=== PATIENT | male | born 1930 | race Caucasian/White ===

== ENCOUNTER → 2016-09-01 | Outpatient (CLI) | payer OTHER ==
[~2016-09-01] MED LIST: ALBUAER2 INH; ASPI81TA28 PO; ATOR-22 PO; FINA5TAB4 PO; LTN/10 PO; METO25TA56 PO; MULT-506 PO; OMEG10007 PO; OMEP40CA41 PO; TADA10TA PO
--- NOTE | 2016-09-01 10:38 | DIAGNOSTIC IMAGING REPORT ---
CT OF THE LUMBAR SPINE WITHOUT CONTRAST CT DOSE: 858.98 mGy.cm CLINICAL HISTORY: Lumbago. TECHNIQUE: Axial images of the lumbar spine were obtained without IV contrast. Sagittal and coronal reconstructions were viewed. COMPARISON STUDY: Lumbar spine radiographs June 08, 2011. FINDINGS: For purposes of numbering on this exam, the L5-S1 disc space is assigned to axial image 327 of 371. There is mild levoscoliosis of the lower lumbar spine. There is slight anterolisthesis of L4 and L5 likely due to facet arthrosis. There is a mild compression fracture of the superior endplate of L1 which is unchanged since exam of June 08, 2011. There is no acute lumbar spine fracture. There is no suspicious lesion by CT. There is moderate to severe multilevel degenerative disc disease with disc space narrowing, osteophytosis and vacuum disc phenomenon. There is moderate multilevel facet arthrosis. Paravertebral soft tissues are unremarkable. Central canal and neural foramen are suboptimally assessed by CT. There may be postsurgical changes at the L3-L4 level. There is suspected moderate central canal stenosis at L2-L3 with suspected severe central canal stenosis at L3-L4 and at least moderate central canal stenosis at L4-L5. There is moderate to severe multilevel neural foraminal stenosis. IMPRESSION: 1. No acute lumbar spine fracture or subluxation. Old mild L1 compression deformity which is unchanged since exam of June 08, 2011. 2. Moderate to severe multilevel degenerative disc disease and facet arthrosis with suspected moderate to severe multilevel central canal or neural foraminal stenosis, most pronounced at the L3-L4 and L4-L5 levels. Electronically signed by: Emmanuel Lim M.D. 09/01/2016 10:37 AM Dictated Date/Time: 09/01/2016 10:23 AM
== END | disposition home or self-care (01) ==
LOC: C.CTS 09:38
PROVIDERS: ATTEND Anesthesiology
DX: M54.5 Low back pain (principal)

== ENCOUNTER → 2016-11-16 | Outpatient (CLI) | payer OTHER ==
[~2016-11-16] MED LIST changes: -FINA5TAB4 PO
--- NOTE | 2016-11-16 13:30 | DIAGNOSTIC IMAGING REPORT ---
ULTRASOUND OF THE CAROTID ARTERIES CLINICAL HISTORY: Carotid artery stenosis status post right carotid endarterectomy. COMPARISON STUDY: Carotid artery ultrasound dated 10/06/2015. CT angiogram of the neck dated 10/15/2014. TECHNIQUE: Real-time, grayscale, and color Doppler sonography of the carotid arteries is performed. Images are reviewed in the transverse and longitudinal planes. FINDINGS: Blood pressure in the right arm measures 121/58 and blood pressure in the left arm measures 108/54. The carotid arteries are patent bilaterally and demonstrate antegrade flow. There is moderate echogenic shadowing atherosclerotic plaque seen bilaterally. Normal doppler arterial waveforms are seen throughout. Velocity measurements are listed below. Common carotid peak systolic velocity (cm/sec): RIGHT: 97 LEFT: 92 ICA proximal peak systolic velocity (cm/sec): RIGHT: 215 LEFT: 171 ICA mid peak systolic velocity (cm/sec): RIGHT: 245 LEFT: 170 ICA distal peak systolic velocity (cm/sec): RIGHT: 105 LEFT: 155 ICA/CC peak systolic ratio: RIGHT: 2.5 LEFT: 1.8 Antegrade flow was shown in the vertebral arteries. The external carotid arteries are patent. IMPRESSION: 1. Atherosclerotic plaque with evidence of 50-69% stenosis in the left proximal internal carotid artery by velocity criteria. 2. There is evidence of greater than 70% stenosis in the proximal to mid right internal carotid artery by velocity criteria. 3. These findings are similar to the 10/06/2015 examination. 4. Antegrade flow is shown in the vertebral arteries. Electronically signed by: Chicho Sanders M.D. 11/16/2016 1:29 PM Dictated Date/Time: 11/16/2016 1:26 PM
== END | disposition home or self-care (01) ==
LOC: C.ULTR 12:42
PROVIDERS: ATTEND Surgery
DX: I65.23 Occlusion and stenosis of bilateral carotid arteries (principal)

== ENCOUNTER → 2017-03-01 | Outpatient (CLI) | payer OTHER ==
[2017-03-01 13:09] LABS: ALT/SGPT 21 U/L (12-78); AST/SGOT 20 U/L (15-37); BLOOD UREA NITROGEN 24 mg/dl (7-18); BUN/CREATININE RATIO 21.6 (10-20); CALCIUM 9.2 mg/dl (8.5-10.1); CARBON DIOXIDE 25 mmol/L (21-32); CHLORIDE 108 mmol/L (98-107); CHOLESTEROL 118 mg/dl (0-200); GLUCOSE 123 mg/dl (70-99); POTASSIUM 4.2 mmol/L (3.5-5.1); SODIUM 140 mmol/L (136-145); TRIGLYCERIDES 90 mg/dl (0-150); VERY LOW DENSITY LIPOPROT CALC 18 mg/dl
[2017-03-01 13:11] LABS: ALB/GLOB RATIO 0.9 (0.9-2); ALKALINE PHOSPHATASE 139 U/L (45-117); CHOLESTEROL/HDL RATIO 2.3; ESTIMATED AVERAGE GLUCOSE 151 mg/dl; HA1C FLAG Normal (Normal); HDL CHOLESTEROL 52 mg/dl; LDL CHOLESTEROL CALCULATED 48 mg/dl
== END | disposition home or self-care (01) ==
LOC: C.LABPVFM 07:42
PROVIDERS: ATTEND Family Medicine
DX: I10 Essential (primary) hypertension (principal); E78.00 Pure hypercholesterolemia, unspecified; E80.6 Other disorders of bilirubin metabolism; J43.9 Emphysema, unspecified; R73.01 Impaired fasting glucose

== ENCOUNTER → 2017-06-15 | Outpatient (CLI) | payer OTHER ==
[2017-06-15 17:58] LABS: ALB/GLOB RATIO 0.7 (0.9-2); ALT/SGPT 26 U/L (12-78); AST/SGOT 23 U/L (15-37); BLOOD UREA NITROGEN 16 mg/dl (7-18); BUN/CREATININE RATIO 16.9 (10-20); CALCIUM 8.9 mg/dl (8.5-10.1); CARBON DIOXIDE 24 mmol/L (21-32); CHLORIDE 108 mmol/L (98-107); CREATININE 0.97 mg/dl (0.60-1.40); GLUCOSE 106 mg/dl (70-99); POTASSIUM 4.3 mmol/L (3.5-5.1); SODIUM 136 mmol/L (136-145)
[2017-06-15 17:59] LABS: ALKALINE PHOSPHATASE 131 U/L (45-117)
[2017-06-16 06:23] LABS: ESTIMATED AVERAGE GLUCOSE 143 mg/dl; HA1C FLAG Normal (Normal)
== END | disposition home or self-care (01) ==
LOC: C.LABPVFM 11:32
PROVIDERS: ATTEND Family Medicine
DX: E11.9 Type 2 diabetes mellitus without complications (principal)

== ENCOUNTER → 2017-10-16 | Outpatient (CLI) | payer OTHER ==
[2017-10-16 13:16] LABS: HEMOGLOBIN A1C 6.6 % (4.5-5.6)
[2017-10-16 13:39] LABS: ALBUMIN 3.4 gm/dl (3.4-5.0); ALT/SGPT 27 U/L (12-78); AST/SGOT 25 U/L (15-37); BLOOD UREA NITROGEN 21 mg/dl (7-18); CALCIUM 8.5 mg/dl (8.5-10.1); CARBON DIOXIDE 24 mmol/L (21-32); CHOLESTEROL 109 mg/dl (0-200); CREATININE 1.06 mg/dl (0.60-1.40); GLUCOSE 124 mg/dl (70-99); SODIUM 140 mmol/L (136-145)
[2017-10-16 13:42] LABS: ALKALINE PHOSPHATASE 105 U/L (45-117); LDL CHOLESTEROL CALCULATED 31 mg/dl; TOTAL PROTEIN 7.1 gm/dl (6.4-8.2)
== END | disposition home or self-care (01) ==
LOC: C.LABPVFM 07:36
PROVIDERS: ATTEND Family Medicine
DX: I10 Essential (primary) hypertension (principal); E78.00 Pure hypercholesterolemia, unspecified; E11.9 Type 2 diabetes mellitus without complications; I48.0 Paroxysmal atrial fibrillation; J45.909 Unspecified asthma, uncomplicated; I25.10 Atherosclerotic heart disease of native coronary artery without angina pectoris

== ENCOUNTER 2018-06-15 09:34 | Inpatient (IN) ==
[2018-06-15] MEDS ORDERED: LEVALBUTEROL HCL 1.25 MG/3 ML NEB NEB STA (10:07)
--- NOTE | 2018-06-15 10:32 | XRay Report ---
XR chest 1V portable CLINICAL HISTORY: Sepsis. COMPARISON STUDY: Chest radiograph September 22, [address] December 06, 2017. FINDINGS: Incidental note is made of a right shoulder arthroplasty and a dual lead left subclavian pa cemaker. Cardiac mediastinal silhouette is stable. There is no pneumothorax. A trace left pleural eff usion is suspected. Nodular left mid and lower lung airspace opacity is noted. A 2.6 cm nodular opaci ty is noted. Findings have developed since exam of December 06, 2017. There is no evidence for pulmonary edema. IMPRESSION: 1. Left lower lung nodular airspace opacity which favors pneumonia. Post treatment radiographs to ens ure resolution are recommended to exclude the possibility of a pulmonary nodule. 2. Trace left pleural effusion. 3. No evidence for pulmonary edema. Electronically signed by: Emmanuel Lim M.D. 06/15/2018 10:31 AM
[2018-06-15] MEDS ORDERED: levoFLOXacin 500 MG TAB PO STA (10:36)
[2018-06-15] MEDS ORDERED: PIPERACILLIN/TAZOBACTAM 4.5 GM/120 ML BAG IV ONE (10:36)
[2018-06-15] MEDS ORDERED: PIPERACILL/TAZOBAC CONSULT ACTIVE PRN ×2 (10:36→13:43)
[2018-06-15] MEDS ORDERED: methylPREDNISolone 60 MG in SYRINGE 1 ML IV STA (10:42)
[2018-06-15] MEDS ORDERED: SODIUM CHLORIDE 0.9% 1000ML 1,000 ML IV ONE (10:42)
[2018-06-15 10:55] LABS: Basophils # (auto) 0.03 K/uL (0-0.2); Basophils % (auto) 0.2 %; Hematocrit (blood only) 43.2 % (42-52); Hemoglobin 14.8 g/dL (14.0-18.0); Immature Granulocytes # (auto) 0.05 K/uL (0.00-0.02); Immature Granulocytes % (auto) 0.3 %; Lymphocytes # (auto) 0.56 K/uL (1.2-3.4); Lymphocytes % (auto) 3.5 %; Mean Corpuscular Hgb Conc 34.3 g/dL (32-36); Mean Corpuscular Volume 96.6 fL (80-100); Mean Platelet Volume 10.5 fL (7.4-10.4); Monocytes # (auto) 1.43 K/uL (0.11-0.59); Neutrophils # (auto) 13.79 K/uL (1.4-6.5); Platelet Count 190 K/uL (130-400); RDW Coefficient of Variation 13.2 % (11.5-14.5); RDW Standard Deviation 46.6 fL (36.4-46.3); Red Blood Count 4.47 M/uL (4.7-6.1); White Blood Count 15.86 K/uL (4.8-10.8)
[2018-06-15 11:06] LABS: Influenza A virus by PCR Neg for Influ A (Neg); Influenza B virus by PCR Neg for Influ B (Neg)
[2018-06-15 11:08] LABS: INR 1.2 (0.9-1.1); Partial Thromboplastin Ratio 1.2; Partial Thromboplastin Time 31.5 Seconds (21.0-31.0)
[2018-06-15 11:12] LABS: Albumin Level 2.9 gm/dl (3.4-5.0); BUN Creatinine Ratio 16.3 (10-20); Calcium 8.8 mg/dl (8.5-10.1); Creatinine Clr Calc Pharmacy 39.2 ml/min; Est GFR (African American) 56.7; Potassium 4.1 mmol/L (3.5-5.1)
[2018-06-15 11:22] LABS: Albumin Globulin Ratio 0.7 (0.9-2); Bilirubin,Total 2.2 mg/dl (0.1-1); Globulin 4.3 gm/dl (2.5-4.0); Total Protein 7.2 gm/dl (6.4-8.2); Troponin I 0.071 ng/ml (0-0.045)
--- NOTE | 2018-06-15 11:57 | History & Physical Report ---
Date of Service June 15, 2018 Assessment & Plan (1) Pneumonia: -Admit to [facility] -Continue on Xopenex nebulizers, Tessalon Perles, Mucinex, incentive spirometry , and supplemental O2 as needed - Given Solu-Medrol 60 mg in the ER, continue low dose steriods and taper - Given Zosyn, Levaquin in the ER. Patient has prolonged QT so will switch over to doxycycline and zosyn for now. - WBC elevated at 15 K , follow am labs (2) Asthma: - Xopenex nebulizers and other supportive care as above (3) Elevated troponin: -Troponin elevated at 0.071, will trend x2 more sets next set around 1600 -Likely secondary to acute illness, EKG reviewed without signs of acute ischemia or ST wave inversions (4) Paroxysmal A-fib: -Continue the patient on Eliquis 5 mg twice daily, currently in normal sinus rhythm (5) Sick sinus syndrome: (6) Cardiac pacemaker: (7) CAD (coronary artery disease): (8) Hypertension: Continue on Eliquis as above, aspirin 81 mg daily, benazepril 5 mg daily, metoprolol tartrate 25 mg BID (9) HLD (hyperlipidemia): - Continue atorvastatin (10) DM II (diabetes mellitus, type II), controlled: - ISS with Accu-Cheks - Last A1c was 6.5 in March 2018, no need to recheck at this time - HH/diabetic diet (11) DVT prophylaxis: Teds, SCDs, continue Eliquis History of Present Illness Primary Care Provider: Cynthia Jin MD This is a 88 yo M with PMHx of sick sinus syndrome, CAD, paroxysmal A. fib, dual -chamber pacemaker, HTN, HLD, DM type II, asthma, who presents with acute onset of worsening shortness of breath and weakness. Patient's and daughter are present at bedside. Patient notes that approximately 3 days ago he began feeling more weak, last evening he was unable to perform minimal exertional activities without becoming short of breath. This morning the patient was significantly short of breath and thus was brought here. Patient was found to be hypoxic at 92% on room air. He also has a productive wet cough with dark mucus. notes that he did have a fever this morning, although the patient denies sweats or chills. He has not been around any known sick contacts. Patient noted that he did feel a tightness around the left side of his lower chest, which has completely resolved at this point in time and denies that it is was an actual pain. Patient was administered a Solu-Medrol treatment and nebulizer here in the ER and feels breathing has significantly improved. Allergies Allergy/AdvReac Type Severity Reaction Status Date / Time No Known Allergies Allergy Unknown Verified 06/15/18 10:36 Home Medications Home Medications Medication Instructions Recorded Confirmed Type albuterol sulfate [Ventolin HFA] 2 puff INHALATION QID PRN 06/15/18 06/15/18 History apixaban [Eliquis] 5 mg PO BID 06/15/18 06/15/18 History aspirin 81 mg PO DAILY 06/15/18 06/15/18 History atorvastatin 20 mg PO HS 06/15/18 06/15/18 History benazepril 5 mg PO QAM 06/15/18 06/15/18 History finasteride 5 mg PO QAM 06/15/18 06/15/18 History metoprolol tartrate 25 mg PO BID 06/15/18 06/15/18 History omega 1-djg-[id number]-fish oil [Fish Oil] 1 cap PO QAM 06/15/18 06/15/18 History Past Med/Surg History Medical History Elevated troponin DM II (diabetes mellitus, type II), controlled HLD (hyperlipidemia) Sick sinus syndrome Pneumonia CAD (coronary artery disease) Cardiac pacemaker Paroxysmal A-fib Heart disease (Chronic) Hypertension (Chronic) Asthma (Chronic) Enlarged prostate (Chronic) Pancreatitis due to biliary obstruction (Resolved 07/18/14) S/P ERCP (Acute) Elevated WBCs (Acute) SIRS (systemic inflammatory response syndrome) (Acute) Surgical History Status post endoscopic retrograde cholangiopancreatography (Resolved 07/18/14) History of renal stent (Acute) Social History Current Living Situation: Spouse Other Information That Helps Us Care for You: No Feels Safe at Home: Yes Safety Concerns: Feels Safe At This Time Smoking Status: Never smoker Do You Dip or Chew Tobacco: No Second Hand Exposure: No Tobacco Cessation Education Requested by Patient: No Hx Alcohol Use: No Hx Substance Use: No Beliefs That Will Affect Care: None Preferred Language: Kyrgyz Communication Ability: Effective 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 Cardiovascular: See HPI, no tightness or palpitations Abdomen: No pain, nausea, vomiting, diarrhea or constipation Musculoskeletal: No joint pain, calf pain, swelling Neurologic: No weakness, numbness/tingling, or balance problems Psychiatric: No anxiety or depression Skin: No rash or itch Physical Exam 2 Vital Signs (Past 24 Hours): Last Vital Signs Temp 37.3 C 06/15/18 09:44 Pulse 82 06/15/18 11:40 Resp 39 H 06/15/18 11:40 BP 107/59 L 06/15/18 09:44 Pulse Ox 92 06/15/18 11:40 Physical Exam: General: awake, alert, no apparent distress Head: Normocephalic, atraumatic ENT: PERRL, EOMI, no pharyngeal exudate, mucous membranes moist Chest: + coarse rales and rhonchi at the left base, on 2 L via NC, + cough with green sputum Cardiac: Regular rate and rhythm, faint ELROY, no JVD, normal peripheral pulses, good capillary refill Abdominal: NABS x 4 quadrants, soft, nontender to palpation, no rebound, guarding or tenderness Extremities: Normal inspection, no peripheral edema or erythema, calfs nontender to palpation Psych: Normal mood and affect Neuro: AAO x 3, strength intact bilaterally and related 5/5, no motor deficits, speech is clear, no peripheral sensory deficits Results & Data Diagnostic Findings XR chest 1V portable CLINICAL HISTORY: Sepsis. COMPARISON STUDY: Chest radiograph September 22, [address] December 06, 2017. FINDINGS: Incidental note is made of a right shoulder arthroplasty and a dual lead left subclavian pacemaker. Cardiac mediastinal silhouette is stable. There is no pneumothorax. A trace left pleural effusion is suspected. Nodular left mid and lower lung airspace opacity is noted. A 2.6 cm nodular opacity is noted. Findings have developed since exam of December 06, 2017. There is no evidence for pulmonary edema. IMPRESSION: 1. Left lower lung nodular airspace opacity which favors pneumonia. Post treatment radiographs to ensure resolution are recommended to exclude the possibility of a pulmonary nodule. 2. Trace left pleural effusion. 3. No evidence for pulmonary edema. ECG Additional Comments: 15-JUN-2018 10:07:30 [facility] Ventricular-paced rhythm Abnormal ECG When compared with ECG of 22-SEP-2014 11:53, Vent. rate 80 BPM [place] interval * ms QRS duration 156 ms QT/QTc 440/507 ms P-R-T axes * -73 78 Code Status & VTE Plan Code Status Full Supervising Physician Co-Signing Physician Notes I saw and examined the patient independantly of Ms. Katharina Montelongo PA-C. I agree with the above assessment and plan with any exceptions as below: 88yo M w/ hx of DM, CAD, paroxsymal afib, and asthma who presents with community -acquired pneumonia. Overall, breathing comfortably on room air with minimal wheezing. Will treat with CAP abx, DuoNebs, and monitor.
[2018-06-15] MEDS ORDERED: ONDANSETRON INJ 2 MG/ML 2 ML VIAL IV PRN (13:43)
[2018-06-15] MEDS ORDERED: PIPERACILLIN/TAZOBACTAM 4.5 GM/120 ML BAG IV SCH (13:43)
[2018-06-15] MEDS ORDERED: ALBUTEROL HFA 8 GM INHALER INH PRN (13:43)
[2018-06-15] MEDS ORDERED: LEVALBUTEROL 1.25MG/0.5ML NEB NEB PRN (14:02)
[2018-06-15] MEDS: BENZONATATE 100 MG CAPSULE PO SCH ×2 (15:26→21:02)
[2018-06-15] MEDS: PIPERACILLIN/TAZOBACTAM 3.375 GM in DEXTROSE 5% 100 ML IV SCH (17:47)
[2018-06-15] MEDS: LEVALBUTEROL 1.25MG/0.5ML NEB NEB SCH (19:00)
[2018-06-15] MEDS ORDERED: ATORVASTATIN 20 MG TAB PO SCH (21:00)
[2018-06-15] MEDS: METOPROLOL TARTRATE 25 MG TAB PO SCH (21:02)
[2018-06-15] MEDS: APIXABAN 5 MG TABLET PO SCH (21:02)
[2018-06-15] MEDS: guaiFENesin 600 MG TABCR PO SCH (21:03)
[2018-06-15] MEDS: DOXYCYCLINE HYCLATE 100 MG in DEXTROSE 5% 100 ML IV SCH (21:41)
[2018-06-15] MEDS: methylPREDNISolone 40 MG in SYRINGE 0 ML IV SCH (21:41)
[2018-06-16] MEDS: LEVALBUTEROL 1.25MG/0.5ML NEB NEB SCH ×3 (01:50→13:50)
[2018-06-16] MEDS: PIPERACILLIN/TAZOBACTAM 3.375 GM in DEXTROSE 5% 100 ML IV SCH ×2 (01:55→10:33)
[2018-06-16 06:27] LABS: Hematocrit (blood only) 39.9 % (42-52); Hemoglobin 13.8 g/dL (14.0-18.0); Mean Corpuscular Hgb Conc 34.6 g/dL (32-36); Mean Corpuscular Volume 96.4 fL (80-100); Mean Platelet Volume 10.1 fL (7.4-10.4); Platelet Count 200 K/uL (130-400); RDW Coefficient of Variation 13.3 % (11.5-14.5); RDW Standard Deviation 46.7 fL (36.4-46.3); Red Blood Count 4.14 M/uL (4.7-6.1); White Blood Count 12.55 K/uL (4.8-10.8)
[2018-06-16 07:26] LABS: Albumin Globulin Ratio 0.6 (0.9-2); Albumin Level 2.8 gm/dl (3.4-5.0); BUN Creatinine Ratio 16.8 (10-20); Bilirubin,Total 1.8 mg/dl (0.1-1); Calcium 8.7 mg/dl (8.5-10.1); Creatinine Clr Calc Pharmacy 37.7 ml/min; Est GFR (African American) 48.2; Est GFR (Non-African American) 41.6; Globulin 4.4 gm/dl (2.5-4.0); Potassium 3.9 mmol/L (3.5-5.1); Total Protein 7.2 gm/dl (6.4-8.2)
[2018-06-16] MEDS: BENZONATATE 100 MG CAPSULE PO SCH ×2 (08:06→12:55)
[2018-06-16] MEDS: METOPROLOL TARTRATE 25 MG TAB PO SCH (08:06)
[2018-06-16] MEDS: APIXABAN 5 MG TABLET PO SCH (08:07)
[2018-06-16] MEDS: guaiFENesin 600 MG TABCR PO SCH (08:07)
[2018-06-16] MEDS: DOXYCYCLINE HYCLATE 100 MG in DEXTROSE 5% 100 ML IV SCH (08:15)
[2018-06-16] MEDS ORDERED: OMEGA-3 (PURIFIED FISH OIL) 1 GM CAP PO SCH (09:00)
[2018-06-16] MEDS ORDERED: ASPIRIN 81 MG ECTAB PO SCH (09:00)
[2018-06-16] MEDS ORDERED: ENALAPRIL MALEATE 5 MG TAB PO SCH (09:00)
[2018-06-16] MEDS ORDERED: FINASTERIDE 5 MG TAB PO SCH (09:00)
[2018-06-16] MEDS ORDERED: SODIUM CHLORIDE 0.9% 1000ML 500 ML IV ONE (10:17)
[2018-06-16] MEDS: methylPREDNISolone 40 MG in SYRINGE 0 ML IV SCH (10:32)
--- NOTE | 2018-06-16 15:52 | Discharge Summary ---
Date of Service June 16, 2018 Admission HPI Per Admitting Provider This is a 88 yo M with PMHx of sick sinus syndrome, CAD, paroxysmal A. fib, dual -chamber pacemaker, HTN, HLD, DM type II, asthma, who presents with acute onset of worsening shortness of breath and weakness. Patient's and daughter are present at bedside. Patient notes that approximately 3 days ago he began feeling more weak, last evening he was unable to perform minimal exertional activities without becoming short of breath. This morning the patient was significantly short of breath and thus was brought here. Patient was found to be hypoxic at 92% on room air. He also has a productive wet cough with dark mucus. notes that he did have a fever this morning, although the patient denies sweats or chills. He has not been around any known sick contacts. Patient noted that he did feel a tightness around the left side of his lower chest, which has completely resolved at this point in time and denies that it is was an actual pain. Patient was administered a Solu-Medrol treatment and nebulizer here in the ER and feels breathing has significantly improved. Principal Diagnosis Community-acquired pneumonia Discharge Exam Constitutional WD/WN, vitals as above Eyes EOM intact bilaterally; no conjunctival abnormality ENMT external ear and nose normal, oropharynx normal Neck trachea midline, no thyromegaly normal visual inspection Respiratory normal respiratory effort, lungs clear to auscultation no respiratory distress Cardiovascular RRR, no murmur, no edema Gastrointestinal (Abdomen) Inspection/Auscultation: abdomen normal to inspection; abdomen not distended Musculoskeletal no cyanosis or clubbing, extremities motor strength 5/5 Skin no rashes, warm and dry Neurologic moves all extremities and awake Psychiatric Orientation: alert, oriented to person and cooperative Discharge Data Allergies Allergy/AdvReac Type Severity Reaction Status Date / Time No Known Allergies Allergy Unknown Verified 06/15/18 10:36 Consultations 06/15/18 11:27 ED Decision to Admit Stat 06/15/18 13:43 Consult Case Management - Discharge Planning Routine Hospital Course (1) Pneumonia: Started on doxyclycine and Zosyn as we couldn't do levoquin due to his QTc. Also did standing nebulizers. By 24 hours, he felt much better and requested discharge. Discharged on doxycycline and Augmentin to cover usual community-acquired pneumonia bugs. Short course of steroids to also reduce lung inflammation. Follow up with PCP in 1 week. On room air on discharge. (2) Asthma: - Xopenex nebulizers and other supportive care as above (3) Elevated serum creatinine: Baseline Creatinine appears to be ~1.3. On discharge, it was 1.5. Possibly due to some mild retention as he had a bladder scan, then a straight cath with ~250 mL of urine. However, he is on a BPH med, and this seemed to be fairly typical symptom-galloway for him. Will get repeat BMP with his PCP in 1 week to ensure stability, and can consider adding tamsulosin to his regimen if needed. (4) Elevated troponin: Troponins elevated at 0.07 x 2. EKG was non-ischemic. No chest pain. Likely mild demand ischemia from infection. Follow up outpatient. (5) Paroxysmal A-fib: -Continue the patient on Eliquis 5 mg twice daily, currently in normal sinus rhythm (6) Sick sinus syndrome: (7) Cardiac pacemaker: (8) CAD (coronary artery disease): (9) Hypertension: Continued benazepril 5 mg daily, metoprolol tartrate 25 mg BID. BP good while inpatient. (10) HLD (hyperlipidemia): - Continue atorvastatin (11) DM II (diabetes mellitus, type II), controlled: Last A1c was 6.5 in March 2018, no need to recheck while inpatient. BP was mildly elevated while inpatient, but likely due to steroids which will be self-limited. - HH/diabetic diet Total Time Total Time Spent Total Time Spent (In Minutes): 35 Total Time Includes: Examination of the Patient, Discharge Planning, Medication Reconciliation and Communication With Other Providers Discharge Plan Discharge Items Patient Disposition: Home - Self-Care Reason For Visit: PNEUMONIA, ACUTE HYPOXIC RESPIRATORY FAILURE Discharge Diagnosis: Pneumonia Condition: Good Discharge Goals: Improve function Activity: Resume your previous activity Non-emergency contact: Primary Care Provider Call non-emergency contact if: you have any medication questions, your symptoms worsen and your temperature is above 100.5 Follow-up/Referrals: Cynthia Jin MD [Primary Care Provider] - (Please see Dr. iJn next week to check up on your breathing and be sure your kidney function is ok.) Diet: Heart Healthy Addtl Provider Instructions: Mr. Dempsey, You were admitted to the hospital with pneumonia which was causing your asthma to get worse. We gave you some breathing treatments, antibiotics, and steroids, and your breathing improved within a day. We are giving you a pair of antibiotics to take for 4 more days, along with 4 more days of steroids. Please use your albuterol inhaler as needed, though if you need to use it more than 3-4 times a day for more than another 1-2 days, please let Dr. Jin know, and she may need to see you sooner or send you back to the Emergency Department for a few breathing treatments. I would like her to get a kidney function when you see her next week to be sure it is stable. Take the first dose of the two antibiotics (doxycycline and Augmentin) tonight, then two times per day until they are gone. Take the steroid tomorrow morning ( 2 tablets for each dose), then every morning after that until it is gone as well. All 3 medications should end on June 19. Prescriptions: New doxycycline hyclate 100 mg capsule 100 mg PO BID Qty: 7 RF: 0 prednisone 20 mg tablet 40 mg PO DAILY Qty: 6 RF: 0 amoxicillin-pot clavulanate [Augmentin] 875-125 mg tablet 1 tab PO BID Qty: 7 RF: 0 Continue atorvastatin 20 mg tablet 20 mg PO HS RF: 0 benazepril 5 mg tablet 5 mg PO QAM RF: 0 aspirin 81 mg Tablet,Delayed Release (Dr/Ec) 81 mg PO DAILY RF: 0 albuterol sulfate 90 mcg/actuation HFA aerosol inhaler 2 puff Inhalation QID PRN (Reason: Shortness Of Breath Or Wheezing) RF: 0 finasteride 5 mg tablet 5 mg PO QAM RF: 0 metoprolol tartrate 25 mg tablet 25 mg PO BID RF: 0 omega 9-wju-kpn-fish oil [Fish Oil] 1,000 mg (120 mg-180 mg) Capsule 1 cap PO QAM RF: 0 apixaban 5 mg tablet 5 mg PO BID RF: 0 Visit Report Forms: My [facility] [employer] Stand-Alone Forms: My [facility] Discharge Orders: Discharge Order (Routine); Ordered 06/16/18 Ordered By: Himanshu Voss Admission Data Admit Date/Time: 06/15/18 12:07 Attending Provider: Himanshu Voss Admit Provider: Himanshu Voss Primary Care Provider: Cynthia Jin Other Providers: Himanshu Voss Service: Telemetry Medical Other Interventions: Discharge Summary Assessment (RN) Last Done: 06/16/18 12:58 DC Date/Time DO NOT enter until pt leaves facility: 06/16/18 14:04
--- NOTE | 2018-06-16 19:14 | Emergency Department Note ---
Entered by Kaleb Fountain acting as a scribe for History of Present Illness General Chief complaint: Fever Stated complaint: FEVER,COLD Time Seen by Provider: 06/15/18 09:58 Source: patient Limitations: no limitations History of Present Illness Provider complaint: Cough/Chest Pain Onset (ago): hour(s) (Last night) Location: chest Pain Consistency: + other (persistent) Maximum Pain Intensity: 5 Quality: + other (Cough) Associated symptoms: + chest pain and + fever/chills Treatments prior to arrival: other (home inhalers. ) The patient is an 88 year old male who presents to the Emergency Room with complaints of a persistent cough throughout the night last night. The patient states that he could not sleep last night as he was coughing persistently. He then developed upper chest discomfort. He notes that it was not a "sharp pain" but was uncomfortable. He believes the pain was secondary to the significance of the cough and adds that it is resolved at this time. The family members at bedside add that he did have a fever 102.0 degrees. He does have a history of asthma and has inhalers at home. He notes he has been using his inhalers as prescribed. Home Medications Home Medications Medication Instructions Recorded Confirmed Type albuterol sulfate 2 puff INHALATION QID PRN 06/15/18 06/15/18 History apixaban 5 mg PO BID 06/15/18 06/15/18 History aspirin 81 mg PO DAILY 06/15/18 06/15/18 History atorvastatin 20 mg PO HS 06/15/18 06/15/18 History benazepril 5 mg PO QAM 06/15/18 06/15/18 History finasteride 5 mg PO QAM 06/15/18 06/15/18 History metoprolol tartrate 25 mg PO BID 06/15/18 06/15/18 History omega 3-[id number] oil [Fish Oil] 1 cap PO QAM 06/15/18 06/15/18 History amoxicillin-pot clavulanate 1 tab PO BID #7 tab 06/16/18 Rx [Augmentin] doxycycline hyclate 100 mg PO BID #7 cap 06/16/18 Rx prednisone 40 mg PO DAILY #6 tab 06/16/18 Rx Allergies Allergy/AdvReac Type Severity Reaction Status Date / Time No Known Allergies Allergy Unknown Verified 06/15/18 10:36 Past Med/Surg History Medical History Elevated troponin DM II (diabetes mellitus, type II), controlled HLD (hyperlipidemia) Sick sinus syndrome Pneumonia CAD (coronary artery disease) Cardiac pacemaker Paroxysmal A-fib Heart disease (Chronic) Hypertension (Chronic) Asthma (Chronic) Enlarged prostate (Chronic) Pancreatitis due to biliary obstruction (Resolved 07/18/14) S/P ERCP (Acute) Elevated WBCs (Acute) SIRS (systemic inflammatory response syndrome) (Acute) Surgical History Status post endoscopic retrograde cholangiopancreatography (Resolved 07/18/14) History of renal stent (Acute) Social History marital status: Current Living Situation: Spouse Other Information That Helps Us Care for You: No Feels Safe at Home: Yes Safety Concerns: Feels Safe At This Time Smoking Status: Never smoker Do You Dip or Chew Tobacco: No Second Hand Exposure: No Tobacco Cessation Education Requested by Patient: No Hx Alcohol Use: No Hx Substance Use: No Beliefs That Will Affect Care: None Preferred Language: Ecuadorean Review of Systems See HPI for pertinent positives & negatives. and A total of 10 systems reviewed and were otherwise negative Physical Exam Vital Signs Vital Signs - 24 hr 06/15/18 19:34 06/15/18 22:06 06/15/18 22:20 Temperature Temperature Source Pulse Rate 75 Pulse Rate [Radial] 78 Pulse Rhythm [Radial] Pulse Strength [Radial] Respiratory Rate 16 Respiratory Effort / Characteristics Non-Labored Non-Labored Respiratory Depth Respiratory Pattern Regular Blood Pressure [Right Arm] Blood Pressure Mean [Right Arm] Blood Pressure Position [Right Arm] Pulse Oximetry 96 Oxygen Delivery Method Room Air Room Air 06/15/18 23:33 06/16/18 01:50 06/16/18 07:14 Temperature 36.7 C Temperature Source Oral Pulse Rate Pulse Rate [Radial] 79 79 76 Pulse Rhythm [Radial] Regular Pulse Strength [Radial] Normal Respiratory Rate 16 16 16 Respiratory Effort / Characteristics Non-Labored Non-Labored Non-Labored Spontaneous Respiratory Depth Normal Respiratory Pattern Regular Blood Pressure [Right Arm] 113/70 Blood Pressure Mean [Right Arm] 84 Blood Pressure Position [Right Arm] Lying Pulse Oximetry 94 94 97 Oxygen Delivery Method Room Air Room Air Room Air 06/16/18 07:26 06/16/18 08:45 06/16/18 12:58 Temperature 36.6 C 36.6 C Temperature Source Oral Pulse Rate Pulse Rate [Radial] 76 76 Pulse Rhythm [Radial] Pulse Strength [Radial] Respiratory Rate 18 18 Respiratory Effort / Characteristics Non-Labored Respiratory Depth Normal Respiratory Pattern Regular Blood Pressure [Right Arm] 144/71 H 144/71 H Blood Pressure Mean [Right Arm] 95 Blood Pressure Position [Right Arm] Pulse Oximetry 97 97 Oxygen Delivery Method Room Air GENERAL: Awake, alert, well-appearing, in no acute distress. Coughing persistently on exam. HENT: Normocephalic, atraumatic. Oropharynx unremarkable. EYES: Normal conjunctiva. Sclera non-icteric. NECK: Supple. No nuchal rigidity. FROM. No JVD. RESPIRATORY: Slight wheezes at the bases. CARDIAC: Regular rate, normal rhythm. Extremities warm and well perfused. Pulses equal. ABDOMEN: Soft, non-distended. No tenderness to palpation. No rebound or guarding. No masses. RECTAL: Deferred. MUSCULOSKELETAL: Chest examination reveals no tenderness. The back is symmetrical on inspection without obvious abnormality. There is no CVA tenderness to palpation. No joint edema. LOWER EXTREMITIES: Calves are equal size bilaterally and non-tender. No edema. No discoloration. NEURO: Normal sensorium. No sensory or motor deficits noted. SKIN: No rash or jaundice noted. Course 1002: Past medical records reviewed. The patient was evaluated in room A12B, and a complete history and physical examination were performed. 1127: I reviewed the patient's case with Katharina Hoover PA-C. She will evaluate the patient for further management. Consultations Consultation #1: 1127: I reviewed the patient's case with Katharina Hoover PA-C. She will evaluate the patient for further management. Administered Medications Discontinued Medications Apixaban (Eliquis) 5 mg PO BID [facility] Stop: 07/15/18 20:59 Last Admin: 06/16/18 08:07 Dose: 5 mg Admin: 06/15/18 21:02 Dose: 5 mg Aspirin (Ecotrin) 81 mg PO DAILY [facility] Stop: 07/16/18 08:59 Last Admin: 06/16/18 08:07 Dose: 81 mg Atorvastatin Calcium (Lipitor) 20 mg PO HS [facility] Stop: 07/15/18 20:59 Last Admin: 06/15/18 21:01 Dose: 20 mg Benzonatate (Tessalon Perle) 100 mg PO TID [facility] Stop: 07/15/18 13:59 Last Admin: 06/16/18 12:55 Dose: 100 mg Admin: 06/16/18 08:06 Dose: 100 mg Admin: 06/15/18 21:02 Dose: 100 mg Admin: 06/15/18 15:26 Dose: 100 mg Enalapril Maleate (Vasotec) 5 mg PO QAM [facility] Stop: 07/16/18 08:59 Last Admin: 06/16/18 08:06 Dose: 5 mg Finasteride (Proscar) 5 mg PO QAM [facility] Stop: 07/16/18 08:59 Last Admin: 06/16/18 08:06 Dose: 5 mg Fish Oil (Flomot-3 (Purified Fish Oil)) 1 gm PO QAM [facility] Stop: 07/16/18 08:59 Last Admin: 06/16/18 08:07 Dose: 1 gm Guaifenesin (Mucinex) 1,200 mg PO Q12 [facility] Stop: 07/15/18 20:59 Last Admin: 06/16/18 08:07 Dose: 1,200 mg Admin: 06/15/18 21:03 Dose: 1,200 mg Piperacillin Sod/Tazobactam Sod (Zosyn) 4.5 gm in 120 mls @ 240 mls/hr IV NOW ONE Stop: 06/15/18 11:05 Last Infusion: 06/15/18 12:15 Dose: 0 mls/hr Admin: 06/15/18 11:30 Dose: 240 mls/hr Methylprednisolone 60 mg/ (Syringe) 1.96 mls @ 1.5 mls/min IV NOW STA Stop: 06/15/18 10:43 Last Admin: 06/15/18 11:46 Dose: 1.5 mls/min Sodium Chloride (Nss 1000ml) 1,000 mls @ 999 mls/hr IV .Q1H1M ONE Stop: 06/15/18 11:42 Last Infusion: 06/15/18 12:30 Dose: 0 mls/hr Admin: 06/15/18 11:30 Dose: 999 mls/hr Doxycycline Hyclate 100 mg/ (Dextrose) 110 mls @ 50 mls/hr IV Q12 [facility]; Protocol Stop: 06/22/18 20:59 Last Admin: 06/16/18 08:15 Dose: 50 mls/hr Infusion: 06/16/18 00:03 Dose: 0 mls/hr Admin: 06/15/18 21:41 Dose: 50 mls/hr Piperacillin Sod/Tazobactam (Sod 3.375 gm/ Dextrose) 115 mls @ 28.75 mls/hr IV Q8H [facility]; Protocol Stop: 06/22/18 16:59 Last Admin: 06/16/18 10:33 Dose: 28.8 mls/hr Infusion: 06/16/18 06:00 Dose: 0 mls/hr Admin: 06/16/18 01:55 Dose: 28.8 mls/hr Infusion: 06/15/18 21:47 Dose: 0 mls/hr Admin: 06/15/18 17:47 Dose: 28.8 mls/hr Methylprednisolone 40 mg/ (Syringe) 0.64 mls @ 1.5 mls/min IV Q12H [facility] Stop: 07/15/18 21:59 Last Admin: 06/16/18 10:32 Dose: 1.5 mls/min Admin: 06/15/18 21:41 Dose: 1.5 mls/min Levalbuterol HCl (Xopenenx 1.25mg/3ml Neb) 1.25 mg NEB NOW STA Stop: 06/15/18 10:08 Last Admin: 06/15/18 11:18 Dose: 1.25 mg Levalbuterol HCl (Xopenex 1.25mg/0.5ml Neb) 1.25 mg NEB Q6R [facility] Stop: 07/15/18 13:59 Last Admin: 06/16/18 13:50 Dose: Not Given Admin: 06/16/18 07:13 Dose: 1.25 mg Admin: 06/16/18 01:50 Dose: 1.25 mg Admin: 06/15/18 19:00 Dose: 1.25 mg Levofloxacin (Levaquin) 500 mg PO NOW STA Stop: 06/15/18 10:37 Last Admin: 06/15/18 11:43 Dose: 500 mg Methylprednisolone (Solu-Medrol) Confirm Administered Dose 80 mg .ROUTE .STK- MED ONE Stop: 06/15/18 11:29 Last Admin: 06/15/18 11:45 Dose: Not Given Metoprolol Tartrate (Lopressor) 25 mg PO BID [facility] Stop: 07/15/18 20:59 Last Admin: 06/16/18 08:06 Dose: 25 mg Admin: 06/15/18 21:02 Dose: 25 mg Medical Decision Making Differential Diagnosis Differential diagnosis: Etiologies such as shingles, musculoskeletal pain, pericarditis, myocarditis, cardiac ischemia, pericardial tamponade, pneumonia, pneumothorax, pleural effusion, hemothorax, pleurisy, aortic pathology, pulmonary embolism, intra- abdominal process, as well as others were considered. Medical Records Attestation: I reviewed the patient's medical records. Home Medications Current Medication List: was personally reviewed by me Laboratory Data Attestation: I reviewed the patient's lab results. Result diagrams: 06/16/18 05:50 06/16/18 05:50 Lab Results 06/15/18 06/15/18 06/15/18 Range/Units 10:30 10:35 10:35 WBC 15.86 H (4.8-10.8) K/uL RBC 4.47 L (4.7-6.1) M/uL Hgb 14.8 (14.0-18.0) g/dL Hct 43.2 (42-52) % MCV 96.6 (80-100) fL MCH 33.1 (25-34) pg MCHC 34.3 (32-36) g/dL RDW Std Deviation 46.6 H (36.4-46.3) fL RDW Coeff of Yuliya 13.2 (11.5-14.5) % Plt Count 190 (130-400) K/uL MPV 10.5 H (7.4-10.4) fL Immature Gran % (Auto) 0.3 % Neut % (Auto) 87.0 % Lymph % (Auto) 3.5 % [place] % (Auto) 9.0 % Eos % (Auto) 0.0 % Baso % (Auto) 0.2 % Immature Gran # (Auto) 0.05 H (0.00-0.02) K/uL Neut # (Auto) 13.79 H (1.4-6.5) K/uL Lymph # (Auto) 0.56 L (1.2-3.4) K/uL [place] # (Auto) 1.43 H (0.11-0.59) K/uL Eos # (Auto) 0.00 (0-0.5) K/uL Baso # (Auto) 0.03 (0-0.2) K/uL PT 12.0 (9.0-12.0) Seconds INR 1.2 H (0.9-1.1) APTT 31.5 H (21.0-31.0) Seconds PTT Ratio 1.2 Sodium (136-145) mmol/L Potassium (3.5-5.1) mmol/L Chloride (98-107) mmol/L Carbon Dioxide (21-32) mmol/L Anion Gap (3-11) BUN (7-18) mg/dl Creatinine (0.6-1.4) mg/dl Est Cr Clr Drug Dosing ml/min Est GFR ( Amer) Est GFR (Non-Af Amer) BUN/Creatinine Ratio (10-20) Glucose (70-99) mg/dl POC Glucose (70-99) Lactate (0.4-2.0) mmol/L Calcium (8.5-10.1) mg/dl Total Bilirubin (0.1-1) mg/dl AST (15-37) U/L ALT (12-78) U/L Alkaline Phosphatase (45-117) U/L Total Creatine Kinase (39-308) U/L CK-MB (CK-2) (0.5-3.6) ng/ml CK/CKMB % Calc (0-3.0) Troponin I (0-0.045) ng/ml Total Protein (6.4-8.2) gm/dl Albumin (3.4-5.0) gm/dl Globulin (2.5-4.0) gm/dl Albumin/Globulin Ratio (0.9-2) Influenza Type A (PCR) Neg for Influ A (Neg) Influenza Type B (PCR) Neg for Influ B (Neg) 06/15/18 06/15/18 06/15/18 Range/Units 10:35 10:35 15:57 WBC (4.8-10.8) K/uL RBC (4.7-6.1) M/uL Hgb (14.0-18.0) g/dL Hct (42-52) % MCV (80-100) fL MCH (25-34) pg MCHC (32-36) g/dL RDW Std Deviation (36.4-46.3) fL RDW Coeff of Yuliya (11.5-14.5) % Plt Count (130-400) K/uL MPV (7.4-10.4) fL Immature Gran % (Auto) % Neut % (Auto) % Lymph % (Auto) % [place] % (Auto) % Eos % (Auto) % Baso % (Auto) % Immature Gran # (Auto) (0.00-0.02) K/uL Neut # (Auto) (1.4-6.5) K/uL Lymph # (Auto) (1.2-3.4) K/uL [place] # (Auto) (0.11-0.59) K/uL Eos # (Auto) (0-0.5) K/uL Baso # (Auto) (0-0.2) K/uL PT (9.0-12.0) Seconds INR (0.9-1.1) APTT (21.0-31.0) Seconds PTT Ratio Sodium 134 L (136-145) mmol/L Potassium 4.1 (3.5-5.1) mmol/L Chloride 101 (98-107) mmol/L Carbon Dioxide 23 (21-32) mmol/L Anion Gap 10.0 (3-11) BUN 21 H (7-18) mg/dl Creatinine 1.31 (0.6-1.4) mg/dl Est Cr Clr Drug Dosing 39.2 ml/min Est GFR ( Amer) 56.7 Est GFR (Non-Af Amer) 49.0 BUN/Creatinine Ratio 16.3 (10-20) Glucose 168 H (70-99) mg/dl POC Glucose (70-99) Lactate 1.7 (0.4-2.0) mmol/L Calcium 8.8 (8.5-10.1) mg/dl Total Bilirubin 2.2 H (0.1-1) mg/dl AST 12 L (15-37) U/L ALT 24 (12-78) U/L Alkaline Phosphatase 119 H (45-117) U/L Total Creatine Kinase 67 (39-308) U/L CK-MB (CK-2) 2.0 (0.5-3.6) ng/ml CK/CKMB % Calc 3.0 (0-3.0) Troponin I 0.071 H* 0.070 H* (0-0.045) ng/ml Total Protein 7.2 (6.4-8.2) gm/dl Albumin 2.9 L (3.4-5.0) gm/dl Globulin 4.3 H (2.5-4.0) gm/dl Albumin/Globulin Ratio 0.7 L (0.9-2) Influenza Type A (PCR) (Neg) Influenza Type B (PCR) (Neg) 06/16/18 06/16/18 06/16/18 Range/Units 05:50 05:50 11:53 WBC 12.55 H (4.8-10.8) K/uL RBC 4.14 L (4.7-6.1) M/uL Hgb 13.8 L (14.0-18.0) g/dL Hct 39.9 L (42-52) % MCV 96.4 (80-100) fL MCH 33.3 (25-34) pg MCHC 34.6 (32-36) g/dL RDW Std Deviation 46.7 H (36.4-46.3) fL RDW Coeff of Yuliya 13.3 (11.5-14.5) % Plt Count 200 (130-400) K/uL MPV 10.1 (7.4-10.4) fL Immature Gran % (Auto) % Neut % (Auto) % Lymph % (Auto) % [place] % (Auto) % Eos % (Auto) % Baso % (Auto) % Immature Gran # (Auto) (0.00-0.02) K/uL Neut # (Auto) (1.4-6.5) K/uL Lymph # (Auto) (1.2-3.4) K/uL [place] # (Auto) (0.11-0.59) K/uL Eos # (Auto) (0-0.5) K/uL Baso # (Auto) (0-0.2) K/uL PT (9.0-12.0) Seconds INR (0.9-1.1) APTT (21.0-31.0) Seconds PTT Ratio Sodium 134 L (136-145) mmol/L Potassium 3.9 (3.5-5.1) mmol/L Chloride 101 (98-107) mmol/L Carbon Dioxide 24 (21-32) mmol/L Anion Gap 9.0 (3-11) BUN 25 H (7-18) mg/dl Creatinine 1.50 H (0.6-1.4) mg/dl Est Cr Clr Drug Dosing 37.7 ml/min Est GFR ( Amer) 48.2 Est GFR (Non-Af Amer) 41.6 BUN/Creatinine Ratio 16.8 (10-20) Glucose 277 H (70-99) mg/dl POC Glucose 316 H (70-99) Lactate (0.4-2.0) mmol/L Calcium 8.7 (8.5-10.1) mg/dl Total Bilirubin 1.8 H (0.1-1) mg/dl AST 18 (15-37) U/L ALT 23 (12-78) U/L Alkaline Phosphatase 106 (45-117) U/L Total Creatine Kinase (39-308) U/L CK-MB (CK-2) (0.5-3.6) ng/ml CK/CKMB % Calc (0-3.0) Troponin I (0-0.045) ng/ml Total Protein 7.2 (6.4-8.2) gm/dl Albumin 2.8 L (3.4-5.0) gm/dl Globulin 4.4 H (2.5-4.0) gm/dl Albumin/Globulin Ratio 0.6 L (0.9-2) Influenza Type A (PCR) (Neg) Influenza Type B (PCR) (Neg) 06/16/18 Range/Units 11:53 WBC (4.8-10.8) K/uL RBC (4.7-6.1) M/uL Hgb (14.0-18.0) g/dL Hct (42-52) % MCV (80-100) fL MCH (25-34) pg MCHC (32-36) g/dL RDW Std Deviation (36.4-46.3) fL RDW Coeff of Yuliya (11.5-14.5) % Plt Count (130-400) K/uL MPV (7.4-10.4) fL Immature Gran % (Auto) % Neut % (Auto) % Lymph % (Auto) % [place] % (Auto) % Eos % (Auto) % Baso % (Auto) % Immature Gran # (Auto) (0.00-0.02) K/uL Neut # (Auto) (1.4-6.5) K/uL Lymph # (Auto) (1.2-3.4) K/uL [place] # (Auto) (0.11-0.59) K/uL Eos # (Auto) (0-0.5) K/uL Baso # (Auto) (0-0.2) K/uL PT (9.0-12.0) Seconds INR (0.9-1.1) APTT (21.0-31.0) Seconds PTT Ratio Sodium (136-145) mmol/L Potassium (3.5-5.1) mmol/L Chloride (98-107) mmol/L Carbon Dioxide (21-32) mmol/L Anion Gap (3-11) BUN (7-18) mg/dl Creatinine (0.6-1.4) mg/dl Est Cr Clr Drug Dosing ml/min Est GFR ( Amer) Est GFR (Non-Af Amer) BUN/Creatinine Ratio (10-20) Glucose (70-99) mg/dl POC Glucose 321 H (70-99) Lactate (0.4-2.0) mmol/L Calcium (8.5-10.1) mg/dl Total Bilirubin (0.1-1) mg/dl AST (15-37) U/L ALT (12-78) U/L Alkaline Phosphatase (45-117) U/L Total Creatine Kinase (39-308) U/L CK-MB (CK-2) (0.5-3.6) ng/ml CK/CKMB % Calc (0-3.0) Troponin I (0-0.045) ng/ml Total Protein (6.4-8.2) gm/dl Albumin (3.4-5.0) gm/dl Globulin (2.5-4.0) gm/dl Albumin/Globulin Ratio (0.9-2) Influenza Type A (PCR) (Neg) Influenza Type B (PCR) (Neg) Imaging Data Attestation: I personally reviewed and interpreted this imaging study as follows : Radiologist's Impression: XR chest 1V portable CLINICAL HISTORY: Sepsis. COMPARISON STUDY: Chest radiograph September 22, [address] December 06, 2017. FINDINGS: Incidental note is made of a right shoulder arthroplasty and a dual lead left subclavian pacemaker. Cardiac mediastinal silhouette is stable. There is no pneumothorax. A trace left pleural effusion is suspected. Nodular left mid and lower lung airspace opacity is noted. A 2.6 cm nodular opacity is noted. Findings have developed since exam of December 06, 2017. There is no evidence for pulmonary edema. IMPRESSION: 1. Left lower lung nodular airspace opacity which favors pneumonia. Post treatment radiographs to ensure resolution are recommended to exclude the possibility of a pulmonary nodule. 2. Trace left pleural effusion. 3. No evidence for pulmonary edema. Electronically signed by: Emmanuel Lim M.D. 06/15/2018 10:31 AM ECG Data Attestation: I personally reviewed and interpreted this ECG as follows: Indication: chest pain Rate (beats per minute): 80 Rhythm: other (Paced rhythm) Findings: no ST depression and no ST elevation Blood Pressure Blood Pressure Findings: Normal blood pressure MDM Narrative This is an 88-year-old male who presents emergency department complaining of cough. Patient appears to have pneumonia on chest x-ray. Based on these findings blood cultures were obtained the patient was started on Zosyn Levaquin and vancomycin. I will note that the patient also has an elevation in his troponin. Based on these findings I did discuss the case with the hospitalist service who agreed to admit the patient. Patient was in agreement with the treatment plan. Impression & Plan Left lower lobe pneumonia Discharge Plan Visit Data *Final* Discharge Date/Time: 06/15/18 13:17 Chief Complaint: Fever Stated Complaint: FEVER,COLD ED Provider: Praneeth Macdonald Discharge Problem: Left lower lobe pneumonia Patient Disposition: Admitted As Inpatient Condition: Good Discharge Instructions Interventions: ED Discharge Assessment Last Done: 06/15/18 13:17 The scribe's documentation has been prepared under my direction and personally reviewed by me in its entirety. I confirm that the note above accurately reflects all work, treatment, procedures, and medical decision making performed by me.
== END 2018-06-16 14:04 | disposition home or self-care (01) | DRG 195 ==
LOC: ED 09:34 → 2N 12:07

== ENCOUNTER 2018-08-18 07:05 | Inpatient (IN) ==
[2018-08-18] MEDS ORDERED: methylPREDNISolone 125 MG/2 ML VIAL IV STA (07:40)
[2018-08-18] MEDS ORDERED: ALBUT/IPRATROP 3MG/0.5MG NEB 3 ML VIAL NEB STA ×2 (07:40→08:41)
--- NOTE | 2018-08-18 07:45 | Emergency Department Note ---
ED Visit Note I assisted in the care of this patient with Dr. Villa . Resident Activity Tracking Resident Involvement: Resident Care Provided Care Provided: Adult ED
[2018-08-18 08:05] LABS: Basophils # (auto) 0.01 K/uL (0-0.2); Basophils % (auto) 0.2 %; Eosinophils # (auto) 0.04 K/uL (0-0.5); Eosinophils % (auto) 0.9 %; Hematocrit (blood only) 39.4 % (42-52); Hemoglobin 12.9 g/dL (14.0-18.0); Immature Granulocytes # (auto) 0.01 K/uL (0.00-0.02); Immature Granulocytes % (auto) 0.2 %; Lymphocytes # (auto) 0.72 K/uL (1.2-3.4); Mean Corpuscular Hgb Conc 32.7 g/dL (32-36); Mean Corpuscular Volume 98.7 fL (80-100); Mean Platelet Volume 9.9 fL (7.4-10.4); Monocytes % (auto) 18.9 %; Neutrophils # (auto) 2.66 K/uL (1.4-6.5); Neutrophils % (auto) 62.8 %; Platelet Count 152 K/uL (130-400); RDW Coefficient of Variation 14.2 % (11.5-14.5); RDW Standard Deviation 51.4 fL (36.4-46.3); Red Blood Count 3.99 M/uL (4.7-6.1); White Blood Count 4.24 K/uL (4.8-10.8)
[2018-08-18 08:23] LABS: BUN Creatinine Ratio 15.3 (10-20); Calcium 8.7 mg/dl (8.5-10.1); Creatinine Clr Calc Pharmacy 53.1 ml/min; Est GFR (African American) 74.1; Potassium 4.1 mmol/L (3.5-5.1)
[2018-08-18 08:36] LABS: Influenza B virus by PCR Neg for Influ B (Neg)
--- NOTE | 2018-08-18 08:41 | XRay Report ---
XR chest 2V routine CLINICAL HISTORY: wheezing dyspnea COMPARISON STUDY: 07/26/2017 FINDINGS: The bones soft tissues and hemidiaphragms are normal. The cardiomediastinal silhouette is n ormal. The lungs are clear. The pulmonary vasculature is normal. Mild bibasilar atelectasis considere d chronic. No focal infiltrate. Permanent bipolar cardiac pacer with leads in good position. IMPRESSION: Chronic change. No acute process. Mild bibasilar atelectatic change. The above report was generated using voice recognition software. It may contain grammatical, syntax or spelling errors. Electronically signed by: Rogelio Paris M.D. 08/18/2018 8:40 AM
[2018-08-18 08:44] LABS: Troponin I 0.238 ng/ml (0-0.045)
[2018-08-18] MEDS ORDERED: OSELTAMIVIR PHOSPHATE 75 MG CAP PO STA (08:50)
--- NOTE | 2018-08-18 10:06 | Emergency Department Note ---
Entered by Estella Emanuel acting as a scribe for Ryan Villa History of Present Illness General Chief complaint: Shortness of Breath/Dyspnea Stated complaint: CHEST COLD,SOB Time Seen by Provider: 08/18/18 07:17 Source: patient History of Present Illness Onset (ago): day(s) (last night) Location: chest Maximum Pain Intensity: 5 Quality: + other (SOB) Associated symptoms: + chest pain (when he coughs), + cough (productive) and + other (Positive runny nose, congestion. Negative pain with urination, coughing up blood, recent long travel); no fever/chills and no nausea/vomiting The patient is a 88 year old male who presents to the Emergency Room with complaints of SOB beginning last night. He reports he was sleeping last night when a runny nose, congestion, and a productive cough woke him up. He describes his symptoms as his "chest tearing up" due to his cough and rates it as a 5/10 in severity. He took 3 puffs of albuterol at 0600 but they have not modified his symptoms. Pt has chest pain only when he coughs and denies any fevers, chills, nausea, vomiting, abdominal pain, pain with urination, coughing up blood, recent long travel. He has never been intubated or been to the ICU for his asthma. Home Medications Home Medications Medication Instructions Recorded Confirmed Type albuterol sulfate 2 puff INHALATION QID PRN 06/15/18 08/18/18 History aspirin 81 mg PO DAILY 06/15/18 08/18/18 History atorvastatin 20 mg PO HS 06/15/18 08/18/18 History benazepril 5 mg PO QAM 06/15/18 08/18/18 History finasteride 5 mg PO QAM 06/15/18 08/18/18 History metoprolol tartrate 25 mg PO BID 06/15/18 08/18/18 History omega 0-ilf-mlv-fish oil [Fish Oil] 1 cap PO QAM 06/15/18 08/18/18 History amoxicillin-pot clavulanate 1 tab PO BID #7 tab 06/16/18 08/18/18 Rx [Augmentin] doxycycline hyclate 100 mg PO BID #7 cap 06/16/18 08/18/18 Rx prednisone 40 mg PO DAILY #6 tab 06/16/18 08/18/18 Rx rivaroxaban [Xarelto] 20 mg PO DAILY 08/18/18 08/18/18 History Allergies Allergy/AdvReac Type Severity Reaction Status Date / Time No Known Allergies Allergy Unknown Verified 08/18/18 07:58 Past Med/Surg History Social History Preferred Language: Czech Communication Ability: Effective 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 and A total of 10 systems reviewed and were otherwise negative Physical Exam Vital Signs Vital Signs - 24 hr 08/18/18 07:13 08/18/18 08:02 08/18/18 08:19 Temperature 36.5 C Temperature Source Oral Sepsis Recent Fever Within 48 Hours No Sepsis Action Taken by Nursing No Action Required Pulse Rate 82 Pulse Rate [Left Finger] 73 Respiratory Rate 20 18 Respiratory Effort / Characteristics Non-Labored Non-Labored Spontaneous Respiratory Depth Normal Normal Respiratory Pattern Regular Blood Pressure 183/82 H Blood Pressure [Right Arm] 160/86 H Blood Pressure Mean 115 Blood Pressure Mean [Right Arm] 110 Blood Pressure Position [Right Arm] Lying Pulse Oximetry 98 98 95 Oxygen Delivery Method Room Air Room Air Room Air 08/18/18 09:06 08/18/18 09:34 Temperature Temperature Source Sepsis Recent Fever Within 48 Hours Sepsis Action Taken by Nursing Pulse Rate Pulse Rate [Left Finger] 80 Respiratory Rate 18 Respiratory Effort / Characteristics Non-Labored Spontaneous SOB on Exertion Respiratory Depth Normal Normal Respiratory Pattern Regular Regular Blood Pressure Blood Pressure [Right Arm] 168/72 H Blood Pressure Mean Blood Pressure Mean [Right Arm] 104 Blood Pressure Position [Right Arm] Lying Pulse Oximetry 94 Oxygen Delivery Method Room Air Room Air GENERAL: He is oriented to person, place, and time. He appears well-developed and well-nourished. He does not appear distressed. ____ HENT: Exam performed. Head: Normocephalic and atraumatic. Right Ear: External ear normal. No mastoid tenderness. Left Ear: External ear normal. No mastoid tenderness. Mouth/Throat: The oropharynx is clear and moist. No trismus in the jaw. No dental abscesses or uvula swelling. No oropharyngeal exudate or tonsillar abscesses. ____ EYES: Conjunctivae and EOM are normal. Pupils are equal, round, and reactive to light. Right eye exhibits no discharge. Left eye exhibits no discharge. No scleral icterus. ____ NECK: Normal range of motion. Neck supple. No JVD present. No spinous process tenderness present. No carotid bruit present. No rigidity. No tracheal deviation and normal range of motion present. No Brudzinski's sign and no Kernig's sign noted. ____ CV: Normal rate, regular rhythm, normal heart sounds and intact distal pulses. There is no peripheral edema. Palpable radial pulses bue. ____ PULM/CHEST: Effort normal and breath sounds normal. No respiratory distress. No stridor. He has bilateral expiratory wheezes. He has no rales. Chest Wall: He exhibits no tenderness. ____ ABD: The abdomen is soft. Bowel sounds are normal. He has no distension. No mass is present. There is no tenderness. There is no rebound, no guarding, no Paulson's sign and no tenderness at McBurney's point. Rovsig negative MUSC/SKEL: Normal range of motion. There is no tenderness or deformity. 2+ pitting edema BLE LYMPH: No cervical adenopathy. ____ NEURO: He is alert and oriented to person, place, and time. He has normal strength. No cranial nerve deficit or sensory deficit. Coordination and gait normal. GCS eye subscore is 4. GCS verbal subscore is 5. GCS motor subscore is 6. cerbellar tests wnl. ____ SKIN: Skin is warm and dry. He is not diaphoretic. ____ PSYCH: He has a normal mood and affect. His behavior is normal. Judgment and thought content normal. ____ Course 0739: Past medical records reviewed. The patient was evaluated in room B9 , and a complete history and physical examination were performed. 0842: I checked on the patient at this time. Vital signs stable. He feels better after the first Duoneb. Repeat lung exam shows he is still having expiratory wheezes. He will receive another Duoneb treatment. 0855: Vital signs stable. Pt not reporting any chest pain. Pt is influenza A positive. Labs show positive troponin of 0.238. This is significantly elevated from his previous. Creatinine wnl. Bedside ultrasound showed trace pericardial effusion and no tamponade. It is thought that the elevated troponin could be due to the influenza infection and possible myocarditis. Pt denies any chest pain. Will hold off on anticoagulation. 0900: I reviewed the patient's case with MARGE Gonzalez [facility] Hospitalist. Dr. Stewart, [facility] Hospitalist will evaluate the patient for further management. Consultations Consultation #1: I reviewed the patient's case with MARGE Gonzalez [facility] Hospitalist. Dr. Stewart, [facility] Hospitalist will evaluate the patient for further management. Time: 09:00 Administered Medications Discontinued Medications Albuterol (Duoneb) 3 ml NEB NOW STA Stop: 08/18/18 07:41 Last Admin: 08/18/18 08:04 Dose: 3 ml Documented by: [id number] Albuterol (Duoneb) 3 ml NEB NOW STA Stop: 08/18/18 08:42 Last Admin: 08/18/18 08:45 Dose: 3 ml Documented by: [id number] Methylprednisolone (Solumedrol) 125 mg IV NOW STA Stop: 08/18/18 07:41 Last Admin: 08/18/18 08:04 Dose: 125 mg Documented by: [id number] Oseltamivir Phosphate (Tamiflu) 75 mg PO NOW STA Stop: 08/18/18 08:51 Last Admin: 08/18/18 08:54 Dose: 75 mg Documented by: [id number] Medical Decision Making Medical Records Attestation: I reviewed the patient's medical records. Home Medications Current Medication List: was personally reviewed by me Laboratory Data Attestation: I reviewed the patient's lab results. Result diagrams: 08/18/18 07:55 08/18/18 07:55 Lab Results 08/18/18 08/18/18 08/18/18 Range/Units 07:55 07:55 07:55 WBC 4.24 L (4.8-10.8) K/uL RBC 3.99 L (4.7-6.1) M/uL Hgb 12.9 L (14.0-18.0) g/dL Hct 39.4 L (42-52) % MCV 98.7 (80-100) fL MCH 32.3 (25-34) pg MCHC 32.7 (32-36) g/dL RDW Std Deviation 51.4 H (36.4-46.3) fL RDW Coeff of Yuliya 14.2 (11.5-14.5) % Plt Count 152 (130-400) K/uL MPV 9.9 (7.4-10.4) fL Immature Gran % (Auto) 0.2 % Neut % (Auto) 62.8 % Lymph % (Auto) 17.0 % Wythe % (Auto) 18.9 % Eos % (Auto) 0.9 % Baso % (Auto) 0.2 % Immature Gran # (Auto) 0.01 (0.00-0.02) K/uL Neut # (Auto) 2.66 (1.4-6.5) K/uL Lymph # (Auto) 0.72 L (1.2-3.4) K/uL Wythe # (Auto) 0.80 H (0.11-0.59) K/uL Eos # (Auto) 0.04 (0-0.5) K/uL Baso # (Auto) 0.01 (0-0.2) K/uL Sodium 136 (136-145) mmol/L Potassium 4.1 (3.5-5.1) mmol/L Chloride 103 (98-107) mmol/L Carbon Dioxide 25 (21-32) mmol/L Anion Gap 7.0 (3-11) BUN 16 (7-18) mg/dl Creatinine 1.05 (0.6-1.4) mg/dl Est Cr Clr Drug Dosing 53.1 ml/min Est GFR ( Amer) 74.1 Est GFR (Non-Af Amer) 64.0 BUN/Creatinine Ratio 15.3 (10-20) Glucose 102 H (70-99) mg/dl Calcium 8.7 (8.5-10.1) mg/dl Troponin I 0.238 H* (0-0.045) ng/ml NT-Pro-B Natriuret Pep 1512 (0-1800) pg/ml Influenza Type A (PCR) Pos for Influ A A* (Neg) Influenza Type B (PCR) Neg for Influ B (Neg) Imaging Data Radiologist's Impression: Radiology results as stated below per my review and the radiologist's interpretation: XR chest 2V routine CLINICAL HISTORY: wheezing dyspnea COMPARISON STUDY: 07/26/2017 FINDINGS: The bones soft tissues and hemidiaphragms are normal. The cardiomediastinal silhouette is normal. The lungs are clear. The pulmonary vasculature is normal. Mild bibasilar atelectasis considered chronic. No focal infiltrate. Permanent bipolar cardiac pacer with leads in good position. IMPRESSION: Chronic change. No acute process. Mild bibasilar atelectatic change. The above report was generated using voice recognition software. It may contain grammatical, syntax or spelling errors. Electronically signed by: Rogelio Paris M.D. 08/18/2018 8:40 AM ECG Data Attestation: I personally reviewed and interpreted this ECG as follows: Indication: SOB/dyspnea Rate (beats per minute): 76 Rhythm: other (paced rhythm ) Findings: + other (NM interval 242, QRS 112, QRS 468, baseline wander due to artifact); no ST depression and no ST elevation Blood Pressure Blood Pressure Findings: Elevated blood pressure Blood Pressure Disposition: further management by hospitalist SUSAN Narrative 0739: Past medical records reviewed. The patient was evaluated in room B9 , and a complete history and physical examination were performed. 0842: I checked on the patient at this time. Vital signs stable. He feels better after the first Duoneb. Repeat lung exam shows he is still having expiratory wheezes. He will receive another Duoneb treatment. 0855: Vital signs stable. Pt not reporting any chest pain. Pt is influenza A positive. Labs show positive troponin of 0.238. This is significantly elevated from his previous. Creatinine wnl. Bedside ultrasound showed trace pericardial effusion and no tamponade. It is thought that the elevated troponin could be due to the influenza infection and possible myocarditis. Pt denies any chest pain. Will hold off on anticoagulation. 0900: I reviewed the patient's case with MARGE Gonzalez [facility] Hospitalist. Dr. Stewart, [facility] Hospitalist will evaluate the patient for further management. Impression & Plan Influenza A, Elevated troponin Discharge Plan Visit Data Chief Complaint: Shortness of Breath/Dyspnea Stated Complaint: CHEST COLD,SOB ED Provider: Ryan Villa ED Midlevel Provider: Shruti Talley Discharge Problem: Influenza A, Elevated troponin Patient Disposition: Being Evaluated by Hospitalist Forms Stand Alone Forms: My [facility] Prescriptions Prescriptions: No Action atorvastatin 20 mg tablet 20 mg PO HS RF: 0 benazepril 5 mg tablet 5 mg PO QAM RF: 0 aspirin 81 mg Tablet,Delayed Release (Dr/Ec) 81 mg PO DAILY RF: 0 albuterol sulfate 90 mcg/actuation HFA aerosol inhaler 2 puff Inhalation QID PRN (Reason: Shortness Of Breath Or Wheezing) RF: 0 finasteride 5 mg tablet 5 mg PO QAM RF: 0 metoprolol tartrate 25 mg tablet 25 mg PO BID RF: 0 omega 4-lck-lnn-fish oil [Fish Oil] 1,000 mg (120 mg-180 mg) Capsule 1 cap PO QAM RF: 0 doxycycline hyclate 100 mg capsule 100 mg PO BID Qty: 7 RF: 0 prednisone 20 mg tablet 40 mg PO DAILY Qty: 6 RF: 0 amoxicillin-pot clavulanate [Augmentin] 875-125 mg tablet 1 tab PO BID Qty: 7 RF: 0 Xarelto 20 mg tablet 20 mg PO DAILY RF: 0 Referrals Referrals: Aroldo Lomeli MD [Primary Care Provider] - The scribe's documentation has been prepared under my direction and personally reviewed by me in its entirety. I confirm that the note above accurately reflects all work, treatment, procedures, and medical decision making performed by me.
--- NOTE | 2018-08-18 10:41 | History & Physical Report ---
Date of Service August 18, 2018 Assessment & Plan (1) Influenza A: Patient will be admitted on isolation droplet precautions. Will initiate Tamiflu. Supportive management. P.O. intake is stable. Encourage fluids. Tylenol will be ordered for pain and fever. (2) Elevated troponin: Patient will be admitted to telemetry for elevated troponins. He has a history of sick sinus syndrome, pacemaker placement, and coronary artery disease. Cardiac markers will be performed. Echo today showing trace pericardial effusion. EKG will be repeated tomorrow morning. He has been ordered sublingual nitroglycerin as needed. Morphine as needed for chest pain. (3) Asthma: Patient with SOB despite Duoneb and methylprednisolone, however he is not hypoxic nor in any current respiratory distress. Will order Duonebs q4hrs and prednisone 40mg daily. (4) Rebound tenderness of central abdomen: ? developing cirrhosis on ultrasound from March 2018, + hx of renal stones Will order a CT of the abd/pelvis with and without contrast. Will order LFTS, amylase, and lipase. (5) Paroxysmal A-fib: Rate controlled. Continue metoprolol 25 mg by mouth twice daily. Continue Xarelto. (6) Hypertension: Systolic of 168 on admission. Continue benazepril 5 mg by mouth every morning. Will also add hydralazine 10 mg by mouth every 6 hours as needed for systolic pressures greater than 160. (7) HLD (hyperlipidemia): Continue atorvastatin. (8) DM II (diabetes mellitus, type II), controlled: Patient says he is a prediabetic, and is not currently treated for diabetes. Last Hgb A1c was 6.5 in March 2018. Will repeat. Will also order BSGs ACHS. (9) Enlarged prostate: Pt denies urinary symptoms today. Continue finasteride. (10) DVT prophylaxis: The pt is already on Xarelto. Will order SCDs. (11) Lower extremity edema: Non-pitting lower extremity edema noted today. Pro BNP noted to be normal. Will order knee high CIARA hose. History of Present Illness Chief Complaint: Asthma with cold symptoms Primary Care Provider: Aroldo Lomeli MD He continues to have shortness of breath despite a DuoNeb [id number] male with multiple past medical history of sick sinus syndrome, coronary artery disease, pacemaker placement, proximal atrial fibrillation, hypertension, hyperlipidemia, and asthma presents today with complaints of worsening asthma and cold symptoms times 2 days. Patient was recently admitted here in May for pneumonia. Patient denies fever or chills at home. He does complain of a productive cough with kirkpatrick sputum. He also complains of shortness of breath, but denies chest pain. He uses Flovent and albuterol at home for his asthma. Chest x-ray on admission is noted to be negative for acute process. He continues to have some shortness of breath despite a DuoNeb treatment and 125 mg of IV methylprednisolone. Patient was also noted to have help elevated troponin on admission of 0.238. He did have an echo which showed trace pericardial effusion. EKG shows atrial paced rhythm with prolonged AV conduction, left anterior fascicular block, and septal infarct of undetermined age. Patient is currently on Xarelto for A. fib. Patient had some lower extremity edema for the last several days. BNP today is noted to be normal. Lastly, he complains of some mild abdominal tenderness superior to the umbilicus. He denies any nausea or vomiting. His last bowel movement was this morning. He denies symptoms of reflux. The patient does have a history of renal stone in the past with ureteral stent placement. He also has a history of ERCP and cholecystectomy. Patient did have a liver ultrasound in March 2018 which showed possible early changes of cirrhosis. Allergies Allergy/AdvReac Type Severity Reaction Status Date / Time No Known Allergies Allergy Unknown Verified 08/18/18 07:58 Home Medications Home Medications Medication Instructions Recorded Confirmed Type albuterol sulfate 2 puff INHALATION QID PRN 06/15/18 08/18/18 History aspirin 81 mg PO DAILY 06/15/18 08/18/18 History atorvastatin 20 mg PO HS 06/15/18 08/18/18 History benazepril 5 mg PO QAM 06/15/18 08/18/18 History finasteride 5 mg PO QAM 06/15/18 08/18/18 History metoprolol tartrate 25 mg PO BID 06/15/18 08/18/18 History omega 0-krf-jup-fish oil [Fish Oil] 1 cap PO QAM 06/15/18 08/18/18 History amoxicillin-pot clavulanate 1 tab PO BID #7 tab 06/16/18 08/18/18 Rx [Augmentin] doxycycline hyclate 100 mg PO BID #7 cap 06/16/18 08/18/18 Rx prednisone 40 mg PO DAILY #6 tab 06/16/18 08/18/18 Rx rivaroxaban [Xarelto] 20 mg PO DAILY 08/18/18 08/18/18 History Past Med/Surg History Social History Preferred Language: Greenlandic Communication Ability: Effective Tooler Required: No Beliefs That Will Affect Care: None marital status: Current Living Situation: Spouse Other Information That Helps Us Care for You: No Feels Safe at Home: Yes Safety Concerns: Feels Safe At This Time Smoking Status: Never smoker Hx Alcohol Use: No Hx Substance Use: No Review of Systems Constitutional: no fever and no chills Eyes: no worsening vision Ear, Nose, Mouth, Throat: no dizziness Respiratory: + cough, + chest congestion and + sputum production (kirkpatrick sputum ) Cardiovascular: no chest pain Gastrointestinal: + abdominal pain (central abdominal tenderness superior to the umbilicus ); no nausea, no vomiting, no change in stools and no constipation Genitourinary (Male): no dysuria and no hematuria Psychiatric: no confusion Physical Exam Vital Signs (Past 24 Hours): Last Vital Signs Temp 36.5 C 08/18/18 07:13 Pulse 80 08/18/18 09:06 Resp 18 08/18/18 09:06 BP 168/72 H 08/18/18 09:06 Pulse Ox 94 08/18/18 09:06 Patient is afebrile. He is hypertensive at 168/72, but vital signs are otherwise stable. Constitutional: + overweight; no acute distress Eyes: PERRL ENMT: Ears: no TM abnormality Nose: no turbinate abnormality and no nasal discharge Mouth: no oropharynx abnormality Neck: trachea midline, no thyromegaly normal visual inspection Thyroid: normal thyroid Respiratory: no respiratory distress Auscultation: + crackles and + rhonchi Cardiovascular: Rate/Rhythm: regular rate and regular rhythm Vessels: no JVD Gastrointestinal (Abdomen): Inspection/Auscultation: normal bowel sounds Percussion/Palpation: + abdomen tender (+ rebound tenderness midline, and superior to the umbilicus ) and abdomen soft Psychiatric: A+Ox3, euthymic affect Code Status & VTE Plan Code Status Level 1 Full Code VTE Prophylaxis Plan VTE Prophylaxis will be ordered: Yes Supervising Physician Co-Signing Physician Notes Patient seen and examined, discussed with physician human resources executive assistant about patient condition and care plan, agree current care plan 88-year-old white male admitted because of flu and elevated troponin Subjective: No chest pain when I examining him, mild. No muscle ache and generalized weakness, fever chills, Review of Systems Constitutional: Mild weakness, or fatigue Respiratory: Mild dry cough, no dyspnea on exertion Cardiac: No chest pain, No orthopnea, No PND, Abdomen: No pain, No nausea, No vomiting, No diarrhea, No constipation, No GI bleeding Musculoskeletal: No joint pain, No muscle pain, No swelling, No calf pain, No problem reported : No dysuria, No urinary frequency, No incontinence, No hematuria Neurologic: No paralysis, No weakness, No numbness/tingling, No vertigo, No balance problems Psychiatric: No depression symptoms, No anhedonism, No anxiety, No insomnia, No substance abuse Skin: No rash, No itch, No new/changing skin lesions, No color change, No bleeding Objective: General Appearance: WD/WN, no apparent distress, Eyes: normal inspection, PERRL, EOMI, sclerae normal ENT: normal ENT inspection, hearing grossly normal, pharynx normal Neck: supple, no adenopathy, thyroid normal, no JVD, no carotid bruits, trachea midline Respiratory/Chest: chest non-tender, normal breath sounds, no respiratory distress, no accessory muscle use, breath sounds, rales, wheezing Cardiovascular: regular rate, rhythm, no JVD, no murmur Abdomen: Mild tender in the mid abdomen when depressed , normal bowel sounds, soft, no organomegaly, Extremities: normal range of motion, non-tender, normal inspection, no pedal edema, no calf tenderness, normal capillary refill, pelvis stable, joint has no limited range of motion, capillary refill is normal, no cyanosis clubbing Neurologic/Psychiatric: mortar man II-XII nml as tested, no motor/sensory deficits, alert, normal mood/affect, oriented x 3 Laboratory Results - last 24 hr 08/18/18 08/18/18 08/18/18 07:55 07:55 07:55 WBC 4.24 L RBC 3.99 L Hgb 12.9 L Hct 39.4 L MCV 98.7 MCH 32.3 MCHC 32.7 RDW Std Deviation 51.4 H RDW Coeff of Yuliya 14.2 Plt Count 152 MPV 9.9 Immature Gran % (Auto) 0.2 Neut % (Auto) 62.8 Lymph % (Auto) 17.0 Ransom % (Auto) 18.9 Eos % (Auto) 0.9 Baso % (Auto) 0.2 Immature Gran # (Auto) 0.01 Neut # (Auto) 2.66 Lymph # (Auto) 0.72 L Ransom # (Auto) 0.80 H Eos # (Auto) 0.04 Baso # (Auto) 0.01 Sodium 136 Potassium 4.1 Chloride 103 Carbon Dioxide 25 Anion Gap 7.0 BUN 16 Creatinine 1.05 Est Cr Clr Drug Dosing 53.1 Est GFR ( Amer) 74.1 Est GFR (Non-Af Amer) 64.0 BUN/Creatinine Ratio 15.3 Glucose 102 H Calcium 8.7 Total Bilirubin Direct Bilirubin AST ALT Alkaline Phosphatase Troponin I 0.238 H* NT-Pro-B Natriuret Pep 1512 Total Protein Albumin Amylase Lipase Influenza Type A (PCR) Pos for Influ A A* Influenza Type B (PCR) Neg for Influ B 08/18/18 07:55 WBC RBC Hgb Hct MCV MCH MCHC RDW Std Deviation RDW Coeff of Yuliya Plt Count MPV Immature Gran % (Auto) Neut % (Auto) Lymph % (Auto) [place]ansom % (Auto) Eos % (Auto) Baso % (Auto) Immature Gran # (Auto) Neut # (Auto) Lymph # (Auto) Ransom # (Auto) Eos # (Auto) Baso # (Auto) Sodium Potassium Chloride Carbon Dioxide Anion Gap BUN Creatinine Est Cr Clr Drug Dosing Est GFR ( Amer) Est GFR (Non-Af Amer) BUN/Creatinine Ratio Glucose Calcium Total Bilirubin 1.1 H Direct Bilirubin 0.3 H AST 35 ALT 31 Alkaline Phosphatase 157 H Troponin I NT-Pro-B Natriuret Pep Total Protein 7.0 Albumin 3.3 L Amylase 43 Lipase 196 Influenza Type A (PCR) Influenza Type B (PCR) Assessment and plan: 88-year-old white male admitted because of influenza A continue Tamiflu, supportive care plenty fluid intake, Tylenol as needed for pain or fever, Minimal elevated troponin at 0.23, no EKG changes, patient has no more chest pain, likely demanding ischemia which is from A. fib with rapid ventricular response cont telemetry for elevated troponins, cardiology consult, Possible asthma exacerbation with hx of Asthma: has SOB despite Duoneb and methylprednisolone, cont Duonebs q4hrs and prednisone 40mg daily. Rebound tenderness of central abdomen: Follow-up abdominal CT and labs, Paroxysmal A-fib: Rate controlled. Continue metoprolol 25 mg by mouth twice daily. Continue Xarelto. Hypertension: Systolic of 168 on admission. Continue benazepril 5 mg by mouth every morning., cont hydralazine 10 mg by mouth every 6 hours as needed for systolic pressures greater than 160. Can add beta-anum Dyslipidemia hypertension BPH, continue with current medication Discussed with patient and family in bedside about condition, Answered All Questions
[2018-08-18] MEDS ORDERED: HydrALAZINE 10 MG TAB PO PRN (10:59)
[2018-08-18] MEDS ORDERED: MoRPHine SULFATE 4 MG/ML 1 ML CARP\\VIAL IV PRN (10:59)
[2018-08-18] MEDS ORDERED: ACETAMINOPHEN 325 MG TAB PO PRN (10:59)
[2018-08-18] MEDS ORDERED: OSELTAMIVIR PHOSPHATE 75 MG CAP PO SCH (10:59)
[2018-08-18] MEDS ORDERED: NITROGLYCERIN SL 0.4 MG/TAB TAB SL PRN (10:59)
[2018-08-18] MEDS ORDERED: METOPROLOL TARTRATE 1 MG/ML VIAL IV PRN (11:25)
[2018-08-18 11:56] LABS: Albumin Level 3.3 gm/dl (3.4-5.0); Bilirubin Direct 0.3 mg/dl (0-0.2); Bilirubin,Total 1.1 mg/dl (0.2-1)
[2018-08-18] MEDS ORDERED: IOVERSOL 100ml IV PRN (12:55)
[2018-08-18] MEDS ORDERED: PHARMACY GLYCEMIC MGMT CONSULT PRN (12:57)
--- NOTE | 2018-08-18 13:12 | CT Scan Report ---
CT abd pelvis oral and IV con CT DOSE: 894.93 mGycm HISTORY: Pain rebound tenderness TECHNIQUE: Multiaxial CT images of the abdomen and pelvis were performed following the use of intrave nous and oral contrast. A dose lowering technique was utilized adhering to the principles of ALARA. COMPARISON STUDY: 07/18/2014 FINDINGS: Chronic bibasilar parenchymal infiltrative change. Within the biliary ductal system unchanged in the prior study. This appears to be postoperative. Prominence of the common bile duct unaltered from the prior study. Kidneys demonstrate mild fullness of the renal collecting systems and ureters bilaterally as compared to the prior study. No evidence f or a true obstructing lesion is present with this potentially secondary to a component of bladder obs truction. Nonobstructive bowel pattern. IMPRESSION: 1. Interval development of mild bilateral hydroureteronephrosis. 2. This potentially is secondary to a component of bladder outlet obstruction. 3. Nonobstructive bowel pattern. 4. Stable postoperative appearance to the biliary ductal system. 5. Chronic bibasilar parenchymal infiltrative change. The above report was generated using voice recognition software. It may contain grammatical, syntax or spelling errors. Electronically signed by: Rogelio Paris M.D. 08/18/2018 1:10 PM
[2018-08-18] MEDS ORDERED: GLUCAGON FOR INJ 1 MG VIAL SQ PRN (13:15)
[2018-08-18] MEDS ORDERED: GLUCOSE 10 TABS/TUBE PO PRN (13:15)
[2018-08-18] MEDS ORDERED: DEXTROSE 50% 50 ML SYRINGE IV PRN (13:15)
[2018-08-18] MEDS ORDERED: GLUCOSE 40% GEL 15 GM TUBE PO PRN (13:15)
[2018-08-18] MEDS ORDERED: CARBOHYDRATES FOR HYPOGLYCEMIA PO PRN (13:15)
[2018-08-18] MEDS: ALBUT/IPRATROP 3MG/0.5MG NEB 3 ML VIAL NEB SCH ×4 (14:58→23:10)
[2018-08-18] MEDS: INSULIN ASPART 100 UNITS/ML 3 ML PEN SQ SCH ×3 (15:06→21:40)
[2018-08-18] MEDS ORDERED: LOPERAMIDE HCL 2 MG CAP PO PRN (15:15)
[2018-08-18] MEDS ORDERED: ATORVASTATIN 20 MG TAB PO SCH (21:00)
[2018-08-18] MEDS: METOPROLOL TARTRATE 25 MG TAB PO SCH (21:33)
[2018-08-18] MEDS: OSELTAMIVIR PHOSPHATE SUSP 30 MG/5 ML UDP PO SCH (21:42)
[2018-08-19] MEDS ORDERED: INSULIN ASPART 100 UNITS/ML 3 ML PEN SQ SCH
[2018-08-19] MEDS: ALBUT/IPRATROP 3MG/0.5MG NEB 3 ML VIAL NEB SCH ×3 (03:01→11:08)
[2018-08-19 04:33] LABS: Hemoglobin 12.7 g/dL (14.0-18.0); Immature Granulocytes # (auto) 0.01 K/uL (0.00-0.02); Immature Granulocytes % (auto) 0.2 %; Lymphocytes % (auto) 13.8 %; Mean Corpuscular Hgb Conc 33.4 g/dL (32-36); Mean Corpuscular Volume 97.2 fL (80-100); Monocytes # (auto) 1.05 K/uL (0.11-0.59); Monocytes % (auto) 18.1 %; Neutrophils # (auto) 3.94 K/uL (1.4-6.5); Neutrophils % (auto) 67.9 %; Platelet Count 163 K/uL (130-400); RDW Coefficient of Variation 14.2 % (11.5-14.5); RDW Standard Deviation 50.8 fL (36.4-46.3); Red Blood Count 3.91 M/uL (4.7-6.1)
[2018-08-19 04:49] LABS: BUN Creatinine Ratio 19.4 (10-20); Calcium 8.3 mg/dl (8.5-10.1); Est GFR (African American) 69.3; Est GFR (Non-African American) 59.8; Magnesium 1.9 mg/dl (1.8-2.4); Potassium 4.6 mmol/L (3.5-5.1)
[2018-08-19 05:15] LABS: Phosphorus 3.3 mg/dl (2.5-4.9); Troponin I 0.204 ng/ml (0-0.045)
[2018-08-19] MEDS: METOPROLOL TARTRATE 25 MG TAB PO SCH (08:01)
[2018-08-19] MEDS: INSULIN ASPART 100 UNITS/ML 3 ML PEN SQ SCH ×2 (08:03→12:25)
[2018-08-19] MEDS: OSELTAMIVIR PHOSPHATE SUSP 30 MG/5 ML UDP PO SCH (08:09)
[2018-08-19] MEDS ORDERED: NovoLIN-N (NPH) PER UNIT CHARGE SQ ONE (08:30)
[2018-08-19] MEDS ORDERED: ENALAPRIL MALEATE 5 MG TAB PO SCH (09:00)
[2018-08-19] MEDS ORDERED: FINASTERIDE 5 MG TAB PO SCH (09:00)
[2018-08-19] MEDS ORDERED: RIVAROXABAN 20 MG TAB PO SCH (09:00)
[2018-08-19] MEDS ORDERED: predniSONE 20 MG TAB PO SCH (09:00)
[2018-08-19] MEDS ORDERED: ASPIRIN 81 MG ECTAB PO SCH (09:00)
--- NOTE | 2018-08-19 14:07 | Cardiology Consultation ---
Date of Consultation August 19, 2018 Assessment & Plan (1) Elevated troponin: Mildly elevated troponin of no major clinical significance. Suspect this is related to his presenting illness. No evidence of myocardial ischemia nor complaints of angina pectoris. No further cardiac workup indicated at this time. (2) CAD (coronary artery disease): Nonobstructive coronary artery disease noted time of cardiac catheterization in October 2013. Continue medical management. (3) Paroxysmal A-fib: The patient is currently in sinus rhythm. He is tolerating rate control and long-term anticoagulation without difficulty. (4) Cardiac pacemaker: The patient had a DDD pacemaker placed back in March 2012 because of sinus node dysfunction. Continues close follow-up with Dr. Herrera. History of Present Illness Attending Physician: Raymond Stewart MD, PhD, [facility] History of Present Illness Mr. Dempsey is an 88-year-old male admitted yesterday with influenza A. His troponin was mildly elevated and therefore, this consultation was ordered. Of note, patient typically follows with Dr. Herrera in the outpatient setting. The patient was in his usual state of health until 48 hours prior to presentation. He began to note progressive shortness of breath, a nonproductive cough, and significant fatigue. On presentation to the emergency room, his influenza swab was positive. Troponins were also mildly elevated as noted above. The patient has not experienced any exertional chest pain. He was diagnosed with nonobstructive coronary artery disease at time of her cardiac catheterization in October 2013. He had a 40% 1st diagonal stenosis, a 30% mid LCX stenosis, and a 40% mid RCA stenosis. The patient also has a history of sinus node dysfunction. He had a permanent pacemaker placed in March 2012. He has done well from a cardiac perspective s joseph that time. Currently, patient is resting comfortably in bed without complaints. Past medical and surgical history 1. Nonobstructive CAD-October 2013-see above 2. Hypertension 3. Hypercholesterolemia 4. Paroxysmal atrial fibrillation 5. SA node dysfunction 6. DDD pacemaker-March 2012 7. Diabetes mellitus 8. Emphysema 9. Gout 10. BPH 11. 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 Hearing deficit 14. Carotid endarterectomy 15. Interocular lens implants 16. Cholecystectomy 17. Bilateral TKR 18. Inguinal hernia repair 19. Hemorrhoidectomy Social history and lives with his No tobacco Social alcohol Family history Noncontributory Review of systems A 10 point review of systems was negative except for that described above. Allergies Allergy/AdvReac Type Severity Reaction Status Date / Time No Known Allergies Allergy Unknown Verified 08/18/18 07:58 Home Medications Home Medications Medication Instructions Recorded Confirmed Type albuterol sulfate 2 puff INHALATION QID PRN 06/15/18 08/18/18 History aspirin 81 mg PO DAILY 06/15/18 08/18/18 History atorvastatin 20 mg PO HS 06/15/18 08/18/18 History benazepril 5 mg PO QAM 06/15/18 08/18/18 History finasteride 5 mg PO QAM 06/15/18 08/18/18 History metoprolol tartrate 25 mg PO BID 06/15/18 08/18/18 History omega 2-muq-lln-fish oil [Fish Oil] 1 cap PO QAM 06/15/18 08/18/18 History amoxicillin-pot clavulanate 1 tab PO BID #7 tab 06/16/18 08/18/18 Rx [Augmentin] doxycycline hyclate 100 mg PO BID #7 cap 06/16/18 08/18/18 Rx prednisone 40 mg PO DAILY #6 tab 06/16/18 08/18/18 Rx Xarelto 20 mg PO DAILY 08/18/18 08/18/18 History oseltamivir [Tamiflu] 5 ml PO BID 5 Days ml 08/19/18 Rx Patient History Social History Communication Ability: Effective Beliefs That Will Affect Care: None marital status: Current Living Situation: Spouse Other Information That Helps Us Care for You: No Feels Safe at Home: Yes Safety Concerns: Feels Safe At This Time Smoking Status: Never smoker Hx Alcohol Use: No Hx Substance Use: No Physical Exam Vital Signs (Past 24 Hours): Last Vital Signs Temp 36.5 C 08/19/18 12:54 Pulse 76 08/19/18 12:54 Resp 18 08/19/18 12:54 BP 154/78 H 08/19/18 12:54 Pulse Ox 92 08/19/18 12:54 Physical Exam: In general this is a well-developed well-nourished white male in no acute distress. HEENT exam is negative. Neck is supple with full carotid upstrokes. There are no carotid bruits. Jugular venous pressure is flat at 90. There is no thyromegaly. Cardiovascular exam reveals a regular rhythm with a normal S1 and S2. No S3, S4, or murmurs are noted. Lungs are clear without rales, rhonchi, or wheezes. Abdomen is soft and nontender without bruits. Extremities reveal intact radial artery and posterior tibial pulses bilaterally. There is no peripheral edema. Results & Data Laboratory Results CBC notes a hemoglobin of 12.7, hematocrit 38.0, white count 5.8, and platelet count [id number]. Electrolytes notice a sodium of 137, potassium 4.6, chloride 106, bicarb 25, BUN 22, creatinine 1.1, glucose 145. Initial troponin was 0.238 with follow-up values of 0.133, 0.183, 0.204, and 0.18. BNP was normal at 1512. Diagnostic Findings EKG notes normal sinus rhythm and an incomplete right bundle-branch block along with a left axis deviation. monitoring manager noted a 6 beat run of ventricular tachycardia. Chest x-ray shows no acute disease.
--- NOTE | 2018-08-19 15:04 | Discharge Summary ---
Date of Service August 19, 2018 Admission HPI Per Admitting Provider He continues to have shortness of breath despite a DuoNeb [id number] male with multiple past medical history of sick sinus syndrome, coronary artery disease, pacemaker placement, proximal atrial fibrillation, hypertension, hyperlipidemia, and asthma presents today with complaints of worsening asthma and cold symptoms times 2 days. Patient was recently admitted here in May for pneumonia. Patient denies fever or chills at home. He does complain of a productive cough with kirkpatrick sputum. He also complains of shortness of breath, but denies chest pain. He uses Flovent and albuterol at home for his asthma. Chest x-ray on admission is noted to be negative for acute process. He continues to have some shortness of breath despite a DuoNeb treatment and 125 mg of IV methylprednisolone. Patient was also noted to have help elevated troponin on admission of 0.238. He did have an echo which showed trace pericardial effusion. EKG shows atrial paced rhythm with prolonged AV conduction, left anterior fascicular block, and septal infarct of undetermined age. Patient is currently on Xarelto for A. fib. Patient had some lower extremity edema for the last several days. BNP today is noted to be normal. Lastly, he complains of some mild abdominal tenderness superior to the umbilicus. He denies any nausea or vomiting. His last bowel movement was this morning. He denies symptoms of reflux. The patient does have a history of renal stone in the past with ureteral stent placement. He also has a history of ERCP and cholecystectomy. Patient did have a liver ultrasound in March 2018 which showed possible early changes of cirrhosis. Principal Diagnosis no Discharge Data Allergies Allergy/AdvReac Type Severity Reaction Status Date / Time No Known Allergies Allergy Unknown Verified 08/18/18 07:58 Consultations 08/18/18 09:07 ED Decision to Admit Stat 08/18/18 10:59 Consult Case Management - Discharge Planning Routine 08/18/18 11:26 Consult Cardiology Routine Ordered Studies 08/18/18 10:16 CT abd pelvis oral and IV con Stat Hospital Course (1) Influenza A: (2) Elevated troponin: (3) Asthma: (4) Rebound tenderness of central abdomen: (5) Paroxysmal A-fib: (6) Hypertension: (7) HLD (hyperlipidemia): (8) DM II (diabetes mellitus, type II), controlled: (9) Enlarged prostate: (10) DVT prophylaxis: (11) Lower extremity edema: 88-year-old white male admitted on August 18, 2018 because of flu and Elevated troponin: Influenza A, continue Tamiflu renal dose, and symptom treatment, patient has no other complaint, recommend to complete 5 days of Tamiflu treatment Mildly elevated troponin patient has no chest pain, [facility] Director saw patient, Suspect this is related to his presenting illness. No evidence of myocardial ischemia , No further cardiac workup indicated at this time. hx of CAD (coronary artery disease): Nonobstructive coronary artery disease noted time of cardiac catheterization in October 2013. Continue medical management. Paroxysmal A-fib: tolerating rate control and long-term anticoagulation without difficulty. Cardiac pacemaker: had a DDD pacemaker placed back in March 2012 because of sinus node dysfunction. Continues close follow-up with Dr. Herrera. History of asthma stable, diabetic stable, BPH with mild bilateral hydronephrosis, recommend follow-up with PCP Subjective upon discharge; No fever chills no chest pain, no shortness of breath, no nausea vomiting ab dominal pain diarrhea constipation, review of systems negative Objective at discharge: General Appearance: WD/WN, no apparent distress, Eyes: normal inspection, PERRL, EOMI, sclerae normal ENT: normal ENT inspection, hearing grossly normal, pharynx normal Neck: supple, no adenopathy, thyroid normal, no JVD, no carotid bruits, trachea midline Respiratory/Chest: chest non-tender, normal breath sounds, no respiratory distress, Cardiovascular: regular rate, rhythm, no JVD, no murmur Abdomen: normal bowel sounds, non tender, soft, no organomegaly, Extremities: normal range of motion, non-tender, normal inspection, no pedal edema, no calf tenderness, normal capillary refill, Neurologic/Psychiatric: shrimp picker II-XII nml as tested, no motor/sensory deficits, alert, normal mood/affect, oriented x 3 Skin: normal color, warm/dry, no rash Lymphatic: no adenopathy Lab data upon discharge: Laboratory Results - last 24 hr 08/18/18 08/18/18 08/18/18 16:11 16:15 20:32 WBC RBC Hgb Hct MCV MCH MCHC RDW Std Deviation RDW Coeff of Yuliya Plt Count MPV Immature Gran % (Auto) Neut % (Auto) Lymph % (Auto) [place] % (Auto) Eos % (Auto) Baso % (Auto) Immature Gran # (Auto) Neut # (Auto) Lymph # (Auto) [place] # (Auto) Eos # (Auto) Baso # (Auto) Sodium Potassium Chloride Carbon Dioxide Anion Gap BUN Creatinine Est Cr Clr Drug Dosing Est GFR ( Amer) Est GFR (Non-Af Amer) BUN/Creatinine Ratio Glucose POC Glucose 290 H 193 H Calcium Phosphorus Magnesium Troponin I 0.133 H* 08/18/18 08/19/18 08/19/18 22:07 00:42 04:26 WBC RBC Hgb Hct MCV MCH MCHC RDW Std Deviation RDW Coeff of Yuliya Plt Count MPV Immature Gran % (Auto) Neut % (Auto) Lymph % (Auto) [place] % (Auto) Eos % (Auto) Baso % (Auto) Immature Gran # (Auto) Neut # (Auto) Lymph # (Auto) [place] # (Auto) Eos # (Auto) Baso # (Auto) Sodium 137 Potassium 4.6 Chloride 106 Carbon Dioxide 25 Anion Gap 6.0 BUN 22 H Creatinine 1.11 Est Cr Clr Drug Dosing 49.0 Est GFR ( Amer) 69.3 Est GFR (Non-Af Amer) 59.8 BUN/Creatinine Ratio 19.4 Glucose 145 H POC Glucose 168 H Calcium 8.3 L Phosphorus 3.3 Magnesium 1.9 Troponin I 0.183 H* 0.204 H* 08/19/18 08/19/18 08/19/18 04:26 07:22 10:02 WBC 5.80 RBC 3.91 L Hgb 12.7 L Hct 38.0 L MCV 97.2 MCH 32.5 MCHC 33.4 RDW Std Deviation 50.8 H RDW Coeff of Yuliya 14.2 Plt Count 163 MPV 10.0 Immature Gran % (Auto) 0.2 Neut % (Auto) 67.9 Lymph % (Auto) 13.8 [place] % (Auto) 18.1 Eos % (Auto) 0.0 Baso % (Auto) 0.0 Immature Gran # (Auto) 0.01 Neut # (Auto) 3.94 Lymph # (Auto) 0.80 L [place] # (Auto) 1.05 H Eos # (Auto) 0.00 Baso # (Auto) 0.00 Sodium Potassium Chloride Carbon Dioxide Anion Gap BUN Creatinine Est Cr Clr Drug Dosing Est GFR ( Amer) Est GFR (Non-Af Amer) BUN/Creatinine Ratio Glucose POC Glucose 198 H Calcium Phosphorus Magnesium Troponin I 0.181 H* 08/19/18 11:22 WBC RBC Hgb Hct MCV MCH MCHC RDW Std Deviation RDW Coeff of Yuliya Plt Count MPV Immature Gran % (Auto) Neut % (Auto) Lymph % (Auto) [place] % (Auto) Eos % (Auto) Baso % (Auto) Immature Gran # (Auto) Neut # (Auto) Lymph # (Auto) [place] # (Auto) Eos # (Auto) Baso # (Auto) Sodium Potassium Chloride Carbon Dioxide Anion Gap BUN Creatinine Est Cr Clr Drug Dosing Est GFR ( Amer) Est GFR (Non-Af Amer) BUN/Creatinine Ratio Glucose POC Glucose 120 H Calcium Phosphorus Magnesium Troponin I Total Time Total Time Spent Total Time Spent (In Minutes): 35 Total Time Includes: Examination of the Patient, Discharge Planning, Medication Reconciliation and Communication With Other Providers Discharge Plan Discharge Items Patient Disposition: Home - Self-Care Reason For Visit: INFLUENZA A, ELEVATED TROPONINS Discharge Diagnosis: INFLUENZA A, EEVATED TROPONINS mild bilateral hydroureteronephrosis, possible from component of bladder outlet obstruction Condition: Fair Discharge Goals: Decrease discomfort, Diagnostic testing, Improve disease control, Improve function, Increase independence, Improve nutritional status, Learn about illness, Prevent disease and Therapeutic intervention Activity: Resume your previous activity Non-emergency contact: Primary Care Provider and [facility] Director Call non-emergency contact if: you have any medication questions Follow-up/Referrals: Aroldo Lomeli MD [Primary Care Provider] - Diet: Heart Healthy Addtl Provider Instructions: you have INFLUENZA A, you have ELEVATED TROPONINS you have mild bilateral hydroureteronephrosis, possible from component of bl adder out you need to follow up with your primary care physician in 1 week, - take medication as instructed, never overdose or any misuse, or take with alcohol, because misuse of medicine may cause organ damage or , call me, or your primary care physician if have questions of discharge medicaitons. - call your primary care physician, or go to local emergency room if has any fever/chill, chest pain, shortness of breathing, nausea/vomiting/abdominal pain, facial droop/slurry speech/local weakness, or if has any questions. - fall precaution - diet as instructed - you need to follow up with your subspecialist, such as Dr. Soler as instructed Prescriptions: New oseltamivir [Tamiflu] 6 mg/mL Suspension For Reconstitution 5 ml PO BID 5 Days RF: 0 Continued atorvastatin 20 mg tablet 20 mg PO HS RF: 0 benazepril 5 mg tablet 5 mg PO QAM RF: 0 aspirin 81 mg Tablet,Delayed Release (Dr/Ec) 81 mg PO DAILY RF: 0 albuterol sulfate 90 mcg/actuation HFA aerosol inhaler 2 puff Inhalation QID PRN (Reason: Shortness Of Breath Or Wheezing) RF: 0 finasteride 5 mg tablet 5 mg PO QAM RF: 0 metoprolol tartrate 25 mg tablet 25 mg PO BID RF: 0 omega 5-jzm-kxk-fish oil [Fish Oil] 1,000 mg (120 mg-180 mg) Capsule 1 cap PO QAM RF: 0 doxycycline hyclate 100 mg capsule 100 mg PO BID Qty: 7 RF: 0 prednisone 20 mg tablet 40 mg PO DAILY Qty: 6 RF: 0 amoxicillin-pot clavulanate [Augmentin] 875-125 mg tablet 1 tab PO BID Qty: 7 RF: 0 Xarelto 20 mg tablet 20 mg PO DAILY RF: 0 Stand-Alone Forms: [facility] Discharge Orders: Discharge Order (Routine); Ordered 08/19/18 Ordered By: Raymond Stewart Admission Data Admit Date/Time: 08/18/18 09:51 Attending Provider: Raymond Stewart Admit Provider: Raymond Stewart Primary Care Provider: Aroldo Lomeli Other Providers: Raymond Stewart ; Jose Simmons Service: Telemetry Other Interventions: Discharge Summary Assessment (RN) Last Done: 08/19/18 12:54 DC Date/Time DO NOT enter until pt leaves facility: 08/19/18 13:56
[2018-08-20 06:45] LABS: Estimated Average Glucose 169 mg/dl; Hemoglobin A1C 7.5 % (4.5-5.6)
--- NOTE | 2018-08-21 11:27 | Coding Query ---
To promote full compliance with coding requirements relating to patient care, provider participation is requested in all cases of check and transfer beader uncertainty. Please assist us with the question(s) below: Coding Question(s): The diagnoses below were documented in the H&P then subsequently fell off all further documentation. Please indicate if they are still a possible diagnosis or ruled out. Physician's Response(s): ACUTE ASTHMA EXACERBATION ( ) Diagnosed and POA ( ) Diagnosed and not POA ( x ) Ruled out ( ) Other (please specify) possible DEMAND ISCHEMIA ( x ) Diagnosed and POA ( ) Diagnosed and not POA ( ) Ruled out ( ) Other (please specify) MTDD
== END 2018-08-19 13:56 | disposition home or self-care (01) | DRG 194 ==
LOC: ED 07:05 → 2E 09:51

== ENCOUNTER 2019-11-08 10:09 | Inpatient (IN) ==
[2019-11-08] MEDS ORDERED: NITROGLYCERIN SL 0.4 MG/TAB TAB SL PRN (10:22)
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
[2019-11-08] MEDS ORDERED: SODIUM CHLORIDE 0.9% 1000ML 1,000 ML IV SCH (10:30)
[2019-11-08] MEDS ORDERED: OPTIRAY 320 125ml IV PRN (10:38)
[2019-11-08 10:46] LABS: iSTAT Creatinine 1.2 mg/dl (0.6-1.3); iSTAT Hemoglobin 16.3 g/dl (14.0-18.0); iSTAT Ionized Calcium 1.19 mmol/l (1.12-1.32)
--- NOTE | 2019-11-08 10:47 | XRay Report ---
XR chest 1V portable HISTORY: Atypical Chest Pain COMPARISON: Chest 11/05/2018. FINDINGS: No pneumothorax. No pleural effusions. There are low lung volumes. There is left-sided dual -chamber pacemaker. The heart remains borderline enlarged. Increased markings at the lung bases favor subsegmental atelectasis. Otherwise, no new focal lung consolidations to suggest pneumonia. No evide nce for pulmonary edema. There is a right shoulder prosthesis. IMPRESSION: No significant change compared to the prior study. No acute process. ACT 112: Negative or not required by law. Electronically signed by: Estrada Spence M.D. 11/08/2019 10:46 AM
[2019-11-08 10:57] LABS: Basophils # (auto) 0.02 K/uL (0-0.2); Basophils % (auto) 0.2 %; Eosinophils # (auto) 0.05 K/uL (0-0.5); Eosinophils % (auto) 0.5 %; Hematocrit (blood only) 46.6 % (42-52); Hemoglobin 15.9 g/dL (14.0-18.0); Immature Granulocytes # (auto) 0.02 K/uL (0.00-0.02); Immature Granulocytes % (auto) 0.2 %; Lymphocytes # (auto) 0.87 K/uL (1.2-3.4); Lymphocytes % (auto) 8.7 %; Mean Corpuscular Hemoglobin 33.6 pg (25-34); Mean Corpuscular Hgb Conc 34.1 g/dL (32-36); Mean Corpuscular Volume 98.5 fL (80-100); Monocytes # (auto) 0.36 K/uL (0.11-0.59); Monocytes % (auto) 3.6 %; Neutrophils # (auto) 8.67 K/uL (1.4-6.5); Neutrophils % (auto) 86.8 %; Platelet Count 227 K/uL (130-400); RDW Coefficient of Variation 13.1 % (11.5-14.5); RDW Standard Deviation 47.2 fL (36.4-46.3); Red Blood Count 4.73 M/uL (4.7-6.1); White Blood Count 9.99 K/uL (4.8-10.8)
[2019-11-08 11:04] LABS: INR 1.2 (0.9-1.1); Partial Thromboplastin Ratio 1.1; Prothrombin Time 12.2 Seconds (9.0-12.0)
--- NOTE | 2019-11-08 11:06 | CT Scan Report ---
CHEST CTA for AORTIC DISSECTION CT DOSE: 2341.43 mGy.cm HISTORY: Atypical chest pain. ro aortic dissection TECHNIQUE: Multiaxial CT images of the chest were performed both before and after the intravenous adm inistration of contrast to evaluate the aorta. Maximal intensity projection images were also obtained . A dose lowering technique was utilized adhering to the principles of ALARA. COMPARISON STUDY: Chest 11/08/2019. FINDINGS: Noncontrast imaging through the chest shows no evidence for an intramural hematoma within t he thoracic aorta. There is mild calcified plaque within the thoracic aorta. Normal caliber thoracic aorta with no evidence for dissection. There is mild calcified plaque within the coronary arteries. T he central pulmonary arteries are patent. No suspicious lytic or blastic osseous lesions. Advanced de generative changes within the left shoulder. There is a right shoulder arthroplasty. Left-sided pacem josselin is noted. No pneumothorax. Trace mucoid material within the trachea. Otherwise, the central airw ays are patent. A 7 mm right thyroid nodule. Please refer to the same day abdomen and pelvis CT for f urther evaluation of the abdominal structures. Normal esophagus. The heart is mildly enlarged. No med iastinal lymphadenopathy. No left hilar lymphadenopathy. There are a few mildly enlarged right hilar/ bronchial lymph nodes measuring up to 9 mm in short axis diameter. Please refer to the same day abdom en and pelvis CT for further evaluation of the abdominal structures. Bibasilar interstitial thickenin g which is likely chronic. A 7 mm left apical subpleural nodular density favor scarring. A 4 mm subpl eural nodule seen within the left lower lobe in image 146. A few bibasilar linear densities which fav or subsegmental atelectasis. Groundglass densities at the lung bases posteriorly also favor mild depe ndent change. Otherwise, no focal lung consolidations to suggest pneumonia. IMPRESSION: 1. No evidence for an aortic dissection. 2. A few mildly enlarged right hilar/bronchial lymph nodes. These are indeterminate but could be reac tive. 3. Bibasilar groundglass and linear densities are nonspecific but favor atelectasis/dependent change. 4. Additional findings as described above. 5. Please refer to the same day abdomen and pelvis CT for further evaluation. ACT 112: Negative or not required by law. Electronically signed by: Estrada Spence M.D. 11/08/2019 11:05 AM
[2019-11-08 11:07] LABS: BUN Creatinine Ratio 18.7 (10-20); Calcium 8.9 mg/dl (8.5-10.1); Est GFR (African American) 56.9; Est GFR (Non-African American) 49.1; Magnesium 2.2 mg/dl (1.8-2.4)
[2019-11-08 11:12] LABS: Troponin I 0.024 ng/ml (0-0.045)
--- NOTE | 2019-11-08 11:12 | CT Scan Report ---
CT ANGIOGRAPHY OF THE ABDOMEN AND PELVIS CLINICAL HISTORY: Chest pain. Evaluate for dissection. COMPARISON STUDY: CT of the abdomen and pelvis August 18, 2018. TECHNIQUE: Helical axial images of the abdomen and pelvis were obtained during arterial phase followi ng intravenous injection of 119 cc of Optiray 320 IV. Sagittal and coronal reconstructions were viewe d as well as maximal intensity projections on an independent 3-D workstation. Automated exposure cont rol was utilized for the study. A dose lowering technique was utilized adhering to the principles of ALARA. FINDINGS: Please note that the chest CT will be reported separately. The caliber of the abdominal aor ta is normal. There is no abdominal aortic dissection. There is moderate plaque within the abdominal aorta and the branch vessels. The mesenteric vessels are patent. There is moderate stenosis of the bi lateral renal arteries. No pneumatosis, free air or portal venous gas is present. The liver is cirrho tic. There is heterogeneity of the liver parenchyma. Pneumobilia is noted. Moderate to severe biliary ductal dilatation has increased since CT of August 18, 2018. There is a large filling defect, measurin g approximately 1.8 cm within the distal common bile duct. There is no peripancreatic infiltration. N o pancreatic ductal dilatation is present. The spleen and adrenal glands are unremarkable. There is m oderate bilateral renal cortical thinning. There is suspected scarring within the upper pole the righ t kidney. A cyst within the lower pole of the right kidney is noted. There is no evidence for a bowel obstruction. The appendix is normal. Moderate bladder wall thickening is noted. The prostate is enla rged. There are no suspicious osseous lesions. There is no ascites. No lymphadenopathy is present. IMPRESSION: 1. No abdominal aortic dissection or aneurysm. Moderate atherosclerotic plaque within the abdominal a ely and branch vessels with moderate stenosis of the bilateral renal arteries. 2. Moderate to severe biliary ductal dilatation increased since CT of August 18, 2018. Large filling de fect, measuring approximately 1.8 cm, within the distal common bile duct. A large calculus is favored . A mass could appear similar. GI consultation is recommended. 3. Cirrhosis. Heterogeneity of the liver parenchyma, possibly due to the phase of enhancement or for passive hepatic congestion. No mass identified. ACT 112: Negative or not required by law. Electronically signed by: Emmanuel Lim M.D. 11/08/2019 11:10 AM
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
[2019-11-08 12:11] LABS: Albumin Level 3.8 gm/dl (3.4-5.0); Bilirubin Direct 0.7 mg/dl (0-0.2); Bilirubin,Total 1.8 mg/dl (0.2-1); Total Protein 8.2 gm/dl (6.4-8.2)
[2019-11-08] MEDS ORDERED: DEXTROSE 50% 50 ML SYRINGE IV PRN (13:35)
[2019-11-08] MEDS ORDERED: ACETAMINOPHEN 325 MG TAB PO PRN (13:35)
[2019-11-08] MEDS ORDERED: NON-FORMULARY MEDICATION (Acetaminophen [Tylenol Arthritis Pain] 650 MG) PO PRN (13:35)
[2019-11-08] MEDS ORDERED: CARBOHYDRATES FOR HYPOGLYCEMIA PO PRN (13:35)
[2019-11-08] MEDS ORDERED: ALBUTEROL HFA 8 GM INHALER INH PRN (13:35)
[2019-11-08] MEDS ORDERED: GLUCAGON FOR INJ 1 MG VIAL SQ PRN (13:35)
[2019-11-08] MEDS ORDERED: ONDANSETRON INJ 2 MG/ML 2 ML VIAL IV PRN (13:35)
[2019-11-08] MEDS ORDERED: GLUCOSE 40% GEL 15 GM TUBE PO PRN (13:35)
[2019-11-08] MEDS ORDERED: GLUCOSE 10 TABS/TUBE PO PRN (13:35)
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
[2019-11-08] MEDS: HEPARIN SOD 5,000 UNIT/0.5 ML VIAL SQ SCH ×2 (15:55→22:22)
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
[2019-11-08] MEDS: INSULIN ASPART 100 UNITS/ML 3 ML PEN SC SCH ×2 (17:07→20:41)
--- NOTE | 2019-11-08 18:26 | XCELERA ---
[id number]
--- NOTE | 2019-11-08 19:46 | Electrocardiogram Report ---
Test Reason : Blood Pressure : / mmHG Vent. Rate : 065 BPM Atrial Rate : 000 BPM P-R Int : 000 ms QRS Dur : 130 ms QT Int : 426 ms P-R-T Axes : 000 -58 073 degrees QTc Int : 443 ms Atrial paced rhythm with MObitz one conduction and proprietary MVP algorithm Right bundle branch block Left anterior fascicular block Bifascicular block Voltage criteria for left ventricular hypertrophy Abnormal ECG When compared with ECG of 24-NOV-2018 10:24, Vent. rate has increased BY 2 BPM Confirmed by Mark Simmons ([id number]) on 11/08/2019 7:46:18 PM Referred By: REFERRED SELF Confirmed By:Mars Simmons
[2019-11-08] MEDS: metroNIDAZOLE 500 MG/100 ML BAG IV SCH (20:12)
[2019-11-08] MEDS: CIPROFLOXACIN / D5W 400 MG/200 ML BAG IV SCH (20:12)
[2019-11-08] MEDS: METOPROLOL TARTRATE 25 MG TAB PO SCH (20:19)
[2019-11-08] MEDS ORDERED: RIVAROXABAN 20 MG TAB PO SCH (21:00)
[2019-11-09] MEDS: HEPARIN SOD 5,000 UNIT/0.5 ML VIAL SQ SCH ×3 (05:04→20:20)
[2019-11-09] MEDS: metroNIDAZOLE 500 MG/100 ML BAG IV SCH ×3 (05:04→20:19)
[2019-11-09 06:36] LABS: Hematocrit (blood only) 43.1 % (42-52); Hemoglobin 14.9 g/dL (14.0-18.0); Mean Corpuscular Hemoglobin 33.6 pg (25-34); Mean Corpuscular Hgb Conc 34.6 g/dL (32-36); Mean Corpuscular Volume 97.3 fL (80-100); Mean Platelet Volume 9.9 fL (7.4-10.4); Platelet Count 209 K/uL (130-400); RDW Coefficient of Variation 13.3 % (11.5-14.5); RDW Standard Deviation 46.6 fL (36.4-46.3); Red Blood Count 4.43 M/uL (4.7-6.1); White Blood Count 11.52 K/uL (4.8-10.8)
[2019-11-09] MEDS ORDERED: ACETAMINOPHEN 500 MG TAB PO PRN (06:58)
[2019-11-09] MEDS ORDERED: IBUPROFEN 800 MG TAB PO PRN (07:01)
[2019-11-09 07:17] LABS: Albumin Globulin Ratio 0.8 (0.9-2); Albumin Level 3.1 gm/dl (3.4-5.0); BUN Creatinine Ratio 21.4 (10-20); Bilirubin Direct 2.1 mg/dl (0-0.2); Bilirubin,Total 4.2 mg/dl (0.2-1); Calcium 8.9 mg/dl (8.5-10.1); Creatinine Clr Calc Pharmacy 43.8 ml/min; Est GFR (African American) 61.4; Globulin 3.9 gm/dl (2.5-4.0)
--- NOTE | 2019-11-09 07:40 | Gastroenterology Progress Note ---
Date of Service November 09, 2019 Assessment & Plan (1) Cholangitis: Patient had presented with evidence of a recurrent gallstone manifest by pain and slight elevation of his liver associated enzymes. Initially he was pain-free after admission however and we had planned for ERCP early next week. Overnight he has developed chills, Rigor's and a new leukocytosis concerning for cholangitis (despite being on antibiotic coverage). Given the acute worsening of his symptoms we will proceed with ERCP today for urgent decompression of the biliary tree. The patient is at high risk of perioperative complications given his cardiac history last dose of Xarelto being yesterday. Admission and Anticipated Discharge Date Admission Date: November 08, 2019 Subjective Patient notes that his symptoms became much worse yesterday evening. His abdominal pain is now unremitting as compared to yesterday afternoon when he had no pain at all. He also has developed chills and Rigor's overnight. Review of Systems Constitutional: + chills, + sweats and + malaise Respiratory: no hemoptysis Cardiovascular: no chest pain with activity Genitourinary: no urinary frequency Physical Exam Constitutional: + ill appearing Eyes: Scleral icterus noted Respiratory: no respiratory distress Cardiovascular: Heart Sounds: + murmur Gastrointestinal (Abdomen): Inspection/Auscultation: abdomen not distended Percussion/Palpation: + abdomen tender; no guarding and abdomen not rigid Results & Data ([facility]) Vital Signs (Past 12 Hours) Vital Signs Temp Pulse Resp BP BP Pulse Ox 11/09/19 03:24 36.5 C 60 17 139/69 98 11/09/19 00:01 36.4 C L 61 18 115/69 94 11/08/19 19:55 36.7 C 60 18 129/72 98 Laboratory Results Laboratory Results - last 24 hr 11/08/19 11/08/19 11/08/19 10:25 10:25 10:25 WBC 9.99 RBC 4.73 Hgb 15.9 POC Hgb Hct 46.6 POC Hct MCV 98.5 MCH 33.6 MCHC 34.1 RDW Std Deviation 47.2 H RDW Coeff of Yuliya 13.1 Plt Count 227 MPV 10.0 Immature Gran % (Auto) 0.2 Neut % (Auto) 86.8 Lymph % (Auto) 8.7 Newton % (Auto) 3.6 Eos % (Auto) 0.5 Baso % (Auto) 0.2 Immature Gran # (Auto) 0.02 Neut # (Auto) 8.67 H Lymph # (Auto) 0.87 L Newton # (Auto) 0.36 Eos # (Auto) 0.05 Baso # (Auto) 0.02 Absolute Nucleated RBC 0.00 Nucleated RBC % (auto) 0.0 PT 12.2 H INR 1.2 H APTT 30.0 PTT Ratio 1.1 POC Sodium Sodium 140 POC Potassium Potassium 4.0 POC Chloride Chloride 105 Carbon Dioxide 27 POC Total CO2 Anion Gap 8.0 POC Anion Gap POC BUN BUN 24 H Creatinine 1.30 POC Creatinine Est Cr Clr Drug Dosing 43.0 Est GFR ( Amer) 56.9 Est GFR (Non-Af Amer) 49.1 BUN/Creatinine Ratio 18.7 Glucose 178 H POC Glucose POC Glucose (other) Estimat Average Glucose Hemoglobin A1c Calcium 8.9 POC Ioniz Calcium Cody Magnesium 2.2 Total Bilirubin Direct Bilirubin AST ALT Alkaline Phosphatase Troponin I 0.024 Total Protein Albumin Globulin Albumin/Globulin Ratio Lipase 204 11/08/19 11/08/19 11/08/19 10:25 10:33 13:39 WBC RBC Hgb POC Hgb 16.3 Hct POC Hct 48 MCV MCH MCHC RDW Std Deviation RDW Coeff of Yuliya Plt Count MPV Immature Gran % (Auto) Neut % (Auto) Lymph % (Auto) Newton % (Auto) Eos % (Auto) Baso % (Auto) Immature Gran # (Auto) Neut # (Auto) Lymph # (Auto) Newton # (Auto) Eos # (Auto) Baso # (Auto) Absolute Nucleated RBC Nucleated RBC % (auto) PT INR APTT PTT Ratio POC Sodium 135 Sodium POC Potassium 4.0 Potassium POC Chloride 104 Chloride Carbon Dioxide POC Total CO2 27 Anion Gap POC Anion Gap 10.0 L POC BUN 27 H BUN Creatinine POC Creatinine 1.2 Est Cr Clr Drug Dosing Est GFR ( Amer) Est GFR (Non-Af Amer) BUN/Creatinine Ratio Glucose POC Glucose 98 POC Glucose (other) 176 H Estimat Average Glucose Hemoglobin A1c Calcium POC Ioniz Calcium Cody 1.19 Magnesium Total Bilirubin 1.8 H Direct Bilirubin 0.7 H AST 271 H ALT 136 H Alkaline Phosphatase 222 H Troponin I Total Protein 8.2 Albumin 3.8 Globulin Albumin/Globulin Ratio Lipase 11/08/19 11/08/1911/07/20 16:23 16:36 20:23 WBC RBC Hgb POC Hgb Hct POC Hct MCV MCH MCHC RDW Std Deviation RDW Coeff of Yuliya Plt Count MPV Immature Gran % (Auto) Neut % (Auto) Lymph % (Auto) Newton % (Auto) Eos % (Auto) Baso % (Auto) Immature Gran # (Auto) Neut # (Auto) Lymph # (Auto) Newton # (Auto) Eos # (Auto) Baso # (Auto) Absolute Nucleated RBC Nucleated RBC % (auto) PT INR APTT PTT Ratio POC Sodium Sodium POC Potassium Potassium POC Chloride Chloride Carbon Dioxide POC Total CO2 Anion Gap POC Anion Gap POC BUN BUN Creatinine POC Creatinine Est Cr Clr Drug Dosing Est GFR ( Amer) Est GFR (Non-Af Amer) BUN/Creatinine Ratio Glucose POC Glucose 193 H 109 H POC Glucose (other) Estimat Average Glucose Hemoglobin A1c Calcium POC Ioniz Calcium Cody Magnesium Total Bilirubin Direct Bilirubin AST ALT Alkaline Phosphatase Troponin I 0.037 Total Protein Albumin Globulin Albumin/Globulin Ratio Lipase 11/09/19 11/09/19 11/09/19 00:25 06:20 06:20 WBC 11.52 H RBC 4.43 L Hgb 14.9 POC Hgb Hct 43.1 POC Hct MCV 97.3 MCH 33.6 MCHC 34.6 RDW Std Deviation 46.6 H RDW Coeff of Yuliya 13.3 Plt Count 209 MPV 9.9 Immature Gran % (Auto) Neut % (Auto) Lymph % (Auto) Newton % (Auto) Eos % (Auto) Baso % (Auto) Immature Gran # (Auto) Neut # (Auto) Lymph # (Auto) Newton # (Auto) Eos # (Auto) Baso # (Auto) Absolute Nucleated RBC Nucleated RBC % (auto) PT INR APTT PTT Ratio POC Sodium Sodium 137 POC Potassium Potassium 4.0 POC Chloride Chloride 106 Carbon Dioxide 22 POC Total CO2 Anion Gap 9.0 POC Anion Gap POC BUN BUN 26 H Creatinine 1.22 POC Creatinine Est Cr Clr Drug Dosing 43.8 Est GFR ( Amer) 61.4 Est GFR (Non-Af Amer) 53.0 BUN/Creatinine Ratio 21.4 H Glucose 104 H POC Glucose POC Glucose (other) Estimat Average Glucose Hemoglobin A1c Calcium 8.9 POC Ioniz Calcium Cody Magnesium Total Bilirubin 4.2 H D Direct Bilirubin 2.1 H D AST 108 H ALT 141 H Alkaline Phosphatase 202 H Troponin I 0.036 Total Protein 7.0 Albumin 3.1 L Globulin 3.9 Albumin/Globulin Ratio 0.8 L Lipase 11/09/19 06:20 WBC RBC Hgb POC Hgb Hct POC Hct MCV MCH MCHC RDW Std Deviation RDW Coeff of Yuliya Plt Count MPV Immature Gran % (Auto) Neut % (Auto) Lymph % (Auto) Newton % (Auto) Eos % (Auto) Baso % (Auto) Immature Gran # (Auto) Neut # (Auto) Lymph # (Auto) Newton # (Auto) Eos # (Auto) Baso # (Auto) Absolute Nucleated RBC Nucleated RBC % (auto) PT INR APTT PTT Ratio POC Sodium Sodium POC Potassium Potassium POC Chloride Chloride Carbon Dioxide POC Total CO2 Anion Gap POC Anion Gap POC BUN BUN Creatinine POC Creatinine Est Cr Clr Drug Dosing Est GFR ( Amer) Est GFR (Non-Af Amer) BUN/Creatinine Ratio Glucose POC Glucose POC Glucose (other) Estimat Average Glucose Pending Hemoglobin A1c Pending Calcium POC Ioniz Calcium Cody Magnesium Total Bilirubin Direct Bilirubin AST ALT Alkaline Phosphatase Troponin I Total Protein Albumin Globulin Albumin/Globulin Ratio Lipase
[2019-11-09] MEDS: INSULIN ASPART 100 UNITS/ML 3 ML PEN SC SCH ×4 (07:55→20:21)
[2019-11-09] MEDS: CIPROFLOXACIN / D5W 400 MG/200 ML BAG IV SCH ×2 (08:00→20:19)
[2019-11-09] MEDS ORDERED: fentaNYL citrate 100 MCG/2 ML VIAL ONE (08:49)
[2019-11-09] MEDS ORDERED: PROPOFOL IV EMULSION 10 MG/ML 20 ML VIAL IV ONE (08:50)
[2019-11-09] MEDS ORDERED: SUCCINYLCHOLINE 100MG/5ML SYR IV ONE (08:50)
[2019-11-09] MEDS ORDERED: LIDOCAINE HCL 2% 2 ML VIAL/AMP(20MG/ML) INFIL ONE (08:50)
[2019-11-09] MEDS ORDERED: ROCURONIUM BROMIDE 10 MG/ML 5 ML VIAL ONE (08:50)
[2019-11-09] MEDS ORDERED: fentaNYL citrate 100 MCG/2 ML VIAL IV PRN (08:56)
[2019-11-09] MEDS ORDERED: ePHEDrine sulfate 50 MG/ML AMP IV PRN (08:56)
[2019-11-09] MEDS ORDERED: ATROPINE SULFATE 0.1 MG/ML 10ML SYR IV PRN (08:56)
[2019-11-09] MEDS ORDERED: ONDANSETRON INJ 2 MG/ML 2 ML VIAL IV PRN (08:56)
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
[2019-11-09] MEDS ORDERED: INDOMETHACIN 50 MG SUPP PR ONE ×2 (09:01→09:11)
[2019-11-09] MEDS ORDERED: ROCURONIUM BROMID 50MG/5ML SYR ONE (09:30)
--- NOTE | 2019-11-09 10:07 | Post Operative Brief Note ---
Immediate Post Op Note v1 Date of Surgery November 09, 2019 Pre & Post Diagnosis Operation Date: 11/09/19 09:00 Pre-Op Diagnosis: Cholangitis Post-Op Diagnosis: Cholangitis/biliary sludge and stone material Operation Date: 11/12/19 12:30 <No data on this case meets the specified criteria> I identified the patient and participated in the time-out.: Yes Procedure Operation Date: 11/09/19 09:00 Actual Procedures p Endoscopic Retrograde Cholangiopancreatogram(Not Applicable) - Erick Schultz Operation Date: 11/12/19 12:30 <No data on this case meets the specified criteria> Surgeon Erick Schultz Revenue Investigator none Estimated Blood Loss 0 Findings Consistent with Post-Op Diagnosis
--- NOTE | 2019-11-09 10:09 | Communication Note ---
Date of Service: November 09, 2019 The patient underwent urgent ERCP today given the clinical concern of cholangitis that developed overnight. The procedure was notable for a large amount of sludge and stone material within the common bile duct. Two biliary stents were placed during the procedure today. Recommendations Continue broad-spectrum antibiotics for 10 days May have clear liquids today Repeat ERCP for stent removal in 6 to 8 weeks Would hold Xarelto for another 3 days in case another urgent follow-up procedure is needed
[2019-11-09] MEDS ORDERED: NEOSTIGMINE METHYLSULFATE 5 MG/5 ML SYR ONE (10:14)
[2019-11-09] MEDS ORDERED: GLYCOPYRROLATE 0.2 MG/ML VIAL ONE (10:14)
[2019-11-09] MEDS ORDERED: LABETALOL HCL IV 5 MG/ML 20ML IV ONE (10:20)
--- NOTE | 2019-11-09 10:22 | GI REPORT ---
Patient Name: Dagoberto Dempsey Procedure Date: 11/09/2019 9:12 AM Date of : 1930 Admit Type: Inpatient Age: 89 Gender: Male Attending MD: Erick Schultz DO Procedure: ERCP Providers: Erick Schultz DO Referring MD: Aroldo Barone Indications: Bile duct stone on Computed Tomogram Scan, Suspected ascending cholangitis, Jaundice, Elevated liver enzymes Medicines: General Anesthesia Complications: No immediate complications. Estimated blood loss: Minimal. Estimated Blood Loss: Estimated blood loss was minimal. Procedure: Pre-Anesthesia Assessment: - Prior to the procedure, a History and Physical was performed, and patient medications, allergies and sensitivities were reviewed. The patient's tolerance of previous anesthesia was reviewed. - The risks and benefits of the procedure and the sedation options and risks were discussed with the patient. All questions were answered and informed consent was obtained. - Patient identification and proposed procedure were verified prior to the procedure by the physician, the nurse and the deck officer. The procedure was verified in the procedure room. - Pre-procedure physical examination revealed no contraindications to sedation. - ASA Grade Assessment: III - A patient with severe systemic disease. - After reviewing the risks and benefits, the patient was deemed in satisfactory condition to undergo the procedure. - The anesthesia plan was to use general anesthesia. - Immediately prior to administration of medications, the patient was re-assessed for adequacy to receive sedatives. - The heart rate, respiratory rate, oxygen saturations, blood pressure, adequacy of pulmonary ventilation, and response to care were monitored throughout the procedure. - The physical status of the patient was re-assessed after the procedure. After obtaining informed consent, the scope was passed under direct vision. Throughout the procedure, the patient's blood pressure, pulse, and oxygen saturations were monitored continuously. The scope was introduced through the mouth, and advanced to the duodenum and used to inject contrast into the bile duct. The ERCP was accomplished without difficulty. The patient tolerated the procedure well. Findings: A wire straightener film of the abdomen was obtained. Surgical clips, consistent with a previous cholecystectomy, were seen in the area of the right upper quadrant of the abdomen. The esophagus was successfully intubated under direct vision without detailed examination of the pharynx, larynx, and associated structures, and upper GI tract. The upper GI tract was grossly normal. A biliary sphincterotomy had been performed in the past. The sphincterotomy appeared open. The bile duct was deeply cannulated with the short-nosed traction sphincterotome and guidewire. Contrast was injected. I personally interpreted the bile duct images. Contrast extended to the entire biliary tree. A cholecystectomy had been performed. The main bile duct was diffusely dilated. The largest diameter was 12-14 mm. The main bile duct contained filling defect(s) thought to be a stone and sludge. The lower third of the main bile duct was successfully dilated with a 10 mm balloon dilator held inflated for 3 minutes. The biliary tree was swept numerous times with a 12 to 20 mm balloon starting at the distal duct and working up to the bifurcation. A large amount of thick green sludge, soft stone material and pus was swept from the duct. No stones remained. Two 7 Fr by 4 cm biliary stents with a full external pigtail and a full internal pigtail were placed into the common bile duct. Bile and pus flowed through the stents. The stents were in good position. The total fluoroscopy exposure time was 1 minute and 28 seconds. The endoscope was withdrawn from the patient. Indomethacin 100 mg was given via suppository to decrease the risk of post-ERCP pancreatitis (PEP). Impression: - The patient has had a cholecystectomy. - Choledocholithiasis was found. Complete removal was accomplished by dilation of the biliary orifice to 10 mm and balloon extraction. -- Two biliary stents were placed into the common bile duct due to underlying cholangitis. - Indomethacin given to decrease risk of post-ERCP pancreatitis. Recommendation: - Avoid aspirin and nonsteroidal anti-inflammatory medicines for 5 days. - Use broad spectrum antibiotics for 10 days. - Clear liquid diet today. Erick Schultz D.O. Erick Schultz, 11/09/2019 10:21:46 AM This report has been signed electronically. Note Initiated On: 11/09/2019 9:12 AM Number of Addenda: 0 I attest to the content of the Intraoperative Record and orders documented therein, exceptions below {[id number]}
--- NOTE | 2019-11-09 10:30 | Fluoroscopy Report ---
[place] ERCP biliary ductal CLINICAL HISTORY: ERCP COMPARISON STUDY: Abdomen and pelvis CT 11/08/2019. FLUOROSCOPY TIME: 1 minute and 42 seconds. 9 fluoroscopic spot images. FINDINGS: The ampulla was cannulated and contrast was injected into the distended common bile duct. I rregular filling defect seen within the common bile duct. A balloon sweep was performed. This is foll owed by placement of 2 common bile duct stents. These appear in good position. The gallbladder is ghulam gically absent. IMPRESSION: Fluoroscopy provided for ERCP with placement of 2 common bile duct stents which appear in good position ACT 112: Negative or not required by law. Electronically signed by: Estrada Spence M.D. 11/09/2019 10:29 AM
--- NOTE | 2019-11-09 10:39 | Anesthesiology Progress Note ---
Date of Service November 09, 2019 Anesthesia Post Procedure Vital Signs Vital Signs: Temp Pulse Resp BP BP Pulse Ox 11/09/19 10:35 78 32 H 155/58 H 94 11/09/19 10:28 37.2 C 80 20 165/65 H 93 11/09/19 07:42 36.7 C 71 18 163/67 H 96 11/09/19 03:24 36.5 C 60 17 139/69 98 11/09/19 00:01 36.4 C L 61 18 115/69 94 11/08/19 19:55 36.7 C 60 18 129/72 98 11/08/19 15:22 36.6 C 69 20 130/53 L 96 11/08/19 13:34 36.6 C 71 20 121/69 98 11/08/19 12:30 60 23 107/47 L 97 11/08/19 12:00 60 26 H 118/44 L 96 11/08/19 11:03 66 16 165/67 H Transfer of Care Handoff Completed per policy Notes Mental Status: alert / awake / arousable and participated in evaluation Patient Amnestic to Procedure: Yes Nausea / Vomiting: adequately controlled Pain: adequately controlled Airway Patency, RR, SpO2: stable & adequate BP & HR: stable & adequate Hydration State: stable & adequate Anesthetic Complications: no major complications apparent and Pt Satisfied with anesthetic care
[2019-11-09] MEDS: ENALAPRIL MALEATE 5 MG TAB PO SCH (12:21)
[2019-11-09] MEDS: FINASTERIDE 5 MG TAB PO SCH (12:22)
[2019-11-09] MEDS: METOPROLOL TARTRATE 25 MG TAB PO SCH ×2 (12:22→20:20)
[2019-11-09] MEDS: FLUTICASONE/VILANTEROL 100/25MCG 14 PUFFS/INHALER INH SCH (12:23)
--- NOTE | 2019-11-09 18:18 | Family Medicine Progress Note ---
Date of Service November 09, 2019 Assessment & Plan (1) Cholangitis: Status post ERCP with large amount of sludge and stone material in the common bile duct, and placement of 2 stents Markedly better pain control post procedure Continue ciprofloxacin and metronidazole antibiotics for 10 days Clear liquid diet today; advancement per gastroenterology Hold Xarelto for another 3 days in case follow-up procedure is indicated Present on Admission?: Yes (2) Valvular heart disease: Xarelto being held (see above) Cardiology consult reviewed (3) HLD (hyperlipidemia): He continues on atorvastatin; if he has quick recovery of his transaminitis, I think is okay to continue If his LFTs remain elevated, will likely go ahead and hold the statin until LFTs normalize Present on Admission?: Yes (4) CAD (coronary artery disease): Quiescent/stable Continue metoprolol, enalapril, and statin (see discussion above) Present on Admission?: Yes (5) Diabetes mellitus: Hemoglobin A1c pending Glipizide is being held Present on Admission?: Yes Admission and Anticipated Discharge Date Admission Date: November 08, 2019 Subjective The patient is seen mid-to-late afternoon after returning to the floor subsequent to his ERCP. 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 The procedure was notable for a significant amount of sludge and stone material within the common bile duct; 2 stents were placed. Upon examination currently, the patient is seated in his bed -he feels much better, actually has very little pain if any at this point in time. Review of Systems Constitutional: no fever Eyes: no problem reported Ear, Nose, Mouth, Throat: no problem reported Respiratory: no cough and no dyspnea Cardiovascular: no chest pain with activity and no dyspnea at rest Gastrointestinal: no abdominal pain Genitourinary: no dysuria Neurologic: no headache(s) Physical Exam Constitutional: WD/WN, vitals as above Eyes: PERRL, conjunctivae normal, anicteric sclerae ENMT: external ear and nose normal, oropharynx normal Neck: normal visual inspection and trachea midline; no tracheal deviation Respiratory: normal respiratory effort, lungs clear to auscultation normal respiratory effort; no respiratory distress and no labored breathing Cardiovascular: RRR, no murmur, no edema Gastrointestinal (Abdomen): normal bowel sounds, soft, nontender, no hepatosplenomegaly Skin: no rashes, warm and dry no rashes Psychiatric: Orientation: alert and oriented x 3 Speech: normal rate/rhythm/volume of speech Results & Data ([facility]) Vital Signs (Past 12 Hours) Vital Signs Temp Pulse Pulse Resp BP BP Pulse Ox 11/09/19 16:00 60 11/09/19 15:16 36.5 C 63 20 97/58 L 95 11/09/19 11:30 37.1 C 68 18 101/58 L 94 11/09/19 11:00 61 11/09/19 10:40 64 27 H 127/61 92 11/09/19 10:35 78 32 H 155/58 H 94 11/09/19 10:28 37.2 C 80 20 165/65 H 93 11/09/19 07:42 36.7 C 71 18 163/67 H 96 morning labs showing white blood cell count 11.52, hemoglobin 14.9. Creatinine 1.22 AST 108, ALT 141, alkaline phosphatase 202. Total bilirubin 4.2, direct 2.1.
[2019-11-09] MEDS: ATORVASTATIN 20 MG TAB PO SCH (20:20)
[2019-11-10] MEDS: metroNIDAZOLE 500 MG/100 ML BAG IV SCH ×3 (03:43→20:13)
[2019-11-10] MEDS: HEPARIN SOD 5,000 UNIT/0.5 ML VIAL SQ SCH ×3 (06:06→20:15)
[2019-11-10 07:20] LABS: Hematocrit (blood only) 41.2 % (42-52); Mean Corpuscular Hemoglobin 33.2 pg (25-34); Mean Corpuscular Volume 97.6 fL (80-100); Mean Platelet Volume 10.2 fL (7.4-10.4); Platelet Count 183 K/uL (130-400); RDW Coefficient of Variation 13.4 % (11.5-14.5); RDW Standard Deviation 47.5 fL (36.4-46.3); Red Blood Count 4.22 M/uL (4.7-6.1); White Blood Count 9.88 K/uL (4.8-10.8)
[2019-11-10 07:51] LABS: BUN Creatinine Ratio 16.7 (10-20); Calcium 8.7 mg/dl (8.5-10.1); Creatinine Clr Calc Pharmacy 34.6 ml/min; Est GFR (Non-African American) 39.7
[2019-11-10 07:53] LABS: Albumin Globulin Ratio 0.8 (0.9-2); Bilirubin,Total 3.8 mg/dl (0.2-1); Globulin 3.9 gm/dl (2.5-4.0); Total Protein 6.9 gm/dl (6.4-8.2)
[2019-11-10] MEDS: INSULIN ASPART 100 UNITS/ML 3 ML PEN SC SCH ×4 (08:46→20:15)
[2019-11-10] MEDS: CIPROFLOXACIN / D5W 400 MG/200 ML BAG IV SCH ×2 (08:46→20:13)
[2019-11-10] MEDS: FLUTICASONE/VILANTEROL 100/25MCG 14 PUFFS/INHALER INH SCH (08:46)
[2019-11-10] MEDS: METOPROLOL TARTRATE 25 MG TAB PO SCH ×2 (08:47→20:13)
[2019-11-10] MEDS: ENALAPRIL MALEATE 5 MG TAB PO SCH (08:47)
[2019-11-10] MEDS: FINASTERIDE 5 MG TAB PO SCH (08:49)
--- NOTE | 2019-11-10 09:33 | Gastroenterology Progress Note ---
Date of Service November 10, 2019 Assessment & Plan (1) Cholangitis: Patient admitted with evidence of recurrent common bile duct stones develop cholangitis on Monday evening. He underwent urgent ERCP yesterday with biliary decompression. The patient is improving significantly and notes no abdo clementina discomfort today. Recommendations Advance diet as tolerated Complete a 14-day course of broad-spectrum antibiotics, Cipro would be a great choice Repeat ERCP for stent removal in 6 to 8 weeks May restart anticoagulation in 48 hours Please call with any questions or concerns Consider discharge on Monday if patient continues to improve Admission and Anticipated Discharge Date Admission Date: November 08, 2019 Subjective The patient notes that he feels much improved today. His abdominal pain has completely resolved. No fevers were reported overnight. Review of Systems Constitutional: no sweats and no malaise Respiratory: no change in sputum and no hemoptysis Cardiovascular: no chest pain with activity Physical Exam Respiratory: normal respiratory effort, lungs clear to auscultation Cardiovascular: Heart Sounds: + murmur Gastrointestinal (Abdomen): Percussion/Palpation: abdomen soft; abdomen nontender and no guarding Results & Data ([facility]) Vital Signs (Past 12 Hours) Vital Signs Temp Pulse Pulse Resp BP BP Pulse Ox 11/10/19 07:41 36.4 C L 69 18 135/73 96 11/10/19 04:00 36.4 C L 60 18 112/68 95 11/09/19 22:58 62 16 96/57 L 93 11/09/19 22:53 62 Laboratory Results Laboratory Results - last 24 hr 11/09/19 11/09/19 11/09/19 10:33 11:00 16:08 WBC RBC Hgb Hct MCV MCH MCHC RDW Std Deviation RDW Coeff of Yuliya Plt Count MPV Sodium Potassium Chloride Carbon Dioxide Anion Gap BUN Creatinine Est Cr Clr Drug Dosing Est GFR ( Amer) Est GFR (Non-Af Amer) BUN/Creatinine Ratio Glucose POC Glucose 128 H 148 H 220 H Calcium Total Bilirubin AST ALT Alkaline Phosphatase Total Protein Albumin Globulin Albumin/Globulin Ratio 11/09/19 11/10/19 11/10/19 20:13 06:47 06:47 WBC 9.88 RBC 4.22 L Hgb 14.0 Hct 41.2 L MCV 97.6 MCH 33.2 MCHC 34.0 RDW Std Deviation 47.5 H RDW Coeff of Yuliya 13.4 Plt Count 183 MPV 10.2 Sodium 139 Potassium 4.0 Chloride 105 Carbon Dioxide 24 Anion Gap 10.0 BUN 26 H Creatinine 1.55 H D Est Cr Clr Drug Dosing 34.6 Est GFR ( Amer) 46.0 Est GFR (Non-Af Amer) 39.7 BUN/Creatinine Ratio 16.7 Glucose 104 H POC Glucose 238 H Calcium 8.7 Total Bilirubin 3.8 H AST 52 H ALT 97 H Alkaline Phosphatase 196 H Total Protein 6.9 Albumin 3.0 L Globulin 3.9 Albumin/Globulin Ratio 0.8 L 11/10/19 07:06 WBC RBC Hgb Hct MCV MCH MCHC RDW Std Deviation RDW Coeff of Yuliya Plt Count MPV Sodium Potassium Chloride Carbon Dioxide Anion Gap BUN Creatinine Est Cr Clr Drug Dosing Est GFR ( Amer) Est GFR (Non-Af Amer) BUN/Creatinine Ratio Glucose POC Glucose 105 H Calcium Total Bilirubin AST ALT Alkaline Phosphatase Total Protein Albumin Globulin Albumin/Globulin Ratio
[2019-11-10 11:00] LABS: Estimated Average Glucose 134 mg/dl; Hemoglobin A1C 6.3 % (4.5-5.6)
--- NOTE | 2019-11-10 12:24 | Family Medicine Progress Note ---
Date of Service November 10, 2019 Assessment & Plan (1) Cholangitis: Status post ERCP with large amount of sludge and stone material in the common bile duct, and placement of 2 stents No pain today. Transaminitis is resolving Continue ciprofloxacin and metronidazole antibiotics for 10 days Advance diet today as tolerated Hold Xarelto for another 2 days in case follow-up procedure is indicated Physical therapy evaluation completed today and it looks like he will be good to return home with family support Anticipate discharge in AM if things continue to go well. (2) Valvular heart disease: Xarelto being held (see above); may restart on Monday Cardiology consult reviewed (3) HLD (hyperlipidemia): He continues on atorvastatin; if he has quick recovery of his transaminitis, I think is okay to continue If his LFTs remain elevated, will likely go ahead and hold the statin until LFTs normalize (4) CAD (coronary artery disease): Quiescent/stable Continue metoprolol, enalapril, and statin (see discussion above) (5) Diabetes mellitus: Hemoglobin A1c is excellent at 6.3%, and at this age one could consider de-escalation of glycemic agents to forego the risk of hypoglycemia Glipizide is being held during this hospitalization Admission and Anticipated Discharge Date Admission Date: November 10, 2019 Subjective Mr. Dempsey is seen midmorning. He has no complaints. He generally feels well. His diet is been gradually increased and he seems to be tolerating this. He had a slight bump in his creatinine overnight although he does tell me that he is really starting to consume oral fluids and is also noted that his urine has picked up as well. Review of Systems Constitutional: no fever Eyes: no problem reported Ear, Nose, Mouth, Throat: no pain with swallowing Respiratory: no cough and no dyspnea Cardiovascular: no chest pain with activity, no dyspnea at rest and no paroxysmal nocturnal dyspnea Gastrointestinal: no abdominal pain Genitourinary: no dysuria Musculoskeletal: no body aches Integumentary: no rash Psychiatric: no depression Physical Exam Constitutional: WD/WN, vitals as above Eyes: PERRL, conjunctivae normal, anicteric sclerae ENMT: external ear and nose normal, oropharynx normal Neck: normal visual inspection and trachea midline; no tracheal deviation Respiratory: normal respiratory effort, lungs clear to auscultation normal respiratory effort; no respiratory distress and no labored breathing Cardiovascular: RRR, no murmur, no edema Gastrointestinal (Abdomen): normal bowel sounds, soft, nontender, no hepatosplenomegaly Skin: no rashes, warm and dry no rashes Psychiatric: Orientation: alert and oriented x 3 Speech: normal rate/rhythm/volume of speech Results & Data ([facility]) Vital Signs (Past 12 Hours) Vital Signs Temp Pulse Pulse Resp BP BP Pulse Ox 11/10/19 08:00 60 11/10/19 07:41 36.4 C L 69 18 135/73 96 11/10/19 04:00 36.4 C L 60 18 112/68 95
[2019-11-10] MEDS: ATORVASTATIN 20 MG TAB PO SCH (20:13)
[2019-11-11] MEDS ORDERED: AMOXICILLIN/CLAVULANATE 875 MG TAB PO SCH
[2019-11-11] MEDS ORDERED: ALUMINUM/MAGNESIUM SUSP 30 ML UDC PO PRN (03:40)
[2019-11-11] MEDS ORDERED: COUGH DROP (SUGAR FREE) LOZ 24 LOZ/1 BOX BUCCAL ONE (03:49)
[2019-11-11] MEDS: metroNIDAZOLE 500 MG/100 ML BAG IV SCH (03:51)
[2019-11-11 06:17] LABS: Hematocrit (blood only) 40.3 % (42-52); Hemoglobin 13.8 g/dL (14.0-18.0); Mean Corpuscular Hemoglobin 33.5 pg (25-34); Mean Corpuscular Hgb Conc 34.2 g/dL (32-36); Mean Corpuscular Volume 97.8 fL (80-100); Mean Platelet Volume 10.3 fL (7.4-10.4); Platelet Count 205 K/uL (130-400); RDW Coefficient of Variation 13.3 % (11.5-14.5); RDW Standard Deviation 47.6 fL (36.4-46.3); Red Blood Count 4.12 M/uL (4.7-6.1); White Blood Count 8.22 K/uL (4.8-10.8)
[2019-11-11] MEDS: HEPARIN SOD 5,000 UNIT/0.5 ML VIAL SQ SCH (06:17)
[2019-11-11 06:23] LABS: Albumin Level 2.8 gm/dl (3.4-5.0); BUN Creatinine Ratio 17.1 (10-20); Calcium 8.5 mg/dl (8.5-10.1); Creatinine Clr Calc Pharmacy 35.2 ml/min; Est GFR (African American) 47.1; Est GFR (Non-African American) 40.6; Potassium 4.4 mmol/L (3.5-5.1)
[2019-11-11 06:29] LABS: Albumin Globulin Ratio 0.7 (0.9-2); Bilirubin,Total 1.9 mg/dl (0.2-1); Globulin 3.9 gm/dl (2.5-4.0); Total Protein 6.7 gm/dl (6.4-8.2)
[2019-11-11] MEDS: FINASTERIDE 5 MG TAB PO SCH (08:00)
[2019-11-11] MEDS: CIPROFLOXACIN / D5W 400 MG/200 ML BAG IV SCH (08:00)
[2019-11-11] MEDS: METOPROLOL TARTRATE 25 MG TAB PO SCH (08:01)
[2019-11-11] MEDS: ENALAPRIL MALEATE 5 MG TAB PO SCH (08:01)
[2019-11-11] MEDS: INSULIN ASPART 100 UNITS/ML 3 ML PEN SC SCH (08:01)
[2019-11-11] MEDS: FLUTICASONE/VILANTEROL 100/25MCG 14 PUFFS/INHALER INH SCH (08:01)
[2019-11-11] MEDS ORDERED: AMOXICILLIN/CLAVULANATE 875MG HOME PACK PO ONE (11:10)
--- NOTE | 2019-11-11 18:15 | Discharge Summary ---
Date of Service November 11, 2019 Admission HPI Per Admitting Provider This is an 89 yo M with PMHx of CAD, SSS s/p cardiac pacemaker placed in 2011, last checked in December 2018, carotid artery stenosis, hypertension, paroxysmal A. fib, moderate aortic stenosis, DM type II, cirrhosis, BPH, asthma, history of stroke in 2009 who presents with acute onset of chest pain which began this morning around 8 AM. Patient was sitting playing puzzles on his tablet at a table, not doing anything strenuous, and acutely felt a substernal chest pain which radiated to the back and to his right shoulder blade. He had some associated shortness of breath and nausea. Patient was given a full dose aspiri n by his son who was there with him at the time, and then drove him to the hospital. Patient denies ever having a pain like this before. He was able to take all his morning medications around 7 AM including 2 Tylenol for arthritic pains before any of the above complaints started. He reports that he is "Dopper" with his walking- meaning that he is unsteady on his feet and uses a walker when he is out of the house. He lives at home with his . Pain is completely resolved at this time. Principal Diagnosis Choledocholithiasis Discharge Exam Constitutional WD/WN, vitals as above Eyes EOM intact bilaterally; no conjunctival abnormality ENMT external ear and nose normal, oropharynx normal Neck trachea midline, no thyromegaly normal visual inspection Respiratory normal respiratory effort, lungs clear to auscultation no respiratory distress Cardiovascular RRR, no murmur, no edema Gastrointestinal (Abdomen) Inspection/Auscultation: abdomen normal to inspection; abdomen not distended Musculoskeletal no cyanosis or clubbing, extremities motor strength 5/5 Skin no rashes, warm and dry Neurologic moves all extremities and awake Psychiatric Orientation: alert, oriented to person and cooperative Discharge Data Allergies Allergy/AdvReac Type Severity Reaction Status Date / Time No Known Allergies Allergy Unknown Verified 11/08/19 10:56 Consultations 11/08/19 11:43 ED Decision to Admit Stat 11/08/19 13:35 Consult Cardiology Routine Consult Case Management - Discharge Planning Routine Consult Gastroenterology Routine Procedures Performed Operation Date: 11/09/19 09:00 Actual Procedures p Endoscopic Retrograde Cholangiopancreatogram(Not Applicable) - Erick Schultz Operation Date: 11/12/19 12:30 <No data on this case meets the specified criteria> Ordered Studies 11/08/19 10:32 CT angio chest dissec wo/w con Stat 11/08/19 10:41 CT angio abdomen pelvis w con Stat 11/09/19 09:00 [place] ERCP biliary ductal Routine Hospital Course (1) Cholangitis: Status post ERCP with large amount of sludge and stone material in the common bile duct, and placement of 2 stents - Continue Augmentin for 7 more days. - Follow up with GI in 1-2 weeks for follow up of stents. (2) Valvular heart disease: Restarted on discharge. (3) HLD (hyperlipidemia): He continues on atorvastatin; if he has quick recovery of his transaminitis, I think is okay to continue. (4) CAD (coronary artery disease): Quiescent/stable - Continue metoprolol, enalapril, and statin (5) Diabetes mellitus: Hemoglobin A1c is excellent at 6.3%, and at this age one could consider de-escalation of glycemic agents to forego the risk of hypoglycemia. - Glipizide is being held during this hospitalization Total Time Total Time Spent Total Time Spent (In Minutes): 35 Discharge Plan Discharge Items Patient Disposition: Home - Self-Care Reason For Visit: CHEST PAIN Discharge Diagnosis: Bile duct stones Activity: Resume your previous activity Non-emergency contact: Primary Care Provider and Insole Reinforcer Call non-emergency contact if: your symptoms worsen and your temperature is above 101 Follow-up/Referrals: Aroldo Lomeli MD [Primary Care Provider] - Deejay Linares [Physician] - (Please see your GI doctors in 1-2 weeks to be sure you're feeling well.) Diet: Carb Consistent or DM2 Addtl Attending Provider Instructions: You were admitted to the hospital with chest pain. Our testing did not reveal anything concerning with your heart; however, we did see a gallstone that was lodged in your common bile duct with an infection behind it. The GI doctors (Dr. Schultz) were able to get the stone out and you are feeling better. We are going to send you out with another week of antibiotics to fully treat the infection that was in the bile duct. Please take the Augmentin 2 times per day for another week. Your first dose should be tonight before bed. Please see Dr. Schultz or your normal GI doctor (if it is different) in 1-2 weeks to be sure you are feeling well and to get follow up for your bile duct. Pending Studies at Discharge: No Stand-Alone Forms: My [facility], Smoking Cessation Medications and DC Order Prescriptions: New amoxicillin-pot clavulanate [Augmentin] 500-125 mg tablet 1 tab PO BID Qty: 14 RF: 0 Continued albuterol sulfate 90 mcg/actuation HFA aerosol inhaler 2 puff Inhalation QID PRN (Reason: Shortness Of Breath Or Wheezing) Qty: 18 RF: 2 atorvastatin 20 mg tablet 20 mg PO HS Qty: 90 RF: 1 benazepril 5 mg tablet 5 mg PO QAM Qty: 90 RF: 1 finasteride 5 mg tablet 5 mg PO QAM Qty: 90 RF: 1 glipizide 2.5 mg tablet extended release 24hr 2.5 mg PO DAILY Qty: 90 RF: 1 metoprolol tartrate 25 mg tablet 25 mg PO BID Qty: 180 RF: 1 Breo Ellipta 100-25 mcg/dose blister with device 1 puffs INH DAILY Qty: 180 RF: 2 Xarelto 20 mg tablet 20 mg PO PM RF: 0 acetaminophen [Tylenol Arthritis Pain] 650 mg Tablet Extended Release 650 mg PO Q12H PRN (Reason: Pain) RF: 0 Discharge Orders: Discharge Order (Routine); Ordered 11/11/19 Ordered By: Himanshu Voss Admission Data Admit Date/Time: 11/10/19 11:00 Attending Provider: Himanshu Voss Admit Provider: Maurice Alvarenga Primary Care Provider: Aroldo Lomeli Other Providers: Jose Simmons ; Deejay Linares ; Himanshu Voss Other Interventions: Discharge Summary Assessment (RN) Last Done: 11/11/19 11:52 DC Date/Time DO NOT enter until pt leaves facility: 11/11/19 12:57 Coding Level of Care Code D/C Day Management >30 mins Diagnoses Cholangitis K83.09 Valvular heart disease I38 HLD (hyperlipidemia) E78.5 CAD (coronary artery disease) I25.10 Diabetes mellitus E11.9
== END 2019-11-11 12:57 | disposition home or self-care (01) | DRG 446 ==
LOC: 2S 10:09 → ED 10:09 → SUATTDRO 11:49 → 2S 13:09 → SUATTDRO 11-10 11:00

== ENCOUNTER 2022-01-03 13:30 | Inpatient (IN) ==
[2022-01-03] MEDS ORDERED: SODIUM CHLORIDE 0.9% 1000ML 1,000 ML IV STA (14:02)
[2022-01-03 14:19] LABS: Basophils # (auto) 0.03 K/uL (0-0.2); Basophils % (auto) 0.2 %; Eosinophils # (auto) 0.07 K/uL (0-0.50); Eosinophils % (auto) 0.5 %; Hematocrit (blood only) 33.5 % (40.1-51.0); Hemoglobin 11.5 g/dl (14.0-18.0); Immature Granulocytes # (auto) 0.48 K/uL (0.00-0.02); Immature Granulocytes % (auto) 3.1 %; Lymphocytes # (auto) 2.12 K/uL (1.2-3.4); Lymphocytes % (auto) 13.9 %; Mean Corpuscular Hemoglobin 33.4 pg (25.0-34.0); Mean Corpuscular Hgb Conc 34.3 g/dL (32.0-36.0); Mean Corpuscular Volume 97.4 fL (80.0-100.0); Monocytes # (auto) 1.38 K/uL (0.24-0.82); Neutrophils # (auto) 11.22 K/uL (1.4-6.5); Neutrophils % (auto) 73.3 %; Nucleated RBC # (auto) 0.04 K/uL (0-0); Nucleated RBC % (auto) 0.3 %; Platelet Count 317 K/uL (130-400); RDW Coefficient of Variation 13.4 % (11.5-14.5); RDW Standard Deviation 47.4 fL (36.4-46.3); Red Blood Count 3.44 M/uL (4.63-6.08)
[2022-01-03 14:32] LABS: INR 1.5 (0.9-1.1); Partial Thromboplastin Ratio 1.1; Partial Thromboplastin Time 28.9 Seconds (21.0-31.0); Prothrombin Time 15.9 Seconds (9.0-12.0)
[2022-01-03 14:43] LABS: Alanine Aminotransferase 38 U/L (7-52); Albumin Globulin Ratio 1.3 (0.9-2); Albumin Level 3.7 gm/dl (3.4-5.0); Alkaline Phosphatase 155 U/L (34-104); Anion Gap 8 (3-11); Aspartate Aminotransferase 23 U/L (13-39); BUN Creatinine Ratio 65.8 (10-20); Bilirubin,Total 1.1 mg/dl (0.2-1.0); Blood Urea Nitrogen 73 mg/dl (6-23); Calcium 9.2 mg/dl (8.5-10.1); Carbon Dioxide 25 mmol/L (21-32); Chloride 101 mmol/L (98-107); Est GFR (African American) 67.9 ml/min; Est GFR (Non-African American) 58.6 ml/min; Globulin 2.9 gm/dl (2.5-4.0); Glucose 223 mg/dl (70-99(Fasting)); Potassium 4.3 mmol/L (3.5-5.1); Sodium 134 mmol/L (136-145); Total Protein 6.6 gm/dl (6.0-8.3)
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
[2022-01-03] MEDS ORDERED: PANTOPRAZOLE BOLUS/DRIP 1 EACH IV STA (14:49)
[2022-01-03] MEDS ORDERED: FAMOTIDINE 20MG IV PUSH 20 MG/5 ML SYR IV STA (14:49)
[2022-01-03] MEDS ORDERED: PANTOprazole 80 MG in DEXTROSE 5% 100 ML IV ONE (14:49)
[2022-01-03] MEDS: PANTOprazole 40 MG in DEXTROSE 5% 100 ML IV SCH ×2 (15:20→20:53)
--- NOTE | 2022-01-03 15:47 | XRay Report ---
XR chest 1V portable CLINICAL HISTORY: GIB. Evaluate cardiopulmonary status and lung bases COMPARISON STUDY: 11/08/2019 TECHNIQUE: 1 view of the chest FINDINGS: Single frontal view of the chest demonstrates the cardiomediastinal silhouette to be within normal li mits. Permanent cardiac pacer is in place. The lungs are clear of alveolar opacities. There is no melba dence for pleural effusion. There is no evidence for vascular congestion. There is no acute osseous p athology. IMPRESSION: 1. No acute cardiopulmonary disease. ACT 112: Negative or not required by law. Electronically signed by: Son Meléndez M.D. 01/03/2022 3:46 PM
--- NOTE | 2022-01-03 16:02 | CT Scan Report ---
CT abd pelvis wo con CLINICAL HISTORY: upper GIB COMPARISON STUDY: CTA abdomen from 11/08/2019 CT DOSE: 588.07 mGycm TECHNIQUE: Standard CT of the Abdomen and Pelvis was performed without IV contrast. The patient did not receive oral contrast. A dose lowering technique was utilized adhering to the principles of VINH Lee. FINDINGS: Lung base: Minimal dependent atelectasis/edema seen in the lung bases posteriorly. The heart is enlar ged with coronary artery calcification. Abdominal cavity: There is no evidence for abdominal mass, adenopathy or ascites. Liver: The liver is homogeneous in attenuation on these limited noncontrast images.. Spleen: The spleen is homogeneous in attenuation on these limited noncontrast images. Pancreas: The pancreas is homogeneous in attenuation on these limited noncontrast images. Gall Bladder: Surgical clips are again seen from previous cholecystectomy with pneumobilia again seen . Mild physiologic dilatation of common bile duct is present. Adrenal glands: The adrenal glands are normal in size and attenuation on these limited noncontrast im ages. Kidneys: The kidneys are homogeneous in attenuation on these limited noncontrast images. There is no evidence for gross renal mass, calculus or hydronephrosis bilaterally. Bowel: There is no CT evidence for active GI bleed on this noncontrast study. The bowel loops are nor david placed within the abdomen and pelvis without evidence for dilatation or obstruction. There is n o evidence for mass lesion. There are no inflammatory changes present. There is no evidence for free air. There appears to be a normal appendix in the right lower quadrant. Bladder: There is no evidence for focal bladder wall thickening, calculus or diverticulum. There is m ild diffuse thickening of bladder wall characteristic of chronic bladder obstruction. : There is no evidence for pelvic mass or adenopathy. The prostate is mildly enlarged. Vasculature: There is no evidence for focal aneurysmal dilatation of the abdominal aorta. Atheroscler otic calcification is present. Osseous structures: There is no acute osseous pathology. Extensive degenerative changes are seen with evidence for lumbar canal stenosis. IMPRESSION: 1. No CT evidence for active GI bleeding on this noncontrast study. 2. No acute intra-abdominal or pelvic abnormality on these limited noncontrast images. 3. Extensive degenerative changes of lumbar spine with evidence for lumbar canal stenosis. 4. Additional nonacute findings are delineated above. ACT 112: Negative or not required by law. Electronically signed by: Son Meléndez M.D. 01/03/2022 4:01 PM
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
[2022-01-03] MEDS ORDERED: GLUCOSE 10 TAB/TUBE PO PRN (20:23)
[2022-01-03] MEDS ORDERED: PANTOprazole 40 MG in DEXTROSE 5% 100 ML IV SCH (20:23)
[2022-01-03] MEDS ORDERED: CARBOHYDRATES FOR HYPOGLYCEMIA PO PRN (20:23)
[2022-01-03] MEDS ORDERED: ONDANSETRON INJ 2 MG/ML 2 ML VIAL IV PRN (20:23)
[2022-01-03] MEDS ORDERED: GLUCOSE 40% GEL 15 GM TUBE PO PRN (20:23)
[2022-01-03] MEDS ORDERED: DEXTROSE 50% 50 ML SYRINGE IV PRN (20:23)
[2022-01-03] MEDS ORDERED: GLUCAGON FOR INJ 1 MG VIAL SQ PRN (20:23)
[2022-01-03 20:51] LABS: Hematocrit (blood only) 31.5 % (40.1-51.0); Hemoglobin 10.7 g/dl (14.0-18.0)
[2022-01-03] MEDS: SODIUM CHLORIDE 0.9% 1000ML 1,000 ML IV SCH (20:56)
[2022-01-03] MEDS: INSULIN ASPART PER UNIT SC SCH (21:41)
[2022-01-04] MEDS: PANTOprazole 40 MG in DEXTROSE 5% 100 ML IV SCH ×4 (02:06→17:40)
[2022-01-04 02:12] LABS: Basophils # (auto) 0.02 K/uL (0-0.2); Basophils % (auto) 0.2 %; Hematocrit (blood only) 30.5 % (40.1-51.0); Hemoglobin 10.3 g/dl (14.0-18.0); Immature Granulocytes # (auto) 0.29 K/uL (0.00-0.02); Immature Granulocytes % (auto) 2.9 %; Lymphocytes # (auto) 1.71 K/uL (1.2-3.4); Lymphocytes % (auto) 16.9 %; Mean Corpuscular Hgb Conc 33.8 g/dL (32.0-36.0); Mean Corpuscular Volume 100.7 fL (80.0-100.0); Monocytes # (auto) 0.78 K/uL (0.24-0.82); Monocytes % (auto) 7.7 %; Neutrophils # (auto) 7.19 K/uL (1.4-6.5); Neutrophils % (auto) 71.3 %; Platelet Count 250 K/uL (130-400); RDW Coefficient of Variation 13.5 % (11.5-14.5); Red Blood Count 3.03 M/uL (4.63-6.08); White Blood Count 10.09 K/ul (4.8-10.8)
--- NOTE | 2022-01-04 07:37 | Hospitalist Progress Note ---
Date of Service January 04, 2022 Assessment & Plan (1) Melena: Plan: 89-year-old male with past medical history of critical aortic stenosis, CAD, DM, persistent AF on Xarelto that presents complaining of melena. (1) Melena: -Patient started on protonix drip kept NPO for EGD, protonix drip switched to 40mg PO daily -GI consulted: EGD performed today found several clean ulcers nonbleeding Mechanical soft diet today then advance as tolerated Protonix 40 mg daily for 6 weeks then 20 mg daily thereafter Carafate 4 times daily for 10 days Avoid nonsteroidals if possible -Hemoglobin dropped from 15 down to 10 stabilized -Patient was on Xarelto, held for EGD resuming tomorrow -Patient is on slow IV hydration, will need to monitor carefully secondary to patient's known critical (2) Paroxysmal A-fib: Currently rate controlled on medications held Xarelto metoprolol for EGD resuming tomorrow (3) HLD (hyperlipidemia): Continue atorvastatin as ordered (4) Carotid artery stenosis: Recent endarterectomy earlier this year await med rec, i do not see antiplatelet medications on old list but may be on these at home (5) CAD (coronary artery disease): Cardiac catheterization from October 2021 noted, patient has a moderate diffuse disease of the left circumflex and right coronary artery. LAD had a 60-70% narrowing in the midsegment. Patient was also noted to have significant calcified stenosis of the right common femoral artery, right superficial femoral artery, as well as profundus femoral arteries per report (6) Diabetes mellitus: will place only on sliding scale insulin every 6 hours with no basal coverage FENa: HH DM2 soft chew Code Status: DNR/DNI DVT PPX: Xarelto PT/OT: Ordered Case Management: Pending Dispo: med/Tele Fannie Voss Do PGY 2, FCM (2) Carotid stenosis: (3) Aortic stenosis: (4) Anticoagulant long-term use: (5) HLD (hyperlipidemia): (6) Carotid artery stenosis: (7) Diabetes mellitus: (8) Cardiac pacemaker: (9) Paroxysmal A-fib: Admission and Anticipated Discharge Date Admission Date: January 03, 2022 Supervising Physician Co-Signing Physician Notes I personally examined the patient and verified all leyva points of history and exam, discussed case, and agree with decision making with Dr Voss Feeling okay right now. No further noted bleeding. Just waiting on EGD. GI input greatly appreciated. Vitals noted, in general he is awake and alert pleasant no distress. HEENT normocephalic atraumatic mucous membranes moist. Breathing unlabored no accessory muscle use good effort. Skin shows no rashes no pallor or icterus. Neuro without focal deficits. Melenasuspected upper GI bleeding with acute blood loss anemiafortunately he is hemodynamically stable, unfortunately his most recent hemoglobin was 15.4 and September and is now 10.6, suggestive of a significant degree of blood loss. Fortunately he does not require transfusion. Xarelto on hold for now. EGD lat er today. Further decision making based on results of scope. Otherwise as above Subjective Patient seen at bedside calm comfortable cooperative, states he was hoping to have EGD done this morning, was originally supposed to be at other doctor's appointment to evaluate for aortic stenosis repair. States he has felt a bit weaker after his bouts of melana, denies any recent illness trauma, this has not happened before. Patient understands he needs to remain NPO for EGD. No acute concerns at this time. Review of Systems Review of Systems: Negative fever chills Negative headache dizziness Negative chest pain palpitations SOB Negative nausea vomitting diarrhea constipation Negative numbness tingling rash swelling Physical Exam Constitutional: WD/WN, vitals as above Eyes: PERRL, conjunctivae normal, anicteric sclerae ENMT: external ear and nose normal, oropharynx normal Neck: trachea midline, no thyromegaly Respiratory: normal respiratory effort, lungs clear to auscultation Cardiovascular: Rate/Rhythm: regular rate and regular rhythm Heart Sounds: + murmur Chest (Breasts): Chest: normal inspection of chest Gastrointestinal (Abdomen): normal bowel sounds, soft, nontender, no hepatosplenomegaly Musculoskeletal: missing fingers 2-5 on right Skin: no rashes, warm and dry Results & Data Results & Data ([facility]) Vital Signs (Past 12 Hours) Vital Signs Temp Pulse Pulse Pulse Resp BP BP 01/04/22 07:25 36.5 C 60 16 111/69 01/04/22 07:16 60 01/04/22 04:00 36.5 C 60 18 112/74 01/04/22 00:12 51 L 01/03/22 23:14 36.4 C L 60 18 100/64 01/03/22 22:04 48 L 01/03/22 20:43 36.2 C L 73 20 125/58 L Pulse Ox O2 Del Method 01/04/22 07:25 98 Room Air 01/04/22 07:16 01/04/22 04:00 98 Room Air 01/04/22 00:12 01/03/22 23:14 99 Room Air 01/03/22 22:04 01/03/22 20:43 93 Room Air Resident Activity Tracking Resident Involvement: Resident Care Provided Care Provided: Adult Hospital Medicine
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
[2022-01-04 09:29] LABS: Hematocrit (blood only) 31.3 % (40.1-51.0); Hemoglobin 10.5 g/dl (14.0-18.0)
[2022-01-04 09:51] LABS: BUN Creatinine Ratio 50.5 (10-20); Calcium 8.2 mg/dl (8.5-10.1); Creatinine Clr Calc Pharmacy 44.7 ml/min; Est GFR (African American) 76.1 ml/min; Est GFR (Non-African American) 65.6 ml/min; Magnesium 2.3 mg/dl (1.7-2.4); Potassium 4.5 mmol/L (3.5-5.1)
[2022-01-04] MEDS: INSULIN ASPART PER UNIT SC SCH ×4 (10:00→20:20)
[2022-01-04 10:04] LABS: Estimated Average Glucose 177 mg/dl; Hemoglobin A1C 7.8 % (4.5-5.6)
[2022-01-04] MEDS: FLUTICASONE/VILANTEROL 100/25MCG 14 PUFFS/INHALER INH SCH (10:50)
[2022-01-04] MEDS: SODIUM CHLORIDE 0.9% 1000ML 1,000 ML IV SCH (14:06)
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
[2022-01-04 14:53] LABS: Hematocrit (blood only) 30.1 % (40.1-51.0); Hemoglobin 10.6 g/dl (14.0-18.0)
[2022-01-04] MEDS ORDERED: fentaNYL citrate 100 MCG/2 ML VIAL ONE (15:43)
[2022-01-04] MEDS ORDERED: LIDOCAINE VISCOUS 2% 15 ML UDC MT ONE (15:48)
[2022-01-04] MEDS ORDERED: KETAMINE 50 MG/5 ML SYRINGE ONE (16:07)
[2022-01-04] MEDS ORDERED: LIDOCAINE 2% MPF LOCAL 5 ML VIAL INFIL ONE (16:21)
[2022-01-04] MEDS ORDERED: PROPOFOL IV EMULSION 10 MG/ML 20 ML VIAL IV ONE (16:21)
[2022-01-04] MEDS ORDERED: PHENYLEPHRINE 100MCG/ML 5ML SYR ONE (16:21)
--- NOTE | 2022-01-04 16:23 | GI REPORT ---
Patient Name: Dagoberto Dempsey Procedure Date: 01/04/2022 3:54 PM Date of : 1930 Admit Type: Inpatient Age: 89 Gender: Male Attending MD: Erick Schultz DO Procedure: Upper GI endoscopy Providers: Erick Schultz DO Referring MD: Referred Self Indications: Melena Medicines: Monitored Anesthesia Care Complications: No immediate complications. Estimated blood loss: Minimal. Estimated Blood Loss: Estimated blood loss was minimal. Procedure: Pre-Anesthesia Assessment: - Prior to the procedure, a History and Physical was performed, and patient medications, allergies and sensitivities were reviewed. The patient's tolerance of previous anesthesia was reviewed. - The risks and benefits of the procedure and the sedation options and risks were discussed with the patient. All questions were answered and informed consent was obtained. - Patient identification and proposed procedure were verified prior to the procedure by the physician, the nurse and the soft metals hand engraver. The procedure was verified in the procedure room. - Pre-procedure physical examination revealed no contraindications to sedation. - ASA Grade Assessment: IV - A patient with severe systemic disease that is a constant threat to life. - After reviewing the risks and benefits, the patient was deemed in satisfactory condition to undergo the procedure. - The anesthesia plan was to use monitored anesthesia care (MAC). - Immediately prior to administration of medications, the patient was re-assessed for adequacy to receive sedatives. - The heart rate, respiratory rate, oxygen saturations, blood pressure, adequacy of pulmonary ventilation, and response to care were monitored throughout the procedure. - The physical status of the patient was re-assessed after the procedure. After obtaining informed consent, the endoscope was passed under direct vision. Throughout the procedure, the patient's blood pressure, pulse, and oxygen saturations were monitored continuously. The Endoscope was introduced through the mouth, and advanced to the third part of duodenum. The upper GI endoscopy was accomplished without difficulty. The patient tolerated the procedure well. Findings: The examined esophagus was normal. The Z-line was regular and was found 40 cm from the incisors. Diffuse mild inflammation characterized by congestion (edema), erythema and granularity was found in the entire examined stomach. Biopsies were taken with a cold forceps for histology. The pathology specimen was placed into Bottle A. Estimated blood loss was minimal. Four non-obstructing non-bleeding superficial gastric ulcers with no stigmata of bleeding were found in the gastric antrum. The largest lesion was 6 mm in largest dimension. The examined duodenum was normal. Impression: - Normal esophagus. - Z-line regular, 40 cm from the incisors. - Gastritis. Biopsied. - Non-obstructing non-bleeding gastric ulcers with no stigmata of bleeding. Likely an NSAID induced etiology. - Normal examined duodenum. Recommendation: - Return patient to hospital [facility] for ongoing care. - Mechanical soft diet. - Use Protonix (pantoprazole) 40 mg PO daily for 6 weeks then reduce to 20 mg per day. - Use sucralfate tablets 1 gram PO QID for 10 days. - Iron supplement for 6-8 weeks upon discharge Erick Schultz D.O. Erick Schultz, 01/04/2022 4:22:44 PM This report has been signed electronically. Note Initiated On: 01/04/2022 3:54 PM Number of Addenda: 0 I attest to the content of the Intraoperative Record and orders documented therein, exceptions below {[id number]}
--- NOTE | 2022-01-04 16:24 | Communication Note ---
Date of Service: January 04, 2022 The patient underwent upper endoscopy today was found to have several clean- based ulcers in the gastric antrum. Recommendations Mechanical soft diet today then advance as tolerated Protonix 40 mg daily for 6 weeks then 20 mg daily thereafter Carafate 4 times daily for 10 days Avoid nonsteroidals if possible Please call with questions, GI to sign off
--- NOTE | 2022-01-04 16:30 | Anesthesiology Progress Note ---
Date of Service January 04, 2022 Anesthesia Post Procedure Vital Signs Vital Signs: Temp Pulse Pulse Pulse Resp BP BP 01/04/22 14:58 36.1 C L 73 16 164/61 H 01/04/22 11:20 62 18 126/78 01/04/22 07:25 36.5 C 60 16 111/69 01/04/22 07:16 60 01/04/22 04:00 36.5 C 60 18 01/04/22 00:12 51 L 01/03/22 23:14 36.4 C L 60 18 01/03/22 22:04 48 L 01/03/22 20:43 36.2 C L 73 20 01/03/22 19:00 60 19 01/03/22 19:00 111/49 L 01/03/22 18:30 60 22 01/03/22 18:30 116/48 L 01/03/22 18:01 120/52 L 01/03/22 18:01 69 22 01/03/22 18:00 62 20 01/03/22 17:31 104/47 L 01/03/22 17:31 60 16 01/03/22 17:00 60 18 01/03/22 17:00 117/53 L 01/03/22 16:30 60 17 01/03/22 16:30 136/76 BP Pulse Ox O2 Del Method 01/04/22 14:58 100 Room Air 01/04/22 11:20 98 Room Air 01/04/22 07:25 98 Room Air 01/04/22 07:16 01/04/22 04:00 112/74 98 Room Air 01/04/22 00:12 01/03/22 23:14 100/64 99 Room Air 01/03/22 22:04 01/03/22 20:43 125/58 L 93 Room Air 01/03/22 19:00 95 01/03/22 19:00 01/03/22 18:30 95 01/03/22 18:30 01/03/22 18:01 01/03/22 18:01 95 01/03/22 18:00 95 01/03/22 17:31 01/03/22 17:31 99 01/03/22 17:00 01/03/22 17:00 01/03/22 16:30 100 01/03/22 16:30 Transfer of Care Handoff Completed per policy Notes Mental Status: alert / awake / arousable and participated in evaluation Patient Amnestic to Procedure: Yes Nausea / Vomiting: adequately controlled Pain: adequately controlled Airway Patency, RR, SpO2: stable & adequate BP & HR: stable & adequate Hydration State: stable & adequate Anesthetic Complications: no major complications apparent and Pt Satisfied with anesthetic care
--- NOTE | 2022-01-04 17:00 | Electrocardiogram Report ---
Test Reason : Blood Pressure : / mmHG Vent. Rate : 061 BPM Atrial Rate : 018 BPM P-R Int : 000 ms QRS Dur : 170 ms QT Int : 502 ms P-R-T Axes : 000 -79 097 degrees QTc Int : 505 ms Poor data quality, interpretation may be adversely affected Ventricular-paced rhythm Abnormal ECG When compared with ECG of 08-NOV-2019 10:19, Previous ECG has undetermined rhythm, needs review Confirmed by Isaias Soler ([id number]) on 01/04/2022 4:59:29 PM Referred By: REFERRED SELF Confirmed By:Isaias Soler
--- NOTE | 2022-01-04 18:37 | Billing Data ---
Date of Service January 04, 2022 Coding Level of Care Code 80311 Subseq Hosp Care Lvl 3
[2022-01-04] MEDS: METOPROLOL TARTRATE 25 MG TAB PO SCH (20:23)
[2022-01-04] MEDS ORDERED: ATORVASTATIN 20 MG TAB PO SCH (21:00)
[2022-01-05 00:59] LABS: Hemoglobin 9.5 g/dl (14.0-18.0)
[2022-01-05] MEDS: SODIUM CHLORIDE 0.9% 1000ML 1,000 ML IV SCH (05:39)
[2022-01-05] MEDS: METOPROLOL TARTRATE 25 MG TAB PO SCH (07:42)
[2022-01-05] MEDS: FLUTICASONE/VILANTEROL 100/25MCG 14 PUFFS/INHALER INH SCH (07:43)
[2022-01-05] MEDS: INSULIN ASPART PER UNIT SC SCH ×2 (07:47→12:03)
[2022-01-05 07:51] LABS: Hematocrit (blood only) 28.3 % (40.1-51.0); Hemoglobin 9.8 g/dl (14.0-18.0); Mean Corpuscular Hemoglobin 34.5 pg (25.0-34.0); Mean Corpuscular Hgb Conc 34.6 g/dL (32.0-36.0); Mean Corpuscular Volume 99.6 fL (80.0-100.0); Mean Platelet Volume 10.2 fL (9.4-12.4); Platelet Count 234 K/uL (130-400); RDW Coefficient of Variation 13.9 % (11.5-14.5); RDW Standard Deviation 49.4 fL (36.4-46.3); Red Blood Count 2.84 M/uL (4.63-6.08); White Blood Count 9.02 K/ul (4.8-10.8)
[2022-01-05 08:17] LABS: BUN Creatinine Ratio 35.6 (10-20); Calcium 7.9 mg/dl (8.5-10.1); Creatinine Clr Calc Pharmacy 44.7 ml/min; Est GFR (African American) 76.1 ml/min; Est GFR (Non-African American) 65.6 ml/min; Potassium 4.3 mmol/L (3.5-5.1)
--- NOTE | 2022-01-05 08:27 | Hospitalist Progress Note ---
Date of Service January 05, 2022 Assessment & Plan Admission and Anticipated Discharge Date Admission Date: January 03, 2022 Results & Data Results & Data ([facility]) Vital Signs (Past 12 Hours) Vital Signs Temp Pulse Pulse Resp BP Pulse Ox O2 Del Method 01/05/22 08:06 Room Air 01/05/22 07:15 36.3 C L 60 16 126/61 95 Room Air 01/05/22 03:31 36.5 C 62 18 100/58 L 97 Room Air 01/04/22 22:59 36.6 C 67 18 120/75 97 Room Air 01/04/22 23:07 63
[2022-01-05] MEDS ORDERED: RIVAROXABAN 20 MG TAB PO SCH (09:00)
[2022-01-05] MEDS ORDERED: POTASSIUM CHLORIDE CRTAB 20 MEQ TABCR PO SCH (09:00)
[2022-01-05] MEDS ORDERED: PANTOprazole 40 MG TAB PO SCH (09:00)
[2022-01-05] MEDS ORDERED: ENALAPRIL MALEATE 5 MG TAB PO SCH (09:00)
[2022-01-05] MEDS ORDERED: RIVAROXABAN 15 MG TAB PO SCH (09:00)
--- NOTE | 2022-01-05 09:22 | Gastroenterology Progress Note ---
Date of Service January 05, 2022 Assessment & Plan (1) Acute upper gastrointestinal bleeding: Plan: 89 year old male anticoagulated on Xarelto, last dose yesterday, presenting with melena, onset w/ drop in HGB From 15 --> 10 w/ BUN 73. EGD w/ non- obstructing non-bleeding gastric ulcers w/ no stigmata of bleeding. He has remained hemodynamically stable, stable HGB w/ decreasing BUN Mechanical soft diet Use Protonix (pantoprazole) 40 mg PO daily for 6 weeks then reduce to 20 mg per day. Use sucralfate tablets 1 gram PO QID for 10 days. Iron supplement for 6-8 weeks upon discharge No plan for recall endoscopy Will sign off. Thank you for allowing us to participate in the care of this patient. Please call with any acute changes, questions or concerns. Please see addendum below with additional recommendation from my supervising physician. Admission and Anticipated Discharge Date Admission Date: January 03, 2022 Supervising Physician Co-Signing Physician Notes I saw and evaluated the patient. He underwent upper endoscopy yesterday which was notable for mild gastritis in addition to several clean-based antral ulcers. Please note the recommendations as above, given his comorbid medical conditions a surveillance upper endoscopy will not be offered to this patient. Subjective S/P EGD w/ non-obstructing non-bleeding gastric ulcers with no stigmata of bleeding. Pt notes this AM he is feeling well. Denies abd pain, nausea, vomiting. No GERD, dysphagia. He had BM last evening which was mixed brown/black. No hematochezia. EGD 2021: Normal esophagus. - Z-line regular, 40 cm from the incisors. - Gastritis. Biopsied. - Non-obstructing non-bleeding gastric ulcers with no stigmata of bleeding. Likely an NSAID induced etiology. - Normal examined duodenum Review of Systems Review of Systems: All systems reviewed & are unremarkable except as noted in HPI & below Physical Exam Constitutional: WD/WN, vitals as above Neck: trachea midline, no thyromegaly Respiratory: normal respiratory effort, lungs clear to auscultation Gastrointestinal (Abdomen): normal bowel sounds, soft, nontender, no hepatosplenomegaly Skin: no rashes, warm and dry Results & Data ([facility]) Vital Signs (Past 12 Hours) Vital Signs Temp Pulse Pulse Resp BP Pulse Ox O2 Del Method 01/05/22 08:06 Room Air 01/05/22 07:15 36.3 C L 60 16 126/61 95 Room Air 01/05/22 03:31 36.5 C 62 18 100/58 L 97 Room Air 01/04/22 22:59 36.6 C 67 18 120/75 97 Room Air 01/04/22 23:07 63 Laboratory Results 01/05/22 01/05/22 01/05/22 Range/Units 07:18 07:15 07:15 WBC 9.02 (4.8-10.8) K/ul RBC 2.84 L (4.63-6.08) M/uL Hgb 9.8 L (14.0-18.0) g/dl Hct 28.3 L (40.1-51.0) % MCV 99.6 (80.0-100.0) fL MCH 34.5 H (25.0-34.0) pg MCHC 34.6 (32.0-36.0) g/dL RDW Std Deviation 49.4 H (36.4-46.3) fL RDW Coeff of Yuliya 13.9 (11.5-14.5) % Plt Count 234 (130-400) K/uL MPV 10.2 (9.4-12.4) fL Sodium 136 (136-145) mmol/L Potassium 4.3 (3.5-5.1) mmol/L Chloride 108 H (98-107) mmol/L Carbon Dioxide 22 (21-32) mmol/L Anion Gap 6 (3-11) BUN 36 H (6-23) mg/dl Creatinine 1.01 (0.6-1.4) mg/dl Est Cr Clr Drug Dosing 44.7 ml/min Est GFR ( Amer) 76.1 ml/min Est GFR (Non-Af Amer) 65.6 ml/min BUN/Creatinine Ratio 35.6 H (10-20) Glucose 120 H (70-99(Fasting)) mg/dl POC Glucose 106 H (70-99) mg/dl Estimat Average Glucose mg/dl Hemoglobin A1c (4.5-5.6) % Calcium 7.9 L (8.5-10.1) mg/dl Magnesium (1.7-2.4) mg/dl 07/01/04/22 01/04/22 Range/Units 00:37 20:16 17:27 WBC (4.8-10.8) K/ul RBC (4.63-6.08) M/uL Hgb 9.5 L (14.0-18.0) g/dl Hct 28.0 L (40.1-51.0) % MCV (80.0-100.0) fL MCH (25.0-34.0) pg MCHC (32.0-36.0) g/dL RDW Std Deviation (36.4-46.3) fL RDW Coeff of Yuliya (11.5-14.5) % Plt Count (130-400) K/uL MPV (9.4-12.4) fL Sodium (136-145) mmol/L Potassium (3.5-5.1) mmol/L Chloride (98-107) mmol/L Carbon Dioxide (21-32) mmol/L Anion Gap (3-11) BUN (6-23) mg/dl Creatinine (0.6-1.4) mg/dl Est Cr Clr Drug Dosing ml/min Est GFR ( Amer) ml/min Est GFR (Non-Af Amer) ml/min BUN/Creatinine Ratio (10-20) Glucose (70-99(Fasting)) mg/dl POC Glucose 155 H 123 H (70-99) mg/dl Estimat Average Glucose mg/dl Hemoglobin A1c (4.5-5.6) % Calcium (8.5-10.1) mg/dl Magnesium (1.7-2.4) mg/dl 01/04/22 01/04/22 01/04/22 Range/Units 14:27 12:03 09:08 WBC (4.8-10.8) K/ul RBC (4.63-6.08) M/uL Hgb 10.6 L 10.5 L (14.0-18.0) g/dl Hct 30.1 L 31.3 L (40.1-51.0) % MCV (80.0-100.0) fL MCH (25.0-34.0) pg MCHC (32.0-36.0) g/dL RDW Std Deviation (36.4-46.3) fL RDW Coeff of Yuliya (11.5-14.5) % Plt Count (130-400) K/uL MPV (9.4-12.4) fL Sodium (136-145) mmol/L Potassium (3.5-5.1) mmol/L Chloride (98-107) mmol/L Carbon Dioxide (21-32) mmol/L Anion Gap (3-11) BUN (6-23) mg/dl Creatinine (0.6-1.4) mg/dl Est Cr Clr Drug Dosing ml/min Est GFR ( Amer) ml/min Est GFR (Non-Af Amer) ml/min BUN/Creatinine Ratio (10-20) Glucose (70-99(Fasting)) mg/dl POC Glucose 160 H (70-99) mg/dl Estimat Average Glucose mg/dl Hemoglobin A1c (4.5-5.6) % Calcium (8.5-10.1) mg/dl Magnesium (1.7-2.4) mg/dl 01/04/22 01/04/22 Range/Units 09:08 09:08 WBC (4.8-10.8) K/ul RBC (4.63-6.08) M/uL Hgb (14.0-18.0) g/dl Hct (40.1-51.0) % MCV (80.0-100.0) fL MCH (25.0-34.0) pg MCHC (32.0-36.0) g/dL RDW Std Deviation (36.4-46.3) fL RDW Coeff of Yuliya (11.5-14.5) % Plt Count (130-400) K/uL MPV (9.4-12.4) fL Sodium 138 (136-145) mmol/L Potassium 4.5 (3.5-5.1) mmol/L Chloride 106 (98-107) mmol/L Carbon Dioxide 26 (21-32) mmol/L Anion Gap 6 (3-11) BUN 51 H D (6-23) mg/dl Creatinine 1.01 (0.6-1.4) mg/dl Est Cr Clr Drug Dosing 44.7 ml/min Est GFR ( Amer) 76.1 ml/min Est GFR (Non-Af Amer) 65.6 ml/min BUN/Creatinine Ratio 50.5 H (10-20) Glucose 146 H (70-99(Fasting)) mg/dl POC Glucose (70-99) mg/dl Estimat Average Glucose 177 mg/dl Hemoglobin A1c 7.8 H (4.5-5.6) % Calcium 8.2 L (8.5-10.1) mg/dl Magnesium 2.3 (1.7-2.4) mg/dl
--- NOTE | 2022-01-05 17:56 | Billing Data ---
Date of Service January 05, 2022 Coding Level of Care Code D/C DAY MANAGEMENT <30 MINS
--- NOTE | 2022-01-05 18:04 | Discharge Summary ---
Date of Service January 05, 2022 Admission HPI Per Admitting Provider This is a 89-year-old male with past medical history of critical aortic stenosis, CAD, DM, persistent AF on Xarelto that presents complaining of melena. Patient is accompanied by his son both are good historians. Patient tells me that he initially had an episode of melena approximately 4 days prior to admission. This was a small amount although he did note that the stool was black. Bowel movements are painless. He denies any abdominal pain. He he did note a diminished appetite although he was able to tolerate food and liquids without issues and had no nausea or vomiting. He felt the episodes were self-limited and therefore did not seek any medical attention and actually noted some constipation over the weekend. However, today he had a large volume of melena which prompted him to come to the emergency room. Patient does note he has been progressively more weak over the past few weeks. Son notes that the patient has had diminished p.o. intake. Of note, patient was diagnosed with critical aortic stenosis and is currently getting worked up for possible TAVR. He did have a recent cardiac catheterization. In fact, he had appointment tomorrow with the [facility] at [facility] to further discuss this intervention. Patient denies any significant NSAID intake but he does note some pain in his left wrist that was previously treated with prednisone and tramadol. He denies any recent endoscopy to his memory. Admission Exam Per Admitting Provider Constitutional: cooperative; no acute distress non-jaundiced. anicteric Neck: trachea midline, no thyromegaly Respiratory: normal respiratory effort Auscultation: lungs clear to auscultation bilaterally; no crackles, no rales, no rhonchi and no wheezes Cardiovascular: Rate/Rhythm: regular rate and regular rhythm Heart Sounds: normal S1 and normal S2 Gastrointestinal (Abdomen): Inspection/Auscultation: abdomen normal to inspection Percussion/Palpation: abdomen soft; abdomen nontender, no guarding, abdomen not rigid and no hepatosplenomegaly Musculoskeletal: no tenderness L wrist. 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) Skin: no rashes, warm and dry Principal Diagnosis Gastric Ulcer with Upper GI bleed Discharge Exam Constitutional: WD/WN, vitals as above Eyes: PERRL, conjunctivae normal, anicteric sclerae ENMT: external ear and nose normal, oropharynx normal Neck: trachea midline, no thyromegaly Respiratory: normal respiratory effort, lungs clear to auscultation Cardiovascular: Rate/Rhythm: regular rate and regular rhythm Heart Sounds: + murmur Chest (Breasts): Chest: normal inspection of chest Gastrointestinal (Abdomen): normal bowel sounds, soft, nontender, no hepatosplenomegaly Musculoskeletal: missing fingers 2-5 on right Skin: no rashes, warm and dry Discharge Data Allergies Allergy/AdvReac Type Severity Reaction Status Date / Time No Known Allergies Allergy Unknown Verified 01/03/22 17:55 Consultations 01/03/22 20:23 Consult Gastroenterology Routine Procedures Performed Operation Date: 01/04/22 16:55 Actual Procedures p EGD Biopsy Cytology - Erick Schultz DO Ordered Studies 01/03/22 15:29 CT Abd and Pelvis [CT abd pelvis wo con] Stat Hospital Course (1) Melena: 89-year-old male with past medical history of critical aortic stenosis, CAD, DM, persistent AF on Xarelto that presents complaining of melena. -Reduced Xarelto to 15mg daily -started Protonix 40mg daily for 6wks, then reduce to 20mg daily -started sucralfate 1g QID for 10 days -started iron supplement -Avoid NSAIDS (1) Melena: Patient started on protonix drip kept NPO for EGD, protonix drip switched to 40mg PO daily. GI consulted: EGD performed today found several clean ulcers nonbleeding. Advanced diet, recommend Protonix 40 mg daily for 6 weeks then 20 mg daily thereafter, Carafate 4 times daily for 10 days. Avoid nonsteroidals if possible. Hemoglobin dropped from 15 down to 10 stabilized. No additional Melana noted. (2) Paroxysmal A-fib: continue metoprolol, Xarelto reduced to 15mg per patient's age/comorbidities (3) HLD (hyperlipidemia): Continue atorvastatin as ordered (4) Carotid artery stenosis: Recent endarterectomy earlier this year, no noted antiplatelets on record (5) CAD (coronary artery disease): Cardiac catheterization from October 2021 noted, patient has a moderate diffuse disease of the left circumflex and right coronary artery. LAD had a 60-70% narrowing in the midsegment. Patient was also noted to have significant calcified stenosis of the right common femoral artery, right superficial femoral artery, as well as profundus femoral arteries per report (6) Diabetes mellitus: On insulin in hospital, may resume home meds (2) Carotid stenosis: (3) Aortic stenosis: (4) Anticoagulant long-term use: (5) HLD (hyperlipidemia): (6) Diabetes mellitus: (7) Cardiac pacemaker: (8) Paroxysmal A-fib: Total Time Total Time Spent Total Time Spent (In Minutes): see attending attestation Discharge Plan Discharge Items Patient Disposition: Home - Self-Care Reason For Visit: MELENA Discharge Diagnosis: Gastric Ulcers, Upper GI bleed Activity: Per Instructions section Non-emergency contact: Primary Care Provider Call non-emergency contact if: you have any medication questions, your symptoms worsen, your pain is worsening and you have a fever Follow-up/Referrals: Daxa Machuca CRNP [Primary Care Provider] - Diet: Regular Addtl Attending Provider Instructions: You were admitted to the hospital for dark tarry stool secondary to a gastrointestinal bleed. You were evaluated by Gastroenterology, who performed a scope of your stomach and found several gastric ulcers. You have been started on stomach protective medications called Protonix and Sucralfate, please continue taking these medications and follow up with your PCP. Please take iron sup plements for the next few weeks to allow your hemoglobin levels to increase to normal levels again. One of the most common causes of gastric ulcers is usage of NSAIDS such as Ibuprofen, aspirin, Aleve, Motrin, etc. We advise you to avoid NSAID type medication in the future to prevent reoccurrence of your ulcers. A discharge summary will be sent to your primary care physician to ensure continuity of care. Please bring this discharge summary with you to your next office appointment so that your provider can review it at that time. Follow-up appointments: Make a follow-up appointment with your PCP within the next week. It is very important that you follow up with them shortly after discharge from the hospital. Keep all your follow-up appointments as already scheduled. If you cannot make an appointment, notify your provider. Medications: Your medication list has been reviewed and reconciled upon discharge to ensure accuracy and continuity of care. An updated list of all your medications is included with your hospital discharge paperwork. Please review this list closely, and make note of any changes. * We sent a new medication called Protonix to your pharmacy. Take Protonix (pantoprazole) 40mg one tablet daily for 6 weeks. Afterwards, discuss with your PCP about decreasing your dosage to 20mg daily. * We sent a new medication called Sucralfate to your pharmacy. Take Sucralfate 1g one tablet four times a day for 10 days. * We have adjusted your Xarelto dose to 15mg daily to account for your age and comorbidities. * Please take iron supplements 1 tab daily for the next 8 weeks Take your medications as instructed; do not skip a dose of your medicines. Make sure all of your doctors know every medicine you are taking (including [id number] medicines, vitamins, and supplements). Call your primary care provider before taking any new medicines (including [id number] medicines, vitamins, and supplements), because some of these may interact with your current medications, or may make your symptoms worse. Tell your primary care provider if you cannot afford your medications. CONTACT YOUR PRIMARY CARE PROVIDER if you experience any of the following: black tarry stool, or bright red stool Weakness, dizziness, abdominal pain Difficulty following your treatment plan, or difficulty taking medications CALL 911 OR GO TO THE EMERGENCY DEPARTMENT if you experience any of the following: Sudden, severe abdominal pain or nausea/vomiting Severe chest pain, or chest pain that radiates (moves) to your jaw or arm Sudden, severe shortness of breath or difficulty breathing Thank you for allowing us to participate in your care. Pending Studies at Discharge: No Stand-Alone Forms: My [facility], Smoking Cessation Medications and DC Order Prescriptions: New Xarelto 15 mg Tablet 15 mg PO QAM 30 Days Qty: 30 0RF pantoprazole 40 mg Tablet,Delayed Release (Dr/Ec) 40 mg PO QAM 42 Days Qty: 42 0RF sucralfate 1 gram tablet 1 g PO QID 10 Days Qty: 40 0RF Continued albuterol sulfate 90 mcg/actuation HFA aerosol inhaler 2 puff Inhalation QID PRN (Reason: Shortness Of Breath Or Wheezing) Qty: 18 2RF atorvastatin 20 mg tablet 20 mg PO HS Qty: 90 3RF Jardiance 10 mg tablet 10 mg PO DAILY Qty: 30 11RF Rx Instructions: d/c metformin Breo Ellipta 100-25 mcg/dose blister with device 1 inh INH DAILY Qty: 180 3RF metoprolol tartrate 25 mg tablet 25 mg PO BID Qty: 180 3RF benazepril 5 mg tablet 5 mg PO QAM Qty: 90 3RF ursodiol 300 mg capsule 300 mg PO BID furosemide [Lasix] 40 mg tablet 40 mg PO QAM potassium chloride 20 mEq tablet extended release 20 meq PO DAILY hydrocodone-acetaminophen 5-325 mg tablet 1 tab PO Q8H PRN (Reason: pain) Qty: 21 0RF prednisone 50 mg tablet 50 mg PO DAILY Qty: 7 0RF Rx Instructions: finished today acetaminophen [Tylenol Arthritis Pain] 650 mg Tablet Extended Release 650 mg PO Q12H PRN (Reason: Pain) Discontinued Xarelto 20 mg tablet 20 mg PO QAM Rx Instructions: Patient states he takes in am. Discharge Orders: Discharge Order (Routine); Ordered 01/05/22 Ordered By: Fannie Gallardo/Other Patient Handouts: Managing Type 2 Diabetes Admission Data Admit Date/Time: 01/03/22 17:41 Attending Provider: Dung Lim Admit Provider: Bill Vasquez Primary Care Provider: Daxa Machuca Other Providers: Erick Schultz Other Interventions: Discharge Summary Assessment (RN) Last Done: 01/04/22 16:56 Supervising Physician Co-Signing Physician Notes I personally examined the patient and verified all leyva points of history and exam, discussed case, and agree with decision making with Dr Voss Feels up to going home. Scope and plan reviewed with patient and family. Vitals noted, in general he is awake and alert pleasant no distress. HEENT normocephalic atraumatic mucous membranes moist. Breathing unlabored no accessory muscle use good effort. Skin shows no rashes no pallor or icterus. Neuro without focal deficits. Melenasuspected upper GI bleeding with acute blood loss anemiadue to peptic ulcer disease. For Protonix, Carafate, avoid NSAIDs, avoid aspirin, iron supplementation, serial CBC, timeoutpatient follow-up. Stable for home. Otherwise as above Resident Activity Tracking Resident Involvement: Resident Care Provided Care Provided: Adult Hospital Medicine
== END 2022-01-05 15:08 | disposition home or self-care (01) | DRG 379 ==
LOC: ED 13:30 → SUATTDRO 17:41 → 2S 17:41